=== PATIENT | male | born 1955 | race Caucasian/White ===

== ENCOUNTER 2016-12-26 07:54 | Emergency (ER) | payer OTHER ==
[~2016-12-26] VITALS: Ht 182.9 cm; Wt 94.0 kg
[~2016-12-26 07:54] MED LIST: ASPEC325 PO; LISI-461 PO; SIMV10TA2 PO
[2016-12-26 08:05] VITALS: TEMP 36.8; Ht 182.9 cm; Wt 94.0 kg
[2016-12-26] MEDS ORDERED: ASPI325T39 PO (08:30)
[2016-12-26] MEDS ORDERED: ROPI0.5T15 PO (08:30)
[2016-12-26] MEDS ORDERED: MULT-506 PO (08:30)
[2016-12-26] MEDS ORDERED: LORA-741 PO (08:30)
--- NOTE | 2016-12-26 08:32 | EMERGENCY ROOM VISIT NOTE ---
History Report prepared by Contreras: Salud Montenegro Under the Supervision of: Dr. Douglas Soares M.D. First contact with patient: 08:14 Chief Complaint: NAUSEA Stated Complaint: NOT SLEEPING,CANNOT SIT DOWN,NAUSEA Nursing Triage Summary: pt here with nausea, pt having burning pain all over. pt states this all started after masturbating. pt states feeling jittery, legs cramping. feels anxious. History of Present Illness The patient is a 61 year old male who presents to the Emergency Room with complaints of worsening tingling with onset one week ago. He rates his discomfort as a 10/10. The patient states that he had a stroke 5-6 years ago and that he still has weakness on his right side. He has had restless leg syndrome and neuropathy over the years. Last week, he states he drank too much alcohol and masturbated, and that afterwards, he felt as if an "electrical storm " was going on in his head. Since then, he cannot sit down without having jittery legs. He states that he has been in a "hazy fog." He has a "tinge" throughout his head. The patient started to feel better during the week. However , yesterday, he started to feel as if both legs were had a evqtejek-box-qatwp sensation. One day ago, he became very nauseated. He states that he is very scared. The patient denies fevers, headaches, trauma, taking a blood thinner, chest pain, shortness of breath, thinking of hurting himself. Additionally, the patient has a history of sciatica. Source of History: patient Onset: one week ago Position: other (global ) Symptom Intensity: 10/10 Quality: other (tingling) Timing: worsening Associated Symptoms: + nausea, No SOB, No chest pain, No fevers, No headache Note: He states that he has been in a "hazy fog." He has a "tinge" throughout his head. The patient started to feel better during the week. However, yesterday, he started to feel as if both legs were had a gswlncgg-udg-tuedc sensation. Review of Systems See HPI for pertinent positives & negatives. A total of 10 systems reviewed and were otherwise negative. Past Medical & Surgical Medical Problems: (1) Allergic reaction (2) Hemorrhoids (3) HTN (hypertension) (4) Sciatica Old medical records were reviewed. Nurse's notes were reviewed and I agree with. Family History Cancer Hypertension Social History Smoking Status: Former Smoker Marital Status: Housing Status: lives with family Occupation Status: unemployed Current/Historical Medications Scheduled Aspirin (Aspirin Ec), 325 MG PO DAILY Lisinopril (Zestril), 10 MG PO QAM Multivitamin (Multivitamin), 1 TAB PO DAILY Ropinirole (Requip), 0.5 MG PO HS Scheduled PRN Lorazepam (Ativan), 0.5 MG PO HS PRN for . Lorazepam (Ativan), 1 MG PO Q8 PRN for Anxiety/Agitation Allergies Coded Allergies: No Known Allergies (Verified , 12/26/16) Physical Exam Vital Signs Date Time Temp Pulse Resp B/P Pulse Ox O2 Delivery O2 Flow Rate FiO2 12/26/16 10:20 72 17 114/70 96 Room Air 12/26/16 09:01 68 12/26/16 09:00 65 20 112/70 96 Room Air 12/26/16 08:05 36.8 88 16 137/84 98 Room Air Physical Exam General: Non ill appearing, mildly anxious older male in no acute distress. HEENT: Normal cephalic atraumatic. Pupils are equal round and reactive to light. Extraocular movements are intact. Oropharynx is pink with moist mucous membranes. No swelling of the mouth lips or tongue. Neck: Supple with a midline trachea. No meningeal signs or stiffness, no JVD or bruits. No Stridor. Chest: Clear to auscultation bilaterally. No wheezes or rhonchi. No increased work of breathing. Heart: regular rate and rhythm. Abdomen: Soft nontender, nondistended without rebound guarding or rigidity. Extremities: No cyanosis clubbing or edema. No calf tenderness or assymetry Spine/Back. Non tender to palpation. No CVA tenderness Skin: Good turgor without rashes. Neurologic exam: Cranial nerves two through 12 are intact. Motor and sensation are intact and symmetrical throughout. Normal gait. No tremor. Medical Decision & Procedures ER Provider Diagnostic Interpretation: CT results as stated below per my review and radiologist interpretation: CT OF THE HEAD WITHOUT CONTRAST CLINICAL HISTORY: Diffuse tingling. History of cerebrovascular accident. COMPARISON STUDY: Head CT March 09, 2011 and MRI of the brain March 10, 2011. CT DOSE: 884.08 mGy.cm TECHNIQUE: Helical axial images of the head were obtained without IV contrast. Automated exposure control was utilized for the study. FINDINGS: No acute intracranial hemorrhage, midline shift or mass effect is present. Ventricular system is normal. Basilar cisterns are patent. There are no extra-axial collections. Valadez-white differentiation is maintained. There are no findings to suggest acute dural sinus thrombosis or acute territorial infarct. There is mild mucosal thickening of the ethmoid sinuses. Mastoid air cells are clear. There are no calvarial abnormalities. IMPRESSION: No acute intracranial findings. Electronically signed by: Keegan Car M.D. 12/26/2016 9:01 AM Dictated Date/Time: 12/26/2016 8:57 AM Laboratory Results 12/26/16 08:35 Red Blood Count 4.72, Mean Corpuscular Volume 90.0, Mean Corpuscular Hemoglobin 31.1, Mean Corpuscular Hemoglobin Concent 34.6, Mean Platelet Volume 11.2, Neutrophils (%) (Auto) 72.7, Lymphocytes (%) (Auto) 16.6, Monocytes (%) (Auto) 8.1, Eosinophils (%) (Auto) 2.1, Basophils (%) (Auto) 0.3, Neutrophils # (Auto) 4.52, Lymphocytes # (Auto) 1.03, Monocytes # (Auto) 0.50, Eosinophils # (Auto) 0.13, Basophils # (Auto) 0.02 12/26/16 08:35 Test 12/26/16 08:35 12/26/16 08:45 White Blood Count 6.21 K/uL (4.8-10.8) Red Blood Count 4.72 M/uL (4.7-6.1) Hemoglobin 14.7 g/dL (14.0-18.0) Hematocrit 42.5 % (42-52) Mean Corpuscular Volume 90.0 fL (80-100) Mean Corpuscular Hemoglobin 31.1 pg (25-34) Mean Corpuscular Hemoglobin Concent 34.6 g/dl (32-36) Platelet Count 215 K/uL (130-400) Mean Platelet Volume 11.2 fL (7.4-10.4) Neutrophils (%) (Auto) 72.7 % Lymphocytes (%) (Auto) 16.6 % Monocytes (%) (Auto) 8.1 % Eosinophils (%) (Auto) 2.1 % Basophils (%) (Auto) 0.3 % Neutrophils # (Auto) 4.52 K/uL (1.4-6.5) Lymphocytes # (Auto) 1.03 K/uL (1.2-3.4) Monocytes # (Auto) 0.50 K/uL (0.11-0.59) Eosinophils # (Auto) 0.13 K/uL (0-0.5) Basophils # (Auto) 0.02 K/uL (0-0.2) RDW Standard Deviation 42.9 fL (36.4-46.3) RDW Coefficient of Variation 13.1 % (11.5-14.5) Immature Granulocyte % (Auto) 0.2 % Immature Granulocyte # (Auto) 0.01 K/uL (0.00-0.02) Anion Gap 9.0 mmol/L (3-11) Est Creatinine Clear Calc Drug Dose 77.9 ml/min Estimated GFR () 75.7 Estimated GFR (Non- 65.3 BUN/Creatinine Ratio 11.8 (10-20) Calcium Level 9.0 mg/dl (8.5-10.1) Total Bilirubin 0.4 mg/dl (0.2-1) Direct Bilirubin < 0.1 mg/dl (0-0.2) Aspartate Amino Transf (AST/SGOT) 15 U/L (15-37) Alanine Aminotransferase (ALT/SGPT) 24 U/L (12-78) Alkaline Phosphatase 57 U/L (45-117) Total Protein 6.8 gm/dl (6.4-8.2) Albumin 3.6 gm/dl (3.4-5.0) Lipase 345 U/L (73-393) Bedside Troponin I 0.000 ng/ml (0-0.045) Laboratory studies as stated above per my review. Medications Administered Medications (Trade) Dose Ordered Sig/Khoa Route Start Time Stop Time Status Last Admin Dose Admin Lorazepam (Ativan 1MG Home Pack) 1 homepack UD ONCE PO 12/26/16 09:45 12/26/16 09:46 DC 12/26/16 09:45 1 HOMEPACK ECG Indication: nausea Rate (beats per minute): 68 Rhythm: normal sinus Findings: PVC, no acute ischemic change Comparison ECG Date: March 09, 2011 Change: no significant change ED Course 0817: Past medical records reviewed. The patient was evaluated in room B11, and a complete history and physical examination were performed. 0937: Upon reevaluation, the patient is doing well. I discussed the results and treatment plan with the patient. He verbalized agreement of the treatment plan. The patient was discharged home. 0945: Ativan 1 mg 1 homepack PO Medical Decision Differentials include, but are not limited to; anxiety, neuropathy, central neurologic process, cardiac disease, electrolyte or metabolic abnormality, infection. This patient comes in as described above. He was placed in room B 11. He is here for treatment and evaluation of tingling and restlessness and anxiety. He looks well on exam. He has no significant neurologic deficits. His vital signs are stable. He does suffer from restless leg syndrome at baseline. He has had a CVA in the past. In light of this, I did a CAT scan of his head as well as multiple blood testing and EKG. His EKG does not suggest acute cardiac event nor do his symptoms. His troponin is not elevated. He has no acute electrolyte or metabolic abnormality. Is nothing to suggest infection. CAT scan of his head is unremarkable. I think a lot of his symptoms are anxiety related. It could also be related his neuropathy. I did have him use Ativan 1 mg every 8 hours if needed. I told him this can make him drowsy and do not take before drinking, driving, working and do not use unless needed. He was encouraged to return if: Worsening of symptoms, fever or chills, weakness or weakness, any new problems or concerns. He should follow-up with his regular doctor Tuesday for recheck., Impression Primary Impression: Anxiety Additional Impressions: Tingling in extremities Nausea Scribe Attestation The scribe's documentation has been prepared under my direction and personally reviewed by me in its entirety. I confirm that the note above accurately reflects all work, treatment, procedures, and medical decision making performed by me. Departure Information Dispostion Home / Self-Care Prescriptions Lorazepam (ATIVAN) 1 Mg Tab 1 MG PO Q8 Y for Anxiety/Agitation, #10 TAB Prov: Douglas Soares M.D. 12/26/16 Referrals No Doctor, Assigned (PCP) Forms HOME CARE DOCUMENTATION FORM, IMPORTANT VISIT INFORMATION Patient Instructions My [facility] Additional Instructions Rest. Drink plenty of fluids. May use Ativan 1 mg every 8 hours if needed for anxiety Ativan may make you drowsy and do not take before drinking, driving, working. Return if: Worsening of symptoms, numbness or weakness, fever or chills, chest pain, any new problems or concerns Follow-up with your doctor on Tuesday for recheck. Problem Qualifiers
[2016-12-26 08:50] LABS: BASO % 0.3 %; BASO ABS # 0.02 K/uL (0-0.2); COMPLETE YES; EOS % 2.1 %; HEMATOCRIT 42.5 % (42-52); IG% 0.2 %; LYMPH % 16.6 %; LYMPH ABS # 1.03 K/uL (1.2-3.4); MEAN CORPUSCULAR HEMOGLOBIN 31.1 pg (25-34); MEAN CORPUSCULAR HGB CONC 34.6 g/dl (32-36); MEAN PLATELET VOLUME 11.2 fL (7.4-10.4); MONO % 8.1 %; NEUT % 72.7 %; PLATELET COUNT 215 K/uL (130-400); RED BLOOD COUNT 4.72 M/uL (4.7-6.1); WHITE BLOOD COUNT 6.21 K/uL (4.8-10.8)
--- NOTE | 2016-12-26 09:02 | DIAGNOSTIC IMAGING REPORT ---
CT OF THE HEAD WITHOUT CONTRAST CLINICAL HISTORY: Diffuse tingling. History of cerebrovascular accident. COMPARISON STUDY: Head CT March 09, 2011 and MRI of the brain March 10, 2011. CT DOSE: 884.08 mGy.cm TECHNIQUE: Helical axial images of the head were obtained without IV contrast. Automated exposure control was utilized for the study. FINDINGS: No acute intracranial hemorrhage, midline shift or mass effect is present. Ventricular system is normal. Basilar cisterns are patent. There are no extra-axial collections. Valadez-white differentiation is maintained. There are no findings to suggest acute dural sinus thrombosis or acute territorial infarct. There is mild mucosal thickening of the ethmoid sinuses. Mastoid air cells are clear. There are no calvarial abnormalities. IMPRESSION: No acute intracranial findings. Electronically signed by: Keegan Car M.D. 12/26/2016 9:01 AM Dictated Date/Time: 12/26/2016 8:57 AM
[2016-12-26 09:07] LABS: ALT/SGPT 24 U/L (12-78); BLOOD UREA NITROGEN 14 mg/dl (7-18); BUN/CREATININE RATIO 11.8 (10-20); CARBON DIOXIDE 26 mmol/L (21-32); CHLORIDE 107 mmol/L (98-107); GLUCOSE 139 mg/dl (70-99); POTASSIUM 3.7 mmol/L (3.5-5.1); SODIUM 142 mmol/L (136-145)
[2016-12-26 09:10] LABS: ALKALINE PHOSPHATASE 57 U/L (45-117); AST/SGOT 15 U/L (15-37)
[2016-12-26] MEDS ORDERED: ATV/1 PO (09:41)
[2016-12-26] MEDS ORDERED: ATIVAN 1MG HOMEPACK PO ONE (09:45)
[2016-12-26 10:20] VITALS: BP 114/70; PULSE 72; O2SAT 96
== END 2016-12-26 10:28 | disposition home or self-care (01) ==
LOC: C.EDB 07:55
DX: F41.9 Anxiety disorder, unspecified (principal); R11.0 Nausea; Z86.73 Personal history of transient ischemic attack (TIA), and cerebral infarction without residual deficits; G62.9 Polyneuropathy, unspecified; I10 Essential (primary) hypertension; Z87.891 Personal history of nicotine dependence

== ENCOUNTER 2017-10-22 17:05 | Emergency (ER) | payer OTHER ==
[~2017-10-22] VITALS: Ht 180.3 cm; Wt 91.0 kg
[~2017-10-22 17:05] MED LIST changes: -ASPEC325 PO; +ASPI325T39 PO; +LORA-741 PO; +MULT-506 PO; +ROPI0.5T15 PO; -SIMV10TA2 PO
[2017-10-22 17:07] VITALS: TEMP 36.9; Ht 180.3 cm; Wt 91.0 kg
[2017-10-22] MEDS ORDERED: MoRPHine SULFATE 4 MG/ML 1 ML CARP\\VIAL IV STA (17:20)
[2017-10-22] MEDS ORDERED: ONDANSETRON INJ 2 MG/ML 2 ML VIAL IV STA (17:20)
[2017-10-22] MEDS ORDERED: KETOROLAC TROMETHAMINE 30 MG/ML VIAL IV STA (17:20)
[2017-10-22] MEDS ORDERED: OPTIRAY 320 IV PRN (17:30)
[2017-10-22 17:54] LABS: BASO % 0.3 %; BASO ABS # 0.02 K/uL (0-0.2); EOS % 3.3 %; EOS ABS # 0.23 K/uL (0-0.5); HEMATOCRIT 45.6 % (42-52); HEMOGLOBIN 15.5 g/dL (14.0-18.0); IG# 0.01 K/uL (0.00-0.02); LYMPH % 32.8 %; MEAN CELL VOLUME 89.6 fL (80-100); MEAN CORPUSCULAR HEMOGLOBIN 30.5 pg (25-34); MEAN PLATELET VOLUME 10.9 fL (7.4-10.4); MONO % 7.8 %; MONO ABS # 0.55 K/uL (0.11-0.59); NEUT % 55.7 %; NEUT ABS # 3.91 K/uL (1.4-6.5); PLATELET COUNT 219 K/uL (130-400); RED CELL DISTRIBUTION WIDTH SD 42.7 fL (36.4-46.3); WHITE BLOOD COUNT 7.02 K/uL (4.8-10.8)
[2017-10-22 18:15] LABS: ALBUMIN 3.7 gm/dl (3.4-5.0); ALT/SGPT 30 U/L (12-78); AST/SGOT 15 U/L (15-37); BLOOD UREA NITROGEN 12 mg/dl (7-18); CALCIUM 8.7 mg/dl (8.5-10.1); CARBON DIOXIDE 24 mmol/L (21-32); CREATININE 1.05 mg/dl (0.60-1.40); GLUCOSE 95 mg/dl (70-99); LIPASE 210 U/L (73-393); POTASSIUM 3.6 mmol/L (3.5-5.1); SODIUM 139 mmol/L (136-145)
[2017-10-22 18:20] LABS: ALKALINE PHOSPHATASE 69 U/L (45-117); TOTAL PROTEIN 7.1 gm/dl (6.4-8.2)
--- NOTE | 2017-10-22 18:21 | DIAGNOSTIC IMAGING REPORT ---
SINGLE VIEW CHEST CLINICAL HISTORY: Left upper quadrant abdominal pain. FINDINGS: An AP, portable, upright chest radiograph is compared to study dated 06/08/2012. The examination is degraded by portable technique and patient rotation. The cardiomediastinal silhouette is unremarkable. A calcified granuloma is seen at the right lung base. The lungs and pleural spaces are otherwise clear. No pneumothorax is seen. The bony thorax is grossly intact. IMPRESSION: No active disease in the chest. Electronically signed by: Thomas Jean Baptiste M.D. 10/22/2017 6:19 PM Dictated Date/Time: 10/22/2017 6:19 PM
--- NOTE | 2017-10-22 19:26 | DIAGNOSTIC IMAGING REPORT ---
CT SCAN OF THE ABDOMEN AND PELVIS WITH IV CONTRAST CLINICAL HISTORY: Left upper quadrant abdominal pain. COMPARISON STUDY: Abdominal CT dated 09/11/2012 TECHNIQUE: Following the IV administration of 94 cc of Optiray 320, CT scan of the abdomen and pelvis is performed from the lung bases to the proximal femora. Images are reviewed in the axial, sagittal, and coronal planes. IV contrast was administered without complication. A dose lowering technique was utilized adhering to the principles of ALARA. CT DOSE: 517.96 mGy.cm FINDINGS: Lung bases: The heart is top normal in size and without pericardial effusion. A large calcified granuloma seen at the right lung base. The lung bases are otherwise clear. Liver: The contrast-enhanced liver is normal in size, contour, and attenuation. There is no intrahepatic biliary ductal dilatation. The hepatic veins and portal veins are patent. Gallbladder: Unremarkable. Spleen: Normal in size and attenuation. There are calcified splenic granulomas. Pancreas: There are numerous parenchymal calcifications suggesting chronic pancreatitis. The pancreas is otherwise normal in appearance. No peripancreatic inflammation or fluid is seen. Adrenal glands: Unremarkable. Kidneys: The contrast enhanced kidneys demonstrate mild cortical atrophy and are without hydronephrosis. The kidneys enhance symmetrically. Numerous foci of cortical scarring are present in the left kidney. Abdominal vasculature: The abdominal aorta is normal in course and caliber. Bowel: There is moderate to advanced colonic diverticulosis without CT evidence of acute diverticulitis. Mild colonic fecal retention is observed. No bowel obstruction is seen. The appendix is well-visualized and normal. Peritoneum: There is no intraperitoneal free air or abdominal ascites. Lymphadenopathy: None. Pelvic viscera: The prostate gland is enlarged and heterogeneous, measuring 5.8 cm in transverse diameter. There is median lobe hypertrophied. The bladder is normal as visualized. Skeletal structures: No lytic or blastic lesions are seen. IMPRESSION: 1. There are no acute infectious or inflammatory findings in the abdomen or pelvis. 2. Moderate to advanced colonic diverticulosis without CT evidence of acute diverticulitis. 3. Findings are consistent with chronic pancreatitis. 4. Foci of cortical scarring are present in the upper pole of the left kidney. 5. Additional findings as above. Electronically signed by: Thomas Jean Baptiste M.D. 10/22/2017 7:24 PM Dictated Date/Time: 10/22/2017 7:16 PM
[2017-10-22 20:06] VITALS: BP 140/91; PULSE 64; O2SAT 96
--- NOTE | 2017-10-23 00:17 | EMERGENCY ROOM VISIT NOTE ---
History Report prepared by Contreras: Zachary Sorto Under the Supervision of: Wood SolorzanoO. First contact with patient: 17:11 Chief Complaint: FLANK PAIN Stated Complaint: L FLANK PAIN History of Present Illness The patient is a 62 year old male who presents to the Emergency Room with complaints of intermittent abdominal pain for two weeks. The patient notes the pain has been radiating to his back from his left side. He notes the pain became more frequent two days ago and this morning the pain is now constant. He notes movement worsens the pain. He currently rates his pain a 6/10 in severity. He notes constipation, though states a history of constipation. He has a history of CVA six years ago. Pt denies headache, change in vision, fevers , chest pain, cough, runny nose, shortness of breath, nausea, vomiting, diarrhea , pain with urination, blood in urine, and melena. Source of History: patient Onset: two weeks Position: abdomen (left side) Symptom Intensity: 6/10 Timing: intermittent Modifying Factors (Worsening): movement Associated Symptoms: + urinary symptoms (no pain with urination, no blood in urine), No headache, No cough, No chest pain, No SOB, No nausea, No vomiting , No melena, No diarrhea Note: He denies change in vision and runny nose. Review of Systems See HPI for pertinent positives & negatives. A total of 10 systems reviewed and were otherwise negative. Past Medical & Surgical Medical Problems: (1) Allergic reaction (2) Hemorrhoids (3) HTN (hypertension) (4) Sciatica Family History Cancer Hypertension Social History Smoking Status: Former Smoker Marital Status: Housing Status: lives with family Occupation Status: unemployed Current/Historical Medications Scheduled Aspirin (Aspirin Ec), 325 MG PO DAILY Lisinopril (Zestril), 10 MG PO QAM Ropinirole (Requip), 0.5 MG PO HS Scheduled PRN Lorazepam (Ativan), 0.5 MG PO HS PRN for . Allergies Coded Allergies: No Known Allergies (Verified , 12/26/16) Physical Exam Vital Signs Date Time Temp Pulse Resp B/P (MAP) Pulse Ox O2 Delivery O2 Flow Rate FiO2 10/22/17 20:06 64 18 140/91 96 10/22/17 18:29 66 20 122/92 96 Room Air 10/22/17 17:57 78 20 155/95 99 Room Air 10/22/17 17:07 36.9 95 18 172/114 97 Room Air Physical Exam GENERAL: Sitting up in bed, alert, well appearing, well nourished, no distress, non-toxic. Holding LUQ. EYE EXAM: normal conjunctiva. OROPHARYNX: no exudate, no erythema, lips, buccal mucosa, and tongue normal and mucous membranes are moist NECK: supple, no nuchal rigidity, no adenopathy, non-tender LUNGS: Clear to auscultation. Normal chest wall mechanics HEART: no murmurs, S1 normal and S2 normal ABDOMEN: abdomen soft, minimal tenderness to LUQ, normo-active bowel sounds, no masses, no rebound or guarding. BACK: Back is symmetrical on inspection and there is no deformity, no midline tenderness, no CVA tenderness. SKIN: no rashes and no bruising UPPER EXTREMITIES: upper extremities are grossly normal. LOWER EXTREMITIES: No pitting edema. NEURO EXAM: Normal sensorium, cranial nerves II-XII grossly intact, normal speech, no gross weakness of arms, no gross weakness of legs. Medical Decision & Procedures ER Provider Diagnostic Interpretation: Radiology results as stated below per my review and the radiologist's interpretation: SINGLE VIEW CHEST CLINICAL HISTORY: Left upper quadrant abdominal pain. FINDINGS: An AP, portable, upright chest radiograph is compared to study dated 06/08/2012. The examination is degraded by portable technique and patient rotation. The cardiomediastinal silhouette is unremarkable. A calcified granuloma is seen at the right lung base. The lungs and pleural spaces are otherwise clear. No pneumothorax is seen. The bony thorax is grossly intact. IMPRESSION: No active disease in the chest. Electronically signed by: Thomas Jean Baptiste M.D. 10/22/2017 6:19 PM Dictated Date/Time: 10/22/2017 6:[address] SCAN OF THE ABDOMEN AND PELVIS WITH IV CONTRAST CLINICAL HISTORY: Left upper quadrant abdominal pain. COMPARISON STUDY: Abdominal CT dated 09/11/2012 TECHNIQUE: Following the IV administration of 94 cc of Optiray 320, CT scan of the abdomen and pelvis is performed from the lung bases to the proximal femora. Images are reviewed in the axial, sagittal, and coronal planes. IV contrast was administered without complication. A dose lowering technique was utilized adhering to the principles of ALARA. CT DOSE: 517.96 mGy.cm FINDINGS: Lung bases: The heart is top normal in size and without pericardial effusion. A large calcified granuloma seen at the right lung base. The lung bases are otherwise clear. Liver: The contrast-enhanced liver is normal in size, contour, and attenuation. There is no intrahepatic biliary ductal dilatation. The hepatic veins and portal veins are patent. Gallbladder: Unremarkable. Spleen: Normal in size and attenuation. There are calcified splenic granulomas. Pancreas: There are numerous parenchymal calcifications suggesting chronic pancreatitis. The pancreas is otherwise normal in appearance. No peripancreatic inflammation or fluid is seen. Adrenal glands: Unremarkable. Kidneys: The contrast enhanced kidneys demonstrate mild cortical atrophy and are without hydronephrosis. The kidneys enhance symmetrically. Numerous foci of cortical scarring are present in the left kidney. Abdominal vasculature: The abdominal aorta is normal in course and caliber. Bowel: There is moderate to advanced colonic diverticulosis without CT evidence of acute diverticulitis. Mild colonic fecal retention is observed. No bowel obstruction is seen. The appendix is well-visualized and normal. Peritoneum: There is no intraperitoneal free air or abdominal ascites. Lymphadenopathy: None. Pelvic viscera: The prostate gland is enlarged and heterogeneous, measuring 5.8 cm in transverse diameter. There is median lobe hypertrophied. The bladder is normal as visualized. Skeletal structures: No lytic or blastic lesions are seen. IMPRESSION: 1. There are no acute infectious or inflammatory findings in the abdomen or pelvis. 2. Moderate to advanced colonic diverticulosis without CT evidence of acute diverticulitis. 3. Findings are consistent with chronic pancreatitis. 4. Foci of cortical scarring are present in the upper pole of the left kidney. 5. Additional findings as above. Electronically signed by: Thomas Jean Baptiste M.D. 10/22/2017 7:24 PM Dictated Date/Time: 10/22/2017 7:16 PM Laboratory Results 10/22/17 17:44 Red Blood Count 5.09, Mean Corpuscular Volume 89.6, Mean Corpuscular Hemoglobin 30.5, Mean Corpuscular Hemoglobin Concent 34.0, Mean Platelet Volume 10.9, Neutrophils (%) (Auto) 55.7, Lymphocytes (%) (Auto) 32.8, Monocytes (%) (Auto) 7.8, Eosinophils (%) (Auto) 3.3, Basophils (%) (Auto) 0.3, Neutrophils # (Auto) 3.91, Lymphocytes # (Auto) 2.30, Monocytes # (Auto) 0.55, Eosinophils # (Auto) 0.23, Basophils # (Auto) 0.02 10/22/17 17:44 Test 10/22/17 17:44 White Blood Count 7.02 K/uL (4.8-10.8) Red Blood Count 5.09 M/uL (4.7-6.1) Hemoglobin 15.5 g/dL (14.0-18.0) Hematocrit 45.6 % (42-52) Mean Corpuscular Volume 89.6 fL (80-100) Mean Corpuscular Hemoglobin 30.5 pg (25-34) Mean Corpuscular Hemoglobin Concent 34.0 g/dl (32-36) Platelet Count 219 K/uL (130-400) Mean Platelet Volume 10.9 fL (7.4-10.4) Neutrophils (%) (Auto) 55.7 % Lymphocytes (%) (Auto) 32.8 % Monocytes (%) (Auto) 7.8 % Eosinophils (%) (Auto) 3.3 % Basophils (%) (Auto) 0.3 % Neutrophils # (Auto) 3.91 K/uL (1.4-6.5) Lymphocytes # (Auto) 2.30 K/uL (1.2-3.4) Monocytes # (Auto) 0.55 K/uL (0.11-0.59) Eosinophils # (Auto) 0.23 K/uL (0-0.5) Basophils # (Auto) 0.02 K/uL (0-0.2) RDW Standard Deviation 42.7 fL (36.4-46.3) RDW Coefficient of Variation 13.0 % (11.5-14.5) Immature Granulocyte % (Auto) 0.1 % Immature Granulocyte # (Auto) 0.01 K/uL (0.00-0.02) D-Dimer < 190 ug/L FEU (0-500) Urine Color YELLOW Urine Appearance CLEAR (CLEAR) Urine pH 6.0 (4.5-7.5) Urine Specific [place] 1.009 (1.000-1.030) Urine Protein NEG (NEG) Urine Glucose (UA) NEG (NEG) Urine Ketones NEG (NEG) Urine Occult Blood NEG (NEG) Urine Nitrite NEG (NEG) Urine Bilirubin NEG (NEG) Urine Urobilinogen NEG (NEG) Urine Leukocyte Esterase NEG (NEG) Urine WBC (Auto) 0 /hpf (0-5) Urine RBC (Auto) 0-4 /hpf (0-4) Urine Hyaline Casts (Auto) 0 /lpf (0-5) Urine Epithelial Cells (Auto) 0-5 /lpf (0-5) Urine Bacteria (Auto) NEG (NEG) Anion Gap 7.0 mmol/L (3-11) Est Creatinine Clear Calc Drug Dose 85.2 ml/min Estimated GFR () 88.4 Estimated GFR (Non- 76.2 BUN/Creatinine Ratio 11.5 (10-20) Calcium Level 8.7 mg/dl (8.5-10.1) Total Bilirubin 0.3 mg/dl (0.2-1) Direct Bilirubin < 0.1 mg/dl (0-0.2) Aspartate Amino Transf (AST/SGOT) 15 U/L (15-37) Alanine Aminotransferase (ALT/SGPT) 30 U/L (12-78) Alkaline Phosphatase 69 U/L (45-117) Troponin I < 0.015 ng/ml (0-0.045) Total Protein 7.1 gm/dl (6.4-8.2) Albumin 3.7 gm/dl (3.4-5.0) Lipase 210 U/L (73-393) Laboratory results per my review. Medications Administered Medications (Trade) Dose Ordered Sig/Khoa Route Start Time Stop Time Status Last Admin Dose Admin Morphine Sulfate (MoRPHine SULFATE INJ) 4 mg NOW STAT IV 10/22/17 17:20 10/22/17 17:22 DC 10/22/17 17:53 4 MG Ketorolac Tromethamine (Toradol Inj) 30 mg NOW STAT IV 10/22/17 17:20 10/22/17 17:22 DC 10/22/17 17:53 30 MG Ondansetron HCl (Zofran Inj) 4 mg NOW STAT IV 10/22/17 17:20 10/22/17 17:22 DC 10/22/17 17:52 4 MG ECG Indication: abdominal pain Rate (beats per minute): 80 Rhythm: sinus rhythm Findings: no ectopy, other (Normal axis) Comparison ECG Date: Patient's electrocardiogram interpreted by me ED Course ED COURSE: Vital signs were reviewed and showed hypertensive The patients medical record was reviewed The above diagnostic studies were performed and reviewed. ED treatments and interventions as stated above. 1711: The patient was evaluated in room B10. A complete history and physical examination was performed. 1720: Ordered Toradol 30 mg IV and Morphine Sulfate 4 mg IV 1945: Upon reevaluation, the patient is feeling better. I discussed my findings with the patient and he understands and agrees with the treatment plan. Based on the patients age, coexisting illnesses, exam and lab findings the decision to treat as an outpatient was made. The patient remained stable while under my care. The patient appeared well at the time of discharge. Medical Decision Differential diagnoses includes but is not limited to gastritis, peptic ulcer disease, GERD, gallbladder disease, pancreatitis, small bowel obstruction, acute coronary syndrome, pericarditis, ischemic bowel, irritable bowel disease, irritable bowel syndrome, appendicitis, diverticulitis, malignancy, hernia, urinary tract infection, torsion, perforation, trauma, infectious. Patient is a 62-year-old male who presents to ER for left flank pain. This is been present for the past 2-3 weeks. Over the past 2 days and has been worsening. He does struggle with constipation. On exam he has no chest pain or shortness of breath. Pain is in the left upper quadrant. CT abdomen and pelvis was unremarkable. CBC all BMP, LFTs, bilirubin lipase is unremarkable. Troponin was negative. D-dimer was negative. UA was unremarkable. Chest x- ray was unremarkable. Patient was updated bedside. Patient was given IV Toradol, morphine and fluids. He did feel better. Discussed with Pt concerning signs and symptoms to watch out for. Pt was instructed to follow up with their PCP and discussed with the patient their option to return to the ED at anytime for persistent or worsening symptoms. The appropriate anticipatory guidance and out-patient management, including indications for return to the emergency department, were explained at length to the patient and understood. Medication Reconcilliation Current Medication List: was personally reviewed by me Blood Pressure Screening Patient's blood pressure: Elevated blood pressure Blood pressure disposition: Elevated BP felt to be situational Impression Primary Impression: Periumbilical abdominal pain Scribe Attestation The scribe's documentation has been prepared under my direction and personally reviewed by me in its entirety. I confirm that the note above accurately reflects all work, treatment, procedures, and medical decision making performed by me. Departure Information Dispostion Home / Self-Care Referrals No Doctor, Assigned (PCP) Forms HOME CARE DOCUMENTATION FORM, IMPORTANT VISIT INFORMATION Patient Instructions Abdominal Pain - [facility], My [facility] Additional Instructions Please follow up with your primary care doctor with in the next 24 hours. Any worsening of your symptoms, please return to the ED immediately. This includes any fevers greater than 100.4, worsening pain, chest pain, shortness breath, persistent nausea, vomiting, unable to eat or drink, or any other concerning signs or symptoms from your standpoint. Please take Tylenol or Motrin as needed for pain. He may benefit from some laxatives to help move your bowels as you are having constipation.
== END 2017-10-22 20:08 | disposition home or self-care (01) ==
LOC: C.EDB 17:06
DX: R10.33 Periumbilical pain (principal); K86.9 Disease of pancreas, unspecified; K57.90 Diverticulosis of intestine, part unspecified, without perforation or abscess without bleeding

== ENCOUNTER 2018-01-02 13:26 | Inpatient (IN) | payer OTHER ==
[~2018-01-02] VITALS: Ht 182.9 cm; Wt 90.2 kg
[~2018-01-02 13:26] MED LIST changes: -MULT-506 PO
[2018-01-02] MEDS ORDERED: SODIUM CHLORIDE 0.9% 500ML 500 ML IV STA (13:46)
[2018-01-02] MEDS ORDERED: DILTIAZEM BOLUS / DRIP IV STA (13:46)
[2018-01-02] MEDS ORDERED: DILTIAZEM HCL 5 MG/ML 5 ML VIAL IV STA (13:46)
--- NOTE | 2018-01-02 14:01 | DIAGNOSTIC IMAGING REPORT ---
SINGLE VIEW CHEST CLINICAL HISTORY: Atypical chest pain. FINDINGS: An AP, portable, upright chest radiograph is compared to study dated 10/22/2017. The examination is degraded by portable technique and patient rotation. The cardiomediastinal silhouette is unremarkable. A calcified granuloma is noted at the right lung base. The lungs and pleural spaces are otherwise clear. No pneumothorax is seen. The bony thorax is grossly intact. IMPRESSION: No active disease in the chest. Electronically signed by: Thomas Jean Baptiste M.D. 01/02/2018 2:00 PM Dictated Date/Time: 01/02/2018 1:59 PM
[2018-01-02 14:11] LABS: BASO % 0.3 %; BASO ABS # 0.03 K/uL (0-0.2); EOS % 0.9 %; EOS ABS # 0.11 K/uL (0-0.5); HEMATOCRIT 45.9 % (42-52); HEMOGLOBIN 16.3 g/dL (14.0-18.0); IG# 0.02 K/uL (0.00-0.02); LYMPH % 15.6 %; LYMPH ABS # 1.81 K/uL (1.2-3.4); MEAN CELL VOLUME 89.5 fL (80-100); MEAN CORPUSCULAR HEMOGLOBIN 31.8 pg (25-34); MEAN CORPUSCULAR HGB CONC 35.5 g/dl (32-36); MONO % 9.6 %; MONO ABS # 1.12 K/uL (0.11-0.59); NEUT % 73.4 %; NEUT ABS # 8.54 K/uL (1.4-6.5); PLATELET COUNT 254 K/uL (130-400); RED CELL DISTRIBUTION WIDTH CV 13.3 % (11.5-14.5); RED CELL DISTRIBUTION WIDTH SD 43.6 fL (36.4-46.3); WHITE BLOOD COUNT 11.63 K/uL (4.8-10.8)
[2018-01-02] MEDS: DILTIAZEM HCL INJ 125 MG in DEXTROSE 5% 100ML IV PRN ×2 (14:15→23:10)
[2018-01-02 14:23] LABS: PTT PATIENT 24.2 SECONDS (21.0-31.0)
[2018-01-02 14:29] LABS: CALCIUM 9.1 mg/dl (8.5-10.1); CREATININE 1.09 mg/dl (0.60-1.40); POTASSIUM 3.9 mmol/L (3.5-5.1)
[2018-01-02] MEDS ORDERED: MULTI-VITAMIN INFUSION INJ 10 ML, THIAMINE HCL INJ 100 MG, FoLIC ACID INJ 1 MG in SODIU... IV ONE (14:30)
[2018-01-02] MEDS ORDERED: LISI10TA PO (14:37)
[2018-01-02] MEDS ORDERED: HEPARIN SOD (PORCINE) 1000 UNIT/ML 10 ML VIAL ONE (14:37)
[2018-01-02] MEDS ORDERED: HEPARIN 25000 UNIT/500 ML D5W ONE (14:37)
[2018-01-02] MEDS ORDERED: DILTIAZEM BOLUS / DRIP IV SCH (15:45)
[2018-01-02] MEDS ORDERED: LORAZEPAM 0.5 MG TAB PO PRN (15:45)
[2018-01-02] MEDS ORDERED: ALUMINUM/MAGNESIUM/SIMETH (MAALOX MAX) 30 ML UDC PO PRN (16:00)
[2018-01-02] MEDS ORDERED: POLYETHYLENE (MIRALAX) 17 GM PACK PO PRN (16:00)
[2018-01-02] MEDS ORDERED: MAGNESIUM HYDROXIDE SUSP 30 ML UDC PO PRN (16:00)
[2018-01-02] MEDS ORDERED: ONDANSETRON INJ 2 MG/ML 2 ML VIAL IV PRN (16:00)
[2018-01-02] MEDS ORDERED: ACETAMINOPHEN 325 MG TAB PO PRN (16:00)
--- NOTE | 2018-01-02 16:03 | History and Physical ---
History & Physical Date & Time of Service: Jan 02, 2018 at 15:45 Chief Complaint: Chest Pain Primary Care Physician: No Doctor, Assigned History of Present Illness Source: patient 62 year old gentleman with complaints of palpitations, chest pain, light headedness, some shortness of breath and weakness. Hx of prior CVA 2010. Former smoker. continues to drink regularly (3 to 4 drinks daily), admits to drinking more over the weekend. Three days ago started with the palpitations, feeling week, nausea, chest tightness. symptoms persisted and he presented to the ED for evaluation. No fever or chills. No diarrhea. No ankle swelling. No focal deficits or complaints although notes right side is weaker than the left since his stroke. Found to be in Afib with RVR in ED. Given cardizem bolus and now on cardizem gtt. Heart rate currently in the 110 to 120 range. Still with palpitations. Initial trop normal. CXR with no active disease. Mg and TSH normal. Also given a banana bag and started on a heparin gtt. Hospital medicine was asked to see the patient and he will be placed under the hospitalist service. Past Medical/Surgical History Medical Problems: (1) Anxiety (2) HTN (hypertension) (3) Prior CVA (4) RLS Past surgical history denies any significant surgeries Family History Cancer Hypertension reviewed Social History ETOH abuse - 3 to 4 drinks a day stopped smoking in 2010 Smoking Status: Former Smoker Smokeless Tobacco Use: No Alcohol Use: heavy Drug Use: none Marital Status: Housing status: lives with family Occupational Status: unemployed Immunizations History of Influenza Vaccine: Unknown Influenza Vaccine Date: Jul 09, 2006 History of Tetanus Vaccine?: Unknown History of Pneumococcal: Unknown History of Hepatitis B Vaccine: Unknown Allergies Coded Allergies: No Known Allergies (Verified , 01/02/18) Home Medications Scheduled Aspirin (Aspirin Ec), 162.5 MG PO HS Lisinopril (Prinivil), 10 MG PO QAM Ropinirole (Requip), 0.5 MG PO HS Scheduled PRN Lorazepam (Ativan), 0.5 MG PO HS PRN for . Review of Systems Constitutional: No fever, No chills, No sweats, No weight loss, No weakness, No fatigue, No problem reported Eyes: No worsening of vision, No eye pain, No redness, No discharge, No diplopia, No problem reported ENT: No hearing loss, No unusual epistaxis, No nasal symptoms, No sore throat, No tinnitus, No dental problems, No trouble swallowing, No problem reported Respiratory: No cough, No sputum, No wheezing, No shortness of breath, No dyspnea on exertion, No dyspnea at rest, No hemoptysis, No problem reported Cardiovascular: + chest pain, + palpitations Abdomen: + nausea, No pain, No vomiting, No diarrhea, No constipation, No GI bleeding, No problem reported Musculoskeletal: No joint pain, No muscle pain, No swelling, No calf pain, No problem reported Genitourinary - Male: No hematuria, No dysuria, No urinary frequency, No urinary urgency, No urinary hesitancy, No urinary retention, No urinary incontinence, No penile discharge, No lesions, No impotence, No problem reported Endocrine: No fatigue, No excessive thirst, No excessive urination, No problem reported Hematologic / Lymphatic: No abnormal bleeding/bruising, No clotting problems, No swollen lymph nodes, No night sweats, No problem reported Integumentary: No rash, No itch, No new/changing skin lesions, No color change , No bleeding, No problem reported Allergic / Immunologic: No environmental allergies, No seasonal allergies, No pet sensitivities, No food allergies, No hives, No frequent infections, No poor healing, No prolonged convalescence, No problem reported Physical Exam Vital Signs Date Time Temp Pulse Resp B/P (MAP) Pulse Ox O2 Delivery O2 Flow Rate FiO2 01/02/18 15:24 113 18 113/80 97 Room Air 01/02/18 14:51 111 18 127/84 97 Room Air 01/02/18 14:44 98 Room Air 01/02/18 14:04 95 Room Air 01/02/18 14:01 122/81 01/02/18 13:56 126 14 95 01/02/18 13:55 98 Room Air 01/02/18 13:43 137 01/02/18 13:40 125/87 01/02/18 13:29 36.6 122 20 113/76 96 Room Air General Appearance: WD/WN Head: normocephalic, atraumatic Eyes: normal inspection, sclerae normal ENT: pharynx normal Neck: supple, no JVD Respiratory/Chest: chest non-tender, lungs clear, normal breath sounds Cardiovascular: no edema, no murmur, + irregularly irregular Abdomen/GI: normal bowel sounds, non tender, soft Back: normal inspection, no CVA tenderness Extremities/Musculoskelatal: normal inspection, no calf tenderness, no pedal edema Neurologic/Psych: no motor/sensory deficits, alert, oriented x 3 Skin: normal color Diagnostics Laboratory Results Results Past 24 Hours Test 01/02/18 13:59 01/02/18 14:00 01/02/18 15:36 Range/Units Bedside Troponin I < 0.030 0-0.045 ng/ml White Blood Count 11.63 4.8-10.8 K/uL Red Blood Count 5.13 4.7-6.1 M/uL Hemoglobin 16.3 14.0-18.0 g/dL Hematocrit 45.9 42-52 % Mean Corpuscular Volume 89.5 80-100 fL Mean Corpuscular Hemoglobin 31.8 25-34 pg Mean Corpuscular Hemoglobin Concent 35.5 32-36 g/dl Platelet Count 254 130-400 K/uL Mean Platelet Volume 11.0 7.4-10.4 fL Neutrophils (%) (Auto) 73.4 % Lymphocytes (%) (Auto) 15.6 % Monocytes (%) (Auto) 9.6 % Eosinophils (%) (Auto) 0.9 % Basophils (%) (Auto) 0.3 % Neutrophils # (Auto) 8.54 1.4-6.5 K/uL Lymphocytes # (Auto) 1.81 1.2-3.4 K/uL Monocytes # (Auto) 1.12 0.11-0.59 K/uL Eosinophils # (Auto) 0.11 0-0.5 K/uL Basophils # (Auto) 0.03 0-0.2 K/uL RDW Standard Deviation 43.6 36.4-46.3 fL RDW Coefficient of Variation 13.3 11.5-14.5 % Immature Granulocyte % (Auto) 0.2 % Immature Granulocyte # (Auto) 0.02 0.00-0.02 K/uL Prothrombin Time 10.2 9.0-12.0 SECONDS Prothromb Time International Ratio 1.0 0.9-1.1 Activated Partial Thromboplast Time 24.2 21.0-31.0 SECONDS Partial Thromboplastin Ratio 0.9 Sodium Level 141 136-145 mmol/L Potassium Level 3.9 3.5-5.1 mmol/L Chloride Level 109 98-107 mmol/L Carbon Dioxide Level 23 21-32 mmol/L Anion Gap 9.0 3-11 mmol/L Blood Urea Nitrogen 15 7-18 mg/dl Creatinine 1.09 0.60-1.40 mg/dl Est Creatinine Clear Calc Drug Dose 78.1 ml/min Estimated GFR () 84.5 Estimated GFR (Non- 72.9 BUN/Creatinine Ratio 13.9 10-20 Random Glucose 124 70-99 mg/dl Calcium Level 9.1 8.5-10.1 mg/dl Magnesium Level 2.4 1.8-2.4 mg/dl Thyroid Stimulating Hormone (TSH) 0.604 0.300-4.500 uIu/ml Diagnostic Radiology SINGLE VIEW CHEST CLINICAL HISTORY: Atypical chest pain. FINDINGS: An AP, portable, upright chest radiograph is compared to study dated 10/22/2017. The examination is degraded by portable technique and patient rotation. The cardiomediastinal silhouette is unremarkable. A calcified granuloma is noted at the right lung base. The lungs and pleural spaces are otherwise clear. No pneumothorax is seen. The bony thorax is grossly intact. IMPRESSION: No active disease in the chest. CXR normal EKG a fib with RVR - no acute ST elevations Impression Assessment and Plan 62 year old gentleman with complaints of palpitations, chest pain, light headedness, some shortness of breath and weakness.Found to be in Afib with RVR in ED. Given cardizem bolus and now on cardizem gtt. 1. Paroxysmal Atrial fibrillation with rapid ventricular response. - started on Cardizem gtt and heparin gtt which will continue. - check ECHO and consult cards - will likely need chronic anticoagulation given prior CVA 2. ETOH abuse with high potential for withdrawal - banana bag daily x 3 - PRN lorazepam 3. HTN - continue lisinopril 4. RLS - continue home med 5. full code. 6. DVT proph with Heparin Gtt. 7. ELS 2 midnight. Resuscitation Status full code VTE Prophylaxis Will order VTE Prophylaxis: Yes Social Service Consult None Apply
[2018-01-02] MEDS ORDERED: LORAZEPAM 2 MG/ML 1 ML VIAL IV PRN (16:15)
[2018-01-02 17:30] VITALS: BP 137/102; PULSE 105; TEMP 36.4; O2SAT 98
[2018-01-02] MEDS: HEPARIN 25,000 UNIT/500ML D5W 500 ML IV SCH (17:30)
[2018-01-02 18:53] VITALS: O2SAT 98; Ht 182.9 cm; Wt 90.2 kg
--- NOTE | 2018-01-02 19:20 | EMERGENCY ROOM VISIT NOTE ---
History Report prepared by Contreras: Gavino Wilder Under the Supervision of: Dr. Nelson Kearns M.D. First contact with patient: 13:37 Chief Complaint: CHEST PAIN Stated Complaint: CHEST PAIN History of Present Illness The patient is a 62 year old male who presents to the Emergency Room with complaints of constant heart palpitations beginning two days ago. He woke up with his symptoms two days ago. The patient states that he was drinking a lot of alcohol three days ago. He estimates that he had a little over a half bottle of whiskey. He does not normally drink that much. The patient adds that he felt generalized weakness as well as his chest palpitations upon waking up two days ago. He states that he waited to come to the ED until today "just because I am stupid". The patient also complains of intermittent upper back pain, and mild chest pain. He occasionally feels upper abdominal pain with coughing. He denies any known fevers, or black or bloody stool. The patient has a history of previous stroke (seven years ago). He is on aspirin, but denies any other blood thinning medications. He is former smoker. Source of History: patient Onset: Two days ago Position: chest Quality: other (palpitations) Timing: constant Associated Symptoms: + chest pain (mild), + abdominal pain (upper, occasionally with coughing), + back pain (intermittent upper), + weakness ( generalized), No fevers, No melena, No hematochezia Review of Systems See HPI for pertinent positives & negatives. A total of 10 systems reviewed and were otherwise negative. Past Medical & Surgical Medical Problems: (1) Allergic reaction (2) Heart palpitations (3) Hemorrhoids (4) HTN (hypertension) (5) Sciatica Family History Cancer Hypertension Social History Smoking Status: Current Every Day Smoker Marital Status: Housing Status: lives with family Occupation Status: unemployed Current/Historical Medications Scheduled Aspirin (Aspirin Ec), 162.5 MG PO HS Lisinopril (Prinivil), 10 MG PO QAM Ropinirole (Requip), 0.5 MG PO HS Scheduled PRN Lorazepam (Ativan), 0.5 MG PO HS PRN for . Allergies Coded Allergies: No Known Allergies (Verified , 01/02/18) Physical Exam Vital Signs Date Time Temp Pulse Resp B/P (MAP) Pulse Ox O2 Delivery O2 Flow Rate FiO2 01/02/18 17:30 36.4 105 18 137/102 (114) 98 Room Air 01/02/18 16:47 98 18 118/91 98 Room Air 01/02/18 15:24 113 18 113/80 97 Room Air 01/02/18 14:51 111 18 127/84 97 Room Air 01/02/18 14:44 98 Room Air 01/02/18 14:04 95 Room Air 01/02/18 14:01 122/81 01/02/18 13:56 126 14 95 01/02/18 13:55 98 Room Air 01/02/18 13:43 137 01/02/18 13:40 125/87 01/02/18 13:29 36.6 122 20 113/76 96 Room Air Physical Exam Constitutional: Vital signs reviewed. Eyes: Pupils are equal round reactive to light. Conjunctiva are noninjected. ENT: Pharynx is clear without erythema or exudate. Mucous membranes are dry. Neck supple without meningeal signs. Respiratory: Clear to auscultation bilaterally. Breath sounds are equal bilaterally. Cardiovascular: Tachycardic rate with an irregularly irregular rhythm. Heart rate 170 GI: Soft, nondistended and nontender. Bowel sounds are present. Musculoskeletal: No peripheral edema. No lower extremity tenderness. Integumentary: No cyanosis. Neurological: The patient is awake and alert. No focal deficits. Psychiatric: Normal affect. Medical Decision & Procedures ER Provider Diagnostic Interpretation: Radiology results as stated below per my review and the radiologist's interpretation: SINGLE VIEW CHEST FINDINGS: An AP, portable, upright chest radiograph is compared to study dated 10/22/2017. The examination is degraded by portable technique and patient rotation. The cardiomediastinal silhouette is unremarkable. A calcified granuloma is noted at the right lung base. The lungs and pleural spaces are otherwise clear. No pneumothorax is seen. The bony thorax is grossly intact. IMPRESSION: No active disease in the chest. Electronically signed by: Thomas Jean Baptiste M.D. 01/02/2018 2:00 PM Laboratory Results 01/02/18 14:00 Red Blood Count 5.13, Mean Corpuscular Volume 89.5, Mean Corpuscular Hemoglobin 31.8, Mean Corpuscular Hemoglobin Concent 35.5, Mean Platelet Volume 11.0, Neutrophils (%) (Auto) 73.4, Lymphocytes (%) (Auto) 15.6, Monocytes (%) (Auto) 9.6, Eosinophils (%) (Auto) 0.9, Basophils (%) (Auto) 0.3, Neutrophils # (Auto) 8.54, Lymphocytes # (Auto) 1.81, Monocytes # (Auto) 1.12, Eosinophils # (Auto) 0.11, Basophils # (Auto) 0.03 01/02/18 14:00 Test 01/02/18 13:59 01/02/18 14:00 Bedside Troponin I < 0.030 ng/ml (0-0.045) White Blood Count 11.63 K/uL (4.8-10.8) Red Blood Count 5.13 M/uL (4.7-6.1) Hemoglobin 16.3 g/dL (14.0-18.0) Hematocrit 45.9 % (42-52) Mean Corpuscular Volume 89.5 fL (80-100) Mean Corpuscular Hemoglobin 31.8 pg (25-34) Mean Corpuscular Hemoglobin Concent 35.5 g/dl (32-36) Platelet Count 254 K/uL (130-400) Mean Platelet Volume 11.0 fL (7.4-10.4) Neutrophils (%) (Auto) 73.4 % Lymphocytes (%) (Auto) 15.6 % Monocytes (%) (Auto) 9.6 % Eosinophils (%) (Auto) 0.9 % Basophils (%) (Auto) 0.3 % Neutrophils # (Auto) 8.54 K/uL (1.4-6.5) Lymphocytes # (Auto) 1.81 K/uL (1.2-3.4) Monocytes # (Auto) 1.12 K/uL (0.11-0.59) Eosinophils # (Auto) 0.11 K/uL (0-0.5) Basophils # (Auto) 0.03 K/uL (0-0.2) RDW Standard Deviation 43.6 fL (36.4-46.3) RDW Coefficient of Variation 13.3 % (11.5-14.5) Immature Granulocyte % (Auto) 0.2 % Immature Granulocyte # (Auto) 0.02 K/uL (0.00-0.02) Prothrombin Time 10.2 SECONDS (9.0-12.0) Prothromb Time International Ratio 1.0 (0.9-1.1) Activated Partial Thromboplast Time 24.2 SECONDS (21.0-31.0) Partial Thromboplastin Ratio 0.9 Anion Gap 9.0 mmol/L (3-11) Est Creatinine Clear Calc Drug Dose 78.1 ml/min Estimated GFR () 84.5 Estimated GFR (Non- 72.9 BUN/Creatinine Ratio 13.9 (10-20) Calcium Level 9.1 mg/dl (8.5-10.1) Phosphorus Level 3.1 mg/dl (2.5-4.9) Magnesium Level 2.4 mg/dl (1.8-2.4) Thyroid Stimulating Hormone (TSH) 0.604 uIu/ml (0.300-4.500) Laboratory results as reviewed by me. Medications Administered Medications (Trade) Dose Ordered Sig/Khoa Route Start Time Stop Time Status Last Admin Dose Admin Diltiazem HCl (Cardizem Inj) 10 mg NOW STAT IV 01/02/18 13:46 01/02/18 13:49 DC 01/02/18 14:00 10 MG Sodium Chloride 500 ml @ 999 mls/hr Q31M STAT IV 01/02/18 13:46 01/02/18 14:16 DC 01/02/18 14:02 999 MLS/HR Diltiazem HCl 125 mg/Dextrose 125 ml @ 0 mls/hr Q0M PRN IV 01/02/18 14:00 02/01/18 13:59 01/02/18 14:15 10 MLS/HR Multivitamins 10 ml/Thiamine HCl 100 mg/Folic Acid 1 mg/Sodium Chloride 1,011.2 ml @ 500 mls/ hr Q2H2M ONCE IV 01/02/18 14:30 01/02/18 16:31 DC 01/02/18 15:46 500 MLS/HR Heparin Sodium/ Dextrose (Heparin 25,000 Unit/500ml D5W) 25,000 unit STK-MED ONCE .ROUTE 01/02/18 14:37 01/02/18 14:38 DC 01/02/18 14:43 25,000 UNIT Heparin Sodium (Porcine) (Heparin Iv Bolus) 10,000 unit STK-MED ONCE .ROUTE 01/02/18 14:37 01/02/18 14:38 DC 01/02/18 14:42 5,000 UNIT ECG Per My Interpretation Indication: palpitations Rate (beats per minute): 132 Rhythm: atrial fibrillation (with RVR) Findings: other (QRS of 76 ms. [place] is 47. ) ED Course 1338: The patient was evaluated in room A10. A complete history and physical exam was performed. 1346: Ordered Sodium Chloride 500 ml @ 999 mls/hr IV, Cardizem Inj 10 mg IV, Cardizem Bolus/Drip IV. 1416: I reassessed the patient. His heart rate is in the 90's. He feels better. He notes that he typically drinks 3-4 drinks of whiskey a day. 1430: Ordered Multivitamins 10 mL/Thiamine HCl 100 mg/Folic Acid 1 mg/Sodium Chloride 1011.2 ml @ 500 mls/hr IV. 1440: Upon reevaluation, the patient appeared to have improvement of his symptoms. I discussed tonight's findings with him. He verbalized agreement of the treatment plan. The patient will be evaluated for further management. Medical Decision This is a 62-year-old male who presents with weakness and palpitations after drinking alcohol. Differential diagnosis includes holiday heart, atrial fibrillation with RVR, dehydration, AKA, electrolyte abnormality. I did perform a limited focused review of portions of the patient's old chart on the electronic medical record. The patient has had no recent pertinent visits to this hospital. I did evaluate the patient as noted above. IV access was established. The patient was placed on a continuous mill controller. I did order and personally review the patient's 12-lead EKG and chest x-ray as described above. The patient has atrial fibrillation with RVR. I did treat him with Cardizem IV. He was also started on a Cardizem drip. His heart rate went down to the 90s. I did discuss risks and benefits of heparinization with him. He did agree to anticoagulation with heparin. I did start him on a heparin drip. He is also given a 5000 unit bolus. The patient was also given a bolus of normal saline IV as well as a banana bag IV. I did order and review the patient's blood work as noted in the electronic medical record. I did discuss the test results with the patient. On reassessment he is feeling much better. I did recommend hospitalization for further evaluation. I did discuss the case with the hospitalist and case finishing machine adjuster. Medication Reconcilliation Current Medication List: was personally reviewed by me Blood Pressure Screening Patient's blood pressure: Normal blood pressure Blood pressure disposition: Did not require urgent referral Consults Time Called: 1435 Consulting Physician: Messi GATICA Hospitalist Returned Call: [phone] I spoke with Messi MARTINEZ. We discussed the patient and his results. The patient will be further evaluated by EN. Impression Primary Impression: Atrial fibrillation with RVR Additional Impressions: Thoracic back pain Dehydration Critical Care I have personally spent 35 minutes of critical care time in the direct management of this patient. This includes bedside care, interpretation of diagnostic studies, and testing, discussion with consultants, patient, and family members, and other required patient management activities. This 35 minutes is in excess of all separately billable procedures. Scribe Attestation The scribe's documentation has been prepared under my direct and personally reviewed by me in its entirety. I confirm that the note above accurately reflects all work, treatment, procedures, and medical decision making performed by me. Departure Information Dispostion Being Evaluated By Hospitalist Referrals No Doctor, Assigned (PCP) Patient Instructions My [facility] Problem Qualifiers Additional Impressions: Thoracic back pain Chronicity: unspecified Back pain laterality: midline Qualified Codes: M54.6 - Pain in thoracic spine
[2018-01-02 19:28] VITALS: BP 133/77; PULSE 97; TEMP 36.5; O2SAT 96
[2018-01-02] MEDS: ROPINIROLE HCL 1 MG TAB PO SCH (20:20)
[2018-01-02] MEDS ORDERED: ASPIRIN 325 MG ECTAB PO SCH (21:00)
[2018-01-02 22:29] LABS: PTT PATIENT 46.2 SECONDS (21.0-31.0)
[2018-01-02] MEDS ORDERED: HEPARIN IV BOLUS 3,000 UNIT in SYRINGE 0 ML IV ONE (22:45)
[2018-01-03] VITALS (11 sets, daily range): BP systolic 98–130; BP diastolic 67–82; PULSE 72–81; TEMP 36.4–36.8; O2SAT 96–98
[2018-01-03 04:52] LABS: BASO % 0.2 %; BASO ABS # 0.02 K/uL (0-0.2); EOS % 1.8 %; EOS ABS # 0.17 K/uL (0-0.5); HEMATOCRIT 41.2 % (42-52); HEMOGLOBIN 14.5 g/dL (14.0-18.0); IG# 0.02 K/uL (0.00-0.02); LYMPH % 27.5 %; LYMPH ABS # 2.62 K/uL (1.2-3.4); MEAN CELL VOLUME 89.4 fL (80-100); MEAN CORPUSCULAR HEMOGLOBIN 31.5 pg (25-34); MEAN CORPUSCULAR HGB CONC 35.2 g/dl (32-36); MEAN PLATELET VOLUME 10.4 fL (7.4-10.4); MONO % 9.1 %; MONO ABS # 0.87 K/uL (0.11-0.59); NEUT % 61.2 %; NEUT ABS # 5.81 K/uL (1.4-6.5); PLATELET COUNT 213 K/uL (130-400); RED CELL DISTRIBUTION WIDTH CV 13.3 % (11.5-14.5); RED CELL DISTRIBUTION WIDTH SD 43.8 fL (36.4-46.3); WHITE BLOOD COUNT 9.51 K/uL (4.8-10.8)
[2018-01-03 05:15] LABS: PTT PATIENT 77.7 SECONDS (21.0-31.0)
[2018-01-03 05:25] LABS: CALCIUM 8.3 mg/dl (8.5-10.1); CREATININE 0.95 mg/dl (0.60-1.40); POTASSIUM 3.6 mmol/L (3.5-5.1)
[2018-01-03] MEDS: PANTOprazole SOD 40 MG TAB PO SCH (07:44)
[2018-01-03] MEDS: MULTI-VITAMIN INFUSION INJ 10 ML, THIAMINE HCL INJ 100 MG, FoLIC ACID INJ 1 MG in SODIU... IV SCH (07:46)
[2018-01-03] MEDS: HEPARIN 25,000 UNIT/500ML D5W 500 ML IV SCH (08:55)
[2018-01-03] MEDS ORDERED: LISINOPRIL 10 MG TAB PO SCH (09:00)
--- NOTE | 2018-01-03 10:00 | Cardiology Consultation ---
Cardiology Consultation Date of Consultation: Jan 03, 2018. Requesting Physician: Dr. 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 He has been monitoring his heart rate and blood pressure and notes that for the most part it is normal, however after having a watery green party 3 days prior to admission he noticed the next morning that his heart was beating rapidly and irregularly. When it did not resolve he presented on January 02, 2018 in atrial fibrillation with a rapid ventricular response. He did not have lightheadedness or dizziness or chest discomfort. He had no strokelike symptoms (he does have residual right-sided weakness from his prior stroke but is very ambulatory). He was admitted to the hospital, started on intravenous diltiazem and intravenous heparin. His heart rate is reasonably well controlled on his current dose and his blood pressure is borderline. He remains on his lisinopril (which was his outpatient medication for blood pressure control). He feels well and does not have any lightheadedness, dizziness but he does have a sensation of the irregular heart rate. Past Medical/Surgical History (1) HTN (hypertension) (2) Sciatica Left hemispheric CVA Family History Cancer Hypertension Social History Smoking Status: Current Every Day Smoker History of Alcohol Use: Yes (4 whiskey /daily) Review of Systems Constitutional: No fever, No weight loss, No weakness Respiratory: No cough, No wheezing, No shortness of breath, No dyspnea on exertion Cardiac: + see HPI, + palpitations, No chest pain, No orthopnea, No PND, No edema Abdomen: No pain, No nausea, No vomiting, No diarrhea, No GI bleeding Male : No urinary frequency, No nocturia more than once/night, No slowing stream, No sexual dysfunction Neurologic: + see HPI, + weakness (Right sided), No paralysis, No numbness/ tingling, No balance problems Heme: No abnormal bleeding/bruising, No clotting problems Endo: No fatigue Skin: No problem reported All Other Systems: Reviewed and Negative Allergies Coded Allergies: No Known Allergies (Verified , 01/02/18) Medications Current Inpatient Medications Medications (Trade) Dose Ordered Sig/Khoa Route Start Time Stop Time Status Last Admin Dose Admin Diltiazem HCl 125 mg/Dextrose 125 ml @ 0 mls/hr Q0M PRN IV 01/02/18 14:00 02/01/18 13:59 01/02/18 23:10 15 MLS/HR Aspirin (Ecotrin Tab) 162.5 mg HS PO 01/02/18 21:00 02/01/18 20:59 01/02/18 20:20 162.5 MG Lisinopril (Zestril Tab) 10 mg QAM PO 01/03/18 09:00 02/02/18 08:59 Lorazepam (Ativan Tab) 0.5 mg HS PRN PO 01/02/18 15:45 02/01/18 15:44 Ropinirole HCl (Requip Tab) 0.5 mg HS PO 01/02/18 21:00 02/01/18 20:59 01/02/18 20:20 0.5 MG Multivitamins 10 ml/Thiamine HCl 100 mg/Folic Acid 1 mg/Sodium Chloride 1,011.2 ml @ 100 mls/ hr DAILY IV 01/03/18 09:00 02/02/18 08:59 01/03/18 07:46 100 MLS/HR Acetaminophen (Tylenol Tab) 650 mg Q4H PRN PO 01/02/18 16:00 02/01/18 15:59 01/03/18 07:43 650 MG Al Hydrox/Mg Hydrox/Simethicone (Maalox Max Susp) 15 ml Q4H PRN PO 01/02/18 16:00 02/01/18 15:59 Magnesium Hydroxide (Milk Of Magnesia Susp) 30 ml Q12H PRN PO 01/02/18 16:00 02/01/18 15:59 Ondansetron HCl (Zofran Inj) 4 mg Q6H PRN IV 01/02/18 16:00 02/01/18 15:59 Polyethylene (Miralax Powder Packet) 17 gm DAILY PRN PO 01/02/18 16:00 02/01/18 15:59 Lorazepam (Ativan Inj) 1 mg Q2H PRN IV 01/02/18 16:15 02/01/18 16:14 01/02/18 22:42 1 MG Pantoprazole Sodium (Protonix Tab) 40 mg QAM PO 01/03/18 09:00 01/07/18 08:59 01/03/18 07:44 40 MG Heparin Sodium/ Dextrose 500 ml @ 28 mls/hr [id number] IV 01/02/18 17:30 02/01/18 17:29 01/03/18 08:55 28 MLS/HR Physical Exam Vital Signs Past 12 Hours Date Time Temp Pulse Resp B/P (MAP) Pulse Ox O2 Delivery O2 Flow Rate FiO2 01/03/18 08:00 97 Room Air 01/03/18 07:15 36.5 80 18 98/67 (77) 97 Room Air 01/03/18 04:00 97 Room Air 01/03/18 03:51 36.6 78 17 106/71 (83) 97 Room Air 01/03/18 01:20 80 102/68 (79) 01/03/18 00:01 36.5 79 18 107/68 (81) 97 Room Air 01/03/18 00:01 97 Room Air Constitutional: General Apperance: heathly-appearing Level of Distress: NAD Psychiatric: Mental Status: active & alert Head: normocephalic Eyes: EOM: EOMI ENMT: normal ENT inspection, hearing grossly normal Neck: supple, no masses Lungs: Respiratory effort: no dyspnea, good air movement Auscultation: breath sounds normal, no wheezing Cardiovascular: Heart Auscultation: no murmurs, no rubs, no gallops, irregular rate rhythm Peripheral Pulses: Bruits: none appreciated Abdomen: Bowel Sounds: normal Inspection & Palpation: soft, no tenderness, guarding & rebound, no masses Musculoskeletal: abnormal strength (Right arm and right leg, normal on the left ) Extremities: no edema Neurologic: Cranial Nerves: grossly intact Sensation: grossly intact Data Laboratory Results: Last 24 Hours Test 01/02/18 13:59 01/02/18 14:00 01/02/18 21:37 01/03/18 04:44 Bedside Troponin I < 0.030 ng/ml White Blood Count 11.63 K/uL 9.51 K/uL Red Blood Count 5.13 M/uL 4.61 M/uL Hemoglobin 16.3 g/dL 14.5 g/dL Hematocrit 45.9 % 41.2 % Mean Corpuscular Volume 89.5 fL 89.4 fL Mean Corpuscular Hemoglobin 31.8 pg 31.5 pg Mean Corpuscular Hemoglobin Concent 35.5 g/dl 35.2 g/dl Platelet Count 254 K/uL 213 K/uL Mean Platelet Volume 11.0 fL 10.4 fL Neutrophils (%) (Auto) 73.4 % 61.2 % Lymphocytes (%) (Auto) 15.6 % 27.5 % Monocytes (%) (Auto) 9.6 % 9.1 % Eosinophils (%) (Auto) 0.9 % 1.8 % Basophils (%) (Auto) 0.3 % 0.2 % Neutrophils # (Auto) 8.54 K/uL 5.81 K/uL Lymphocytes # (Auto) 1.81 K/uL 2.62 K/uL Monocytes # (Auto) 1.12 K/uL 0.87 K/uL Eosinophils # (Auto) 0.11 K/uL 0.17 K/uL Basophils # (Auto) 0.03 K/uL 0.02 K/uL RDW Standard Deviation 43.6 fL 43.8 fL RDW Coefficient of Variation 13.3 % 13.3 % Immature Granulocyte % (Auto) 0.2 % 0.2 % Immature Granulocyte # (Auto) 0.02 K/uL 0.02 K/uL Prothrombin Time 10.2 SECONDS Prothromb Time International Ratio 1.0 Activated Partial Thromboplast Time 24.2 SECONDS 46.2 SECONDS 77.7 SECONDS Partial Thromboplastin Ratio 0.9 1.8 3.0 Sodium Level 141 mmol/L 140 mmol/L Potassium Level 3.9 mmol/L 3.6 mmol/L Chloride Level 109 mmol/L 109 mmol/L Carbon Dioxide Level 23 mmol/L 23 mmol/L Anion Gap 9.0 mmol/L 8.0 mmol/L Blood Urea Nitrogen 15 mg/dl 11 mg/dl Creatinine 1.09 mg/dl 0.95 mg/dl Est Creatinine Clear Calc Drug Dose 78.1 ml/min 97.7 ml/min Estimated GFR () 84.5 99.7 Estimated GFR (Non- 72.9 86.1 BUN/Creatinine Ratio 13.9 11.5 Random Glucose 124 mg/dl 109 mg/dl Calcium Level 9.1 mg/dl 8.3 mg/dl Phosphorus Level 3.1 mg/dl Magnesium Level 2.4 mg/dl Thyroid Stimulating Hormone (TSH) 0.604 uIu/ml Troponin I < 0.015 ng/ml Hepatitis C Antibody Screen NEG Imaging: Chest x-ray on admission with no acute disease EKG: On admission atrial fibrillation with a heart rate of 132 bpm, no acute changes Telemetry reviewed: Atrial fibrillation since admission, initially with a rapid heart rate and now at rest a well-controlled heart rate Assessment & Plan 1. Atrial fibrillation: Although this is the first episode of documented atrial fibrillation it is likely that this was a cause of his stroke 7 years ago. He may have it in the interim, although he is unaware of it and he does follow his heart rate and blood pressure with some frequency and he is also aware of the sensation and does not recall having it in the past. He could have brief episodes or perhaps he only has rare episodes. In any case with his history and his presentation now I would maintain anticoagulation over the long run and treat him with rate control. I would not consider cardioversion currently (either with antiarrhythmics or electrically) as he would be at high risk of stroke since he was in this for several days prior to presentation and this may well have been the cause of his prior stroke. If he converts on his own there is little we can do about that but I would not encourage the conversion. I would anticoagulate him for about a month and then plan cardioversion unless he converts on his own, which is likely. Agree with an echocardiogram which is pending. I am going to start him on oral diltiazem now and discontinue his lisinopril, we may be able to handle his arrhythmia and his hypertension with one medication. 2. Prior stroke: His prior stroke was cryptogenic, and I think it is likely it was due to atrial fibrillation although we cannot prove that. That makes it more compelling to continue chronic anticoagulation over the long run. 3. Hypertension: He has a history of hypertension which is managed on lisinopril alone. That will not afford any rate control, therefore I am going to discontinue it and we may be able to maintain blood pressure control just with diltiazem. His pressures a little bit low currently so that is likely. We can always restart it if his blood pressure comes up on the diltiazem but he will need some degree of rate control. Thank you for allowing me to participate in his care.
--- NOTE | 2018-01-03 10:07 | Hospitalist Progress Note ---
Hospitalist Progress Note Date of Service Jan 03, 2018. (Yanira Mayorga PA-C) Subjective Pt evaluation today including: conversation w/ patient, physical exam, chart review, lab review, review of studies, conversation w/ network systems consultant (Dr. Hernandez) , review of inpatient medication list Patient seen and evaluated. No acute events overnight. Remains in A Fib largely with rate control but intermittent elevated HRs in the 140s Patient states he feels better compared to when he presented but has a headache and some mild dizziness mostly with ambulating Patient appears calm and mentating appropriately. No tremors noted. Intermittent nausea but currently no complaints of this. No diarrhea Constitutional: + weakness (generalized), + problem reported (headache), No fever, No chills Eyes: No worsening of vision ENT: No nasal symptoms Respiratory: No cough, No shortness of breath Cardiovascular: + palpitations (intermittent - mostly with ambulating), No chest pain Abdomen: + nausea (intermittent ), No pain, No vomiting, No diarrhea Musculoskeletal: No swelling, No calf pain Male : No dysuria Psychiatric: No anxiety Heme: No abnormal bleeding/bruising (Yanira Mayorga, MICHAELC) Medications Current Inpatient Medications Medications (Trade) Dose Ordered Sig/Khoa Route Start Time Stop Time Status Last Admin Dose Admin Diltiazem HCl 125 mg/Dextrose 125 ml @ 0 mls/hr Q0M PRN IV 01/02/18 14:00 02/01/18 13:59 01/02/18 23:10 15 MLS/HR Aspirin (Ecotrin Tab) 162.5 mg HS PO 01/02/18 21:00 02/01/18 20:59 01/02/18 20:20 162.5 MG Lisinopril (Zestril Tab) 10 mg QAM PO 01/03/18 09:00 02/02/18 08:59 Lorazepam (Ativan Tab) 0.5 mg HS PRN PO 01/02/18 15:45 02/01/18 15:44 Ropinirole HCl (Requip Tab) 0.5 mg HS PO 01/02/18 21:00 02/01/18 20:59 01/02/18 20:20 0.5 MG Multivitamins 10 ml/Thiamine HCl 100 mg/Folic Acid 1 mg/Sodium Chloride 1,011.2 ml @ 100 mls/ hr DAILY IV 4/3/18 09:00 02/02/18 08:59 01/03/18 07:46 100 MLS/HR Acetaminophen (Tylenol Tab) 650 mg Q4H PRN PO 01/02/18 16:00 02/01/18 15:59 01/03/18 07:43 650 MG Al Hydrox/Mg Hydrox/Simethicone (Maalox Max Susp) 15 ml Q4H PRN PO 01/02/18 16:00 02/01/18 15:59 Magnesium Hydroxide (Milk Of Magnesia Susp) 30 ml Q12H PRN PO 01/02/18 16:00 02/01/18 15:59 Ondansetron HCl (Zofran Inj) 4 mg Q6H PRN IV 01/02/18 16:00 02/01/18 15:59 Polyethylene (Miralax Powder Packet) 17 gm DAILY PRN PO 01/02/18 16:00 02/01/18 15:59 Lorazepam (Ativan Inj) 1 mg Q2H PRN IV 01/02/18 16:15 02/01/18 16:14 01/02/18 22:42 1 MG Pantoprazole Sodium (Protonix Tab) 40 mg QAM PO 01/03/18 09:00 01/07/18 08:59 01/03/18 07:44 40 MG Heparin Sodium/ Dextrose 500 ml @ 28 mls/hr [id number] IV 01/02/18 17:30 02/01/18 17:29 01/03/18 08:55 28 MLS/HR (Yanira Mayorga, PA-C) Objective Vital Signs Date Time Temp Pulse Resp B/P (MAP) Pulse Ox O2 Delivery O2 Flow Rate FiO2 01/03/18 08:00 97 Room Air 01/03/18 07:15 36.5 80 18 98/67 (77) 97 Room Air 01/03/18 04:00 97 Room Air 01/03/18 03:51 36.6 78 17 106/71 (83) 97 Room Air 01/03/18 01:20 80 102/68 (79) 01/03/18 00:01 36.5 79 18 107/68 (81) 97 Room Air 01/03/18 00:01 97 Room Air 01/02/18 20:00 Room Air 01/02/18 19:28 36.5 97 18 133/77 (95) 96 Room Air 01/02/18 18:53 98 Room Air 01/02/18 17:30 36.4 105 18 137/102 (114) 98 Room Air 01/02/18 16:47 98 18 118/91 98 Room Air 01/02/18 15:24 113 18 113/80 97 Room Air 01/02/18 14:51 111 18 127/84 97 Room Air 01/02/18 14:44 98 Room Air 01/02/18 14:04 95 Room Air 01/02/18 14:01 122/81 01/02/18 13:56 126 14 95 01/02/18 13:55 98 Room Air 01/02/18 13:43 137 01/02/18 13:40 125/87 01/02/18 13:29 36.6 122 20 113/76 96 Room Air (Yanira Mayorga PA-C) Physical Exam General Appearance: WD/WN, no apparent distress Eyes: sclerae normal ENT: hearing grossly normal Neck: supple, no JVD, trachea midline Respiratory/Chest: lungs clear, normal breath sounds, no respiratory distress, no accessory muscle use Cardiovascular: no gallop, no murmur, + irregularly irregular Abdomen: normal bowel sounds, non tender, soft Extremities: no pedal edema, no calf tenderness Neurologic/Psychiatric: alert, normal mood/affect, + pertinent finding (no tremor noted) Skin: normal color, warm/dry (Yanira Mayorga, PATRIA-C) Laboratory Results Last 24 Hours Test 01/02/18 13:59 01/02/18 14:00 01/02/18 21:37 01/03/18 04:44 Bedside Troponin I < 0.030 ng/ml White Blood Count 11.63 K/uL 9.51 K/uL Red Blood Count 5.13 M/uL 4.61 M/uL Hemoglobin 16.3 g/dL 14.5 g/dL Hematocrit 45.9 % 41.2 % Mean Corpuscular Volume 89.5 fL 89.4 fL Mean Corpuscular Hemoglobin 31.8 pg 31.5 pg Mean Corpuscular Hemoglobin Concent 35.5 g/dl 35.2 g/dl Platelet Count 254 K/uL 213 K/uL Mean Platelet Volume 11.0 fL 10.4 fL Neutrophils (%) (Auto) 73.4 % 61.2 % Lymphocytes (%) (Auto) 15.6 % 27.5 % Monocytes (%) (Auto) 9.6 % 9.1 % Eosinophils (%) (Auto) 0.9 % 1.8 % Basophils (%) (Auto) 0.3 % 0.2 % Neutrophils # (Auto) 8.54 K/uL 5.81 K/uL Lymphocytes # (Auto) 1.81 K/uL 2.62 K/uL Monocytes # (Auto) 1.12 K/uL 0.87 K/uL Eosinophils # (Auto) 0.11 K/uL 0.17 K/uL Basophils # (Auto) 0.03 K/uL 0.02 K/uL RDW Standard Deviation 43.6 fL 43.8 fL RDW Coefficient of Variation 13.3 % 13.3 % Immature Granulocyte % (Auto) 0.2 % 0.2 % Immature Granulocyte # (Auto) 0.02 K/uL 0.02 K/uL Prothrombin Time 10.2 SECONDS Prothromb Time International Ratio 1.0 Activated Partial Thromboplast Time 24.2 SECONDS 46.2 SECONDS 77.7 SECONDS Partial Thromboplastin Ratio 0.9 1.8 3.0 Sodium Level 141 mmol/L 140 mmol/L Potassium Level 3.9 mmol/L 3.6 mmol/L Chloride Level 109 mmol/L 109 mmol/L Carbon Dioxide Level 23 mmol/L 23 mmol/L Anion Gap 9.0 mmol/L 8.0 mmol/L Blood Urea Nitrogen 15 mg/dl 11 mg/dl Creatinine 1.09 mg/dl 0.95 mg/dl Est Creatinine Clear Calc Drug Dose 78.1 ml/min 97.7 ml/min Estimated GFR () 84.5 99.7 Estimated GFR (Non- 72.9 86.1 BUN/Creatinine Ratio 13.9 11.5 Random Glucose 124 mg/dl 109 mg/dl Calcium Level 9.1 mg/dl 8.3 mg/dl Phosphorus Level 3.1 mg/dl Magnesium Level 2.4 mg/dl Thyroid Stimulating Hormone (TSH) 0.604 uIu/ml Troponin I < 0.015 ng/ml Hepatitis C Antibody Screen NEG (Yanira Mayorga, MICHAELC) Assessment and Plan 62 year old gentleman with complaints of palpitations, chest pain, light headedness, some shortness of breath and weakness.Found to be in Afib with RVR in ED. Given cardizem bolus and now on cardizem gtt. New Onset Atrial Fibrillation with RVR: Mostly Rate Controlled - Patient reports chronic history of feelings of palpitations but has never been officially Dx with A Fib; States he used to smoke and that is when he had more palpitations but quit after his CVA approx. 7 years ago - Stop Diltiazem gtt and implement Diltiazem 240 mg daily; Hold Lisinopril given low normal BPs and likely will be D/Cd altogether - Continue heparin gtt and will assess cost of NOAC (as long as no valvular issues on echo) given avoidance of Coumadin due to daily ETOH consumption - Echo - pending - Cardiology following - discussed with Dr. Hernandez and plan is as above ETOH Abuse: Possible Mild Withdrawal Symptoms - Reporting drinking 3-4 drinks daily with intermittent binges; patient appears calm and appropriate mentation, some intermittent nausea, some dizziness (but may be A Fib), no tremors noted - Continue daily banana bag; AWSS protocol with PRN Ativan HTN: - Hold Lisinopril and start Diltiazem H/O CVA with R Residual: - Patient mostly resolved but some residual on R side compared to L - ASA 162.5 mg daily RLS: STABLE - Requip 0.5 mg HS DVT Prophylaxis: Heparin gtt Disposition: - Will assess [facility] - Will keep hospitalized given low BPs and assess tolerance of Diltiazem and given still symptomatic - Possible D/C tomorrow Continued [facility] stay due to: multiple IV medications needed Discharge planning: home (Yanira Mayorga, PA-C) PA Physician Supervision Note: I interviewed and examined the patient. Discussed with Yanira Mayorga PAC and agree with findings and plan as documented in the note. Any exceptions or clarifications are listed here: None This pt did convert to NSR, we did have a lively conversation on how his drinking maybe impacting his afib and the need for some anticoagulation for a period of time while an outpt monitor confirms or refutes if this is a one time thing or PAF 36.5 80 18 98/67 Car is regular without murmur lungs are clear Afib maybe related to alcohol excess. continue anticoagulation and rate control strongly consider home monitoring and cardiology follow up Documented By: Nelson Jerez (Nelson Jerez M.D.)
[2018-01-03] MEDS ORDERED: DILTIAZEM HCL 240 MG CAPCR PO ONE (10:15)
[2018-01-03 11:59] LABS: PTT PATIENT 57.6 SECONDS (21.0-31.0)
[2018-01-03] MEDS ORDERED: PERFLUTREN LIPID MICROSPHERE (DEFINITY) IV ONE (13:48)
--- NOTE | 2018-01-03 15:27 | ECHOCARDIOGRAM REPORT ---
*NOTICE TO RECEIVING [employer] This information is strictly Confidential and protected under [place] law. [place] law prohibits you from making any further disclosure of this information unless further disclosure is expressly permitted by the written consent of the person to whom it pertains or is authorized by law. A general authorization for the release of medical or other information is not sufficient for this purpose. Hospital accepts no responsibility if the information is made available to any other person, INCLUDING THE PATIENT. Interpretation Summary * Name: JUSTINA MYERS Study Date: 01/03/2018 01:03 PM BP: 103/71 mmHg * Patient Location: C.2T\S\S229\S\2 HR: 78 * : 1955 (M/d/yyyy) Gender: Male Height: 72 in * Age: 62 yrs Ethnicity: [place] Weight: 201 lb * Ordering Physician: Messi Peterson * Referring Physician: Self, Referred * Performed By: Shaneka Wilkes RDCS * * Reason For Study: A-fib * BSA: 2.1 m2 * -- Conclusions -- * Left ventricular systolic function is normal. * No regional wall motion abnormalities noted. * Ejection Fraction = 60-65%. * There is borderline concentric left ventricular hypertrophy. * There is mild mitral regurgitation. Procedure Details * A complete two-dimensional transthoracic echocardiogram was performed (2D, M-mode, Doppler and color flow Doppler). * A contrast injection of Definity was performed to improve assessment of LV function. * Contrast was injected into an intravenous site in the right arm. * One vial of Definity ultrasound contrast was diluted in normal saline to a total volume of 10 ml. A total of '2' ml of solution was administered during imaging. * Lot # [id number] of Definity utilized for procedure. * Expiration date JAN 19. * The attending nurse who injected the contrast agent was Valarie Saez RN. Left Ventricle * The left ventricle is normal in size. * There is borderline concentric left ventricular hypertrophy. * Ejection Fraction = 60-65%. * Left ventricular systolic function is normal. * No regional wall motion abnormalities noted. Right Ventricle * The right ventricle is grossly normal size. * The right ventricular systolic function is normal as assessed by tricuspid annular plane systolic excursion (TAPSE) (normal >1.5 cm). Atria * The left atrium is mildly dilated. * Right atrium not well visualized. * There is no evidence of atrial septal defect, but resolution does not allow assessment for a patent foramen ovale. Mitral Valve * The mitral valve anatomy is normal. * Mitral stenosis is absent. * There is mild mitral regurgitation. Tricuspid Valve * The tricuspid valve anatomy is normal. * Significant tricuspid regurgitation is absent. Aortic Valve * The aortic valve is normal in structure and function. * No hemodynamically significant valvular aortic stenosis. * No aortic regurgitation is present. Pulmonic Valve * The pulmonary valve is not well seen, but the Doppler examination is normal without significant regurgitation or stenosis. Great Vessels * Mild aortic root dilatation. * The pulmonary artery is not well visualized, but is probably normal size. Pericardium/Pleural * There is no pericardial effusion. Great Vessels * Normal inferior vena cava size and collapsability with sniff indicates a normal right atrial pressure of 3 mmHg MMode 2D Measurements and Calculations IVSd 0.96 cm LVIDd 4.7 cm LVIDs 3.3 cm LVPWd 1.1 cm IVS/LVPW 0.91 FS 29.8 % EDV(Teich) 103.6 ml ESV(Teich) 44.6 ml EF(Teich) 57.0 % EDV(cubed) 105.4 ml ESV(cubed) 36.4 ml EF(cubed) 65.5 % LV mass(C)d 166.6 grams LV mass(C)dI 78.0 grams/m\S\2 SV(Teich) 59.0 ml SI(Teich) 27.6 ml/m\S\2 SV(cubed) 69.0 ml SI(cubed) 32.3 ml/m\S\2 Ao root diam 3.3 cm Ao root area 8.4 cm\S\2 ACS 2.0 cm LA dimension 3.6 cm asc Aorta Diam 3.0 cm LA/Ao 1.1 LVOT diam 2.0 cm LVOT area 3.3 cm\S\2 LVAd ap4 28.7 cm\S\2 LVLd ap4 7.3 cm EDV(MOD-sp4) 89.9 ml EDV(sp4-el) 96.3 ml LVAs ap4 14.4 cm\S\2 LVLs ap4 5.8 cm ESV(MOD-sp4) 30.2 ml ESV(sp4-el) 30.4 ml EF(MOD-sp4) 66.4 % EF(sp4-el) 68.4 % LVAd ap2 34.4 cm\S\2 LVLd ap2 7.7 cm EDV(MOD-sp2) 126.9 ml EDV(sp2-el) 130.4 ml LVAs ap2 17.9 cm\S\2 LVLs ap2 6.1 cm ESV(MOD-sp2) 44.8 ml ESV(sp2-el) 44.5 ml EF(MOD-sp2) 64.7 % EF(sp2-el) 65.9 % LVLd %diff 5.5 % EDV(MOD-bp) 108.1 ml LVLs %diff 5.8 % ESV(MOD-bp) 37.8 ml EF(MOD-bp) 65.0 % SV(MOD-sp4) 59.7 ml SI(MOD-sp4) 28.0 ml/m\S\2 SV(MOD-sp2) 82.1 ml SI(MOD-sp2) 38.5 ml/m\S\2 SV(MOD-bp) 70.3 ml SI(MOD-bp) 32.9 ml/m\S\2 SV(sp4-el) 65.9 ml SI(sp4-el) 30.8 ml/m\S\2 SV(sp2-el) 85.9 ml SI(sp2-el) 40.3 ml/m\S\2 Doppler Measurements and Calculations MV E max kate 92.2 cm/sec MV dec time 0.21 sec Ao V2 max 150.9 cm/sec Ao max PG 9.1 mmHg Ao max PG (full) 6.0 mmHg PREM(V,A) 1.9 cm\S\2 PREM(V,D) 1.9 cm\S\2 LV V1 max PG 3.1 mmHg LV V1 max 87.8 cm/sec PA V2 max 114.0 cm/sec PA max PG 5.2 mmHg PA acc slope 1065.8 cm/sec\S\2 PA acc time 0.07 sec TR max kate 217.2 cm/sec PA pr(Accel) 48.9 mmHg
[2018-01-03] MEDS ORDERED: RIVAROXABAN 20 MG TAB PO ONE (15:30)
[2018-01-03] MEDS: ROPINIROLE HCL 1 MG TAB PO SCH (20:32)
[2018-01-03] MEDS ORDERED: ASPIRIN 81 MG ECTAB PO SCH (21:00)
[2018-01-04] MEDS ORDERED: FERROUS SULFATE 325 MG TAB PO PRN
[2018-01-04 00:01] VITALS: BP 108/71; PULSE 77; TEMP 36.3; O2SAT 97
[2018-01-04 03:16] VITALS: BP 114/74; PULSE 69; TEMP 36.6; O2SAT 96
[2018-01-04 04:00] VITALS: O2SAT 96
[2018-01-04 05:03] LABS: BASO % 0.5 %; BASO ABS # 0.03 K/uL (0-0.2); EOS % 2.5 %; EOS ABS # 0.15 K/uL (0-0.5); HEMATOCRIT 38.4 % (42-52); HEMOGLOBIN 13.4 g/dL (14.0-18.0); IG# 0.01 K/uL (0.00-0.02); LYMPH % 29.8 %; LYMPH ABS # 1.81 K/uL (1.2-3.4); MEAN CELL VOLUME 89.5 fL (80-100); MEAN CORPUSCULAR HEMOGLOBIN 31.2 pg (25-34); MEAN CORPUSCULAR HGB CONC 34.9 g/dl (32-36); MEAN PLATELET VOLUME 10.6 fL (7.4-10.4); MONO % 10.2 %; MONO ABS # 0.62 K/uL (0.11-0.59); NEUT % 56.8 %; NEUT ABS # 3.46 K/uL (1.4-6.5); PLATELET COUNT 207 K/uL (130-400); RED CELL DISTRIBUTION WIDTH CV 13.3 % (11.5-14.5); RED CELL DISTRIBUTION WIDTH SD 43.7 fL (36.4-46.3); WHITE BLOOD COUNT 6.08 K/uL (4.8-10.8)
[2018-01-04 05:33] LABS: CALCIUM 8.4 mg/dl (8.5-10.1); CREATININE 1.05 mg/dl (0.60-1.40); POTASSIUM 3.6 mmol/L (3.5-5.1)
[2018-01-04 07:24] VITALS: BP 119/77; PULSE 75; TEMP 36.3; O2SAT 98
[2018-01-04] MEDS: PANTOprazole SOD 40 MG TAB PO SCH (07:51)
[2018-01-04] MEDS: MULTI-VITAMIN INFUSION INJ 10 ML, THIAMINE HCL INJ 100 MG, FoLIC ACID INJ 1 MG in SODIU... IV SCH (07:53)
[2018-01-04] MEDS ORDERED: DILTIAZEM HCL 240 MG CAPCR PO SCH (09:00)
[2018-01-04] MEDS ORDERED: THM100 PO (11:10)
[2018-01-04] MEDS ORDERED: PRT40 PO (11:10)
[2018-01-04] MEDS ORDERED: FOLI1TAB8 PO (11:10)
[2018-01-04] MEDS ORDERED: DLTCD/240 PO (11:10)
[2018-01-04] MEDS ORDERED: XRL20 PO (11:10)
--- NOTE | 2018-01-04 11:18 | Discharge Instructions ---
Discharge Instructions Date of Service Jan 04, 2018. Admission Reason for Admission: Heart Palpitations Discharge Discharge Diagnosis / Problem: Atrial Fibrillation with Rapid Ventricular Response Discharge Goals Goal(s): Decrease discomfort, Improve function, Increase independence Activity Recommendations Activity Limitations: resume your previous activity . Instructions / Follow-Up Instructions / Follow-Up Atrial Fibrillation: - This is an irregular heart rhythm that causes the top of your heart to quiver or shake, however the bottom of your heart still pumps normally. - With atrial fibrillation blood can pool at the top of your heart because it is quivering and can produce blood clots that can increase your risk of stroke - You converted out of this rhythm on 01/03 and will need to monitor to see if you stay out of it. You may intermittently bounce back into it at times - You were started on medications to help control this rhythm and some changes were made to your previous medications ---- STOP LISINOPRIL FOR YOUR BLOOD PRESSURE ---- START DILTIAZEM 240 MG DAILY THIS WILL BE YOUR BLOOD PRESSURE MEDICATION AND YOUR ATRIAL FIBRILLATION/HEART RATE MEDICATION ---- START XARELTO 20 MG DAILY - THIS IS YOUR BLOOD THINNER - You have been started on a blood thinner during this admission. - While on a blood thinners you may bruise easily. If you have bleeding, apply firm pressure to the site for at least 5 minutes. If bleeding does not stop please seek help. - Will also set up to have a heart monitor sent to you to monitor for any rhythm changes. Will also set up for you to see a lasting room machine operator [facility] - Will also assist with a follow-up appointment with your [place] doctor. - Will start you on an acid reducing medication since you will be on aspirin and a blood thinner - a prescription was given but you can buy this over the counter as well. - Will also start a folic acid and thiamine supplementation. Current Hospital Diet Patient's current hospital diet: AHA Diet (Heart Healthy) Discharge Diet Recommended Diet: AHA Diet (Heart Healthy) Pending Studies Studies pending at discharge: no Medical Emergencies . Who to Call and When: Medical Emergencies: If at any time you feel your situation is an emergency, please call 911 immediately. . Non-Emergent Contact Non-Emergency issues call your: Primary Care Provider Call Non-Emergent contact if: you have a fever, your pain is concerning you, you have any medication questions . . "Provider Documentation" section prepared by Yanira Mayorga. .
--- NOTE | 2018-01-04 11:33 | Cardiology Follow-Up ---
Subjective Date of Service: Jan 04, 2018. Pt evaluation today including: conversation w/ patient, physical exam, lab review, review of studies, review of inpatient medication list History of Present Illness This is a very pleasant 62-year-old gentleman who has a history of hypertension and prior left hemispheric stroke on March 09, 2011, I believe his prior stroke was cryptogenic in that he did not have significant cerebrovascular disease (he did have carotid plaquing however) and he did not have identification of atrial fibrillation at the time. He has been monitoring his heart rate and blood pressure and notes that for the most part it is normal, however after having a watery alliance party 3 days prior to admission he noticed the next morning that his heart was beating rapidly and irregularly. When it did not resolve he presented on January 02, 2018 in atrial fibrillation with a rapid ventricular response. He did not have lightheadedness or dizziness or chest discomfort. He had no strokelike symptoms (he does have residual right-sided weakness from his prior stroke but is very ambulatory). He was admitted to the hospital, started on intravenous diltiazem and intravenous heparin. His heart rate was reasonably well-controlled on intravenous diltiazem therefore I switch that to oral and discontinue the lisinopril hoping to control his heart rate and blood pressure with 1 medication. He converted to sinus rhythm on the afternoon of January 03, 2018. He was immediately aware of the conversion. Today he feels well, he feels normal and has no complaints and no side effects on the medications. Social History Smoking Status: Current Every Day Smoker History of Alcohol Use: Yes (4 whiskey /daily) Review of Systems Respiratory: No cough, No shortness of breath Cardiac: + palpitations (intermittent - mostly with ambulating), No chest pain Objective Vital Signs Past 12 Hours Date Time Temp Pulse Resp B/P (MAP) Pulse Ox O2 Delivery O2 Flow Rate FiO2 01/04/18 08:00 Room Air 01/04/18 07:24 36.3 75 20 119/77 (91) 98 Room Air 01/04/18 04:00 96 Room Air 01/04/18 03:16 36.6 69 18 114/74 (87) 96 Room Air 01/04/18 00:01 36.3 77 18 108/71 (83) 97 Room Air 01/04/18 00:01 97 Room Air Last Recorded Weight-Kilograms: 90.200 Physical Exam Constitutional: General Apperance: heathly-appearing Level of Distress: NAD Lungs: Respiratory effort: no dyspnea, good air movement Auscultation: breath sounds normal, no wheezing Cardiovascular: Heart Auscultation: no murmurs, no rubs, no gallops, irregular rate rhythm Peripheral Pulses: Bruits: none appreciated Extremities: no edema Data Laboratory Results: Last 24 Hours Test 01/04/18 04:32 White Blood Count 6.08 K/uL Red Blood Count 4.29 M/uL Hemoglobin 13.4 g/dL Hematocrit 38.4 % Mean Corpuscular Volume 89.5 fL Mean Corpuscular Hemoglobin 31.2 pg Mean Corpuscular Hemoglobin Concent 34.9 g/dl Platelet Count 207 K/uL Mean Platelet Volume 10.6 fL Neutrophils (%) (Auto) 56.8 % Lymphocytes (%) (Auto) 29.8 % Monocytes (%) (Auto) 10.2 % Eosinophils (%) (Auto) 2.5 % Basophils (%) (Auto) 0.5 % Neutrophils # (Auto) 3.46 K/uL Lymphocytes # (Auto) 1.81 K/uL Monocytes # (Auto) 0.62 K/uL Eosinophils # (Auto) 0.15 K/uL Basophils # (Auto) 0.03 K/uL RDW Standard Deviation 43.7 fL RDW Coefficient of Variation 13.3 % Immature Granulocyte % (Auto) 0.2 % Immature Granulocyte # (Auto) 0.01 K/uL Activated Partial Thromboplast Time 28.0 SECONDS Partial Thromboplastin Ratio 1.1 Sodium Level 140 mmol/L Potassium Level 3.6 mmol/L Chloride Level 110 mmol/L Carbon Dioxide Level 25 mmol/L Anion Gap 5.0 mmol/L Blood Urea Nitrogen 15 mg/dl Creatinine 1.05 mg/dl Est Creatinine Clear Calc Drug Dose 81.1 ml/min Estimated GFR () 88.4 Estimated GFR (Non- 76.2 BUN/Creatinine Ratio 14.6 Random Glucose 106 mg/dl Calcium Level 8.4 mg/dl Imaging: Normal left ventricular size and function Telemetry reviewed: Atrial fibrillation tell conversion at around 3 PM on January 03, 2018, sinus rhythm since Assessment and Plan 1. Atrial fibrillation: Although this is the first episode of documented atrial fibrillation it is likely that this was a cause of his stroke 7 years ago. He may have it in the interim, although he is unaware of it and he does follow his heart rate and blood pressure with some frequency and he is also aware of the sensation and does not recall having it in the past. He could have brief episodes or perhaps he only has rare episodes. In any case with his history and his presentation now I would maintain anticoagulation over the long run and treat him with rate control. 2. Prior stroke: His prior stroke was cryptogenic, and I think it is likely it was due to atrial fibrillation although we cannot prove that. That makes it more compelling to continue chronic anticoagulation over the long run. 3. Hypertension: He has a history of hypertension which was managed on lisinopril alone. Hopefully his current dose of diltiazem will control his blood pressure although will we need to see that in follow-up.1 Thank you for allowing me to participate in his care.
[2018-01-04 12:31] VITALS: BP 119/84; PULSE 90; TEMP 36.5; O2SAT 96
[2018-01-04 13:13] VITALS: BP 119/84; PULSE 90; TEMP 36.5; O2SAT 96
--- NOTE | 2018-01-04 19:43 | Discharge Summary ---
Discharge Summary Date of Service Jan 04, 2018. Discharge Summary Admission Date: Jan 02, 2018 at 16:00 Discharge Date: Jan 04, 2018 Discharge Disposition: Home Principal Diagnosis: New Onset Atrial Fibrillation Problems/Secondary Diagnoses: 1. H/O CVA 2010 2. HTN 3. RLS 4. Anxiety 5. Daily ETOH Consumption Immunizations: Have You Had Influenza Vaccine: Unknown Influenza Vaccine Date: Jul 09, 2006 History of Tetanus Vaccine?: Unknown History of Pneumococcal: Unknown History of Hepatitis B Vaccine: Unknown Procedures: ECHOCARDIOGRAM * Left ventricular systolic function is normal. * No regional wall motion abnormalities noted. * Ejection Fraction = 60-65%. * There is borderline concentric left ventricular hypertrophy. * There is mild mitral regurgitation. Consultations: 1. Cardiology Medication Reconciliation New Medications: Folic Acid (Folvite) 1 Mg Tab 1 TAB PO DAILY for 30 Days, #30 TAB Thiamine HCl (Vitamin B-1) 100 Mg Tab 100 MG PO DAILY for 30 Days, #30 TABS Diltiazem Hcl (Diltiazem Cd) 240 Mg Capcr 240 MG PO QAM for 30 Days, #30 TABS Pantoprazole (Pantoprazole Sodium) 40 Mg Tab 40 MG PO QAM for 30 Days, #30 TAB Rivaroxaban (Xarelto) 20 Mg Tab 20 MG PO HS for 30 Days, #30 TAB Continued Medications: Aspirin (Aspirin Ec) 325 Mg Tab 162.5 MG PO HS TAKES 1/2 OF A 325MG TABLET FOR DOSE Lorazepam (Ativan) 0.5 Mg Tab 0.5 MG PO HS PRN for ., TAB Ropinirole (Requip) 0.5 Mg Tab 0.5 MG PO HS, TAB Discontinued Medications: Lisinopril (Prinivil) 10 Mg Tab 10 MG PO QAM Discharge Exam Review of Systems: Constitutional: No fever, No chills Respiratory: No cough, No shortness of breath Cardiovascular: No chest pain, No palpitations Abdomen: No pain, No nausea, No vomiting, No diarrhea, No constipation Musculoskeletal: No swelling, No calf pain Genitourinary - Male: No dysuria Hematologic / Lymphatic: No abnormal bleeding/bruising Physical Exam: General Appearance: WD/WN, no apparent distress Eyes: sclerae normal ENT: hearing grossly normal Neck: supple, no JVD, trachea midline Respiratory/Chest: lungs clear, normal breath sounds, no respiratory distress, no accessory muscle use Cardiovascular: regular rate, rhythm, no gallop, no murmur Abdomen / GI: normal bowel sounds, non tender, soft Extremities: no pedal edema Neurologic/Psychiatric: alert, oriented x 3 Skin: normal color, warm/dry Hospital Course ADMISSION: 62 year old gentleman with complaints of palpitations, chest pain, light headedness, some shortness of breath and weakness. Hx of prior CVA 2010. Former smoker. continues to drink regularly (3 to 4 drinks daily), admits to drinking more over the weekend. Three days ago started with the palpitations, feeling week, nausea, chest tightness. symptoms persisted and he presented to the ED for evaluation. No fever or chills. No diarrhea. No ankle swelling. No focal deficits or complaints although notes right side is weaker than the left since his stroke. Found to be in Afib with RVR in ED. Given cardizem bolus and now on cardizem gtt. Heart rate currently in the 110 to 120 range. Still with palpitations. Initial trop normal. CXR with no active disease. Mg and TSH normal. Also given a banana bag and started on a heparin gtt. Hospital medicine was asked to see the patient and he will be placed under the hospitalist service. HOSPITAL COURSE: New Onset Atrial Fibrillation with RVR: Converted to NSR - Patient reports chronic history of feelings of palpitations but has never been officially Dx with A Fib; States he used to smoke and that is when he had more palpitations but quit after his CVA approx. 7 years ago - Stop Lisinopril and continue Diltiazem 240 mg daily for rate control and HTN control - Started Xarelto 20 mg daily -- Given his daily ETOH consumption it was decided to not utilize Coumadin due to increased risk of bleeding and would recommend continuation of NOAC - Given patient only has [facility] coverage he was given a discount card for Diltiazem ($20/month) and a free month of Xarelto but if this would not be covered then ultimately he will need Coumadin - Would recommend event monitor to further assess if this is a more consistent rhythm vs related to binge drinking this weekend/Holiday Heart? 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 Discussed with Yanira Mayorga PAC and agree with findings and plan as documented in the note. Any exceptions or clarifications are listed here: None This pt did convert to NSR, I reinforced how his drinking maybe impacting his afib and the need for some anticoagulation for a period of time while an outpt monitor confirms or refutes if this is a one time thing or PAF, he agrees to follow up with cardiology vitals are stable Car remains regular without murmur lungs are clear Afib converted to NSR, maybe related to alcohol excess. continue anticoagulation and out/ home monitoring and cardiology follow up Documented By: Nelson Jerez (Nelson Jerez M.D.) Total Time Spent: Greater than 30 minutes This includes examination of the patient, discharge planning, medication reconciliation, and communication with other providers. Discharge Instructions Please refer to the electronic Patient Visit Report (Discharge Instructions) for additional information. Additional Copies To [facility]; [facility]
[2018-01-04] MEDS ORDERED: RIVAROXABAN 20 MG TAB PO SCH (21:00)
--- NOTE | 2018-01-05 14:14 | EDITING REQUIRED CODING QUERY ---
CODING QUERY To promote full compliance with coding requirements relating to patient care, provider participation is requested in all cases of double spindle shaper operator uncertainty. Please assist us with the question(s) below: Coding Question(s): Please clarify for proper coding if patient has: Alcohol Abuse ( ) Alcohol Dependence ( x ) Other ( ) Unspecified ( ) Physician's Response(s): Thank you Alexandria Franco Principal Diagnosis: "_that condition established after study, to be chiefly responsible for occasioning the admission of the patient to the hospital for care." Co-Existing Principal Diagnosis: "_when two or more diagnoses equally meet the criteria for principal diagnosis as determined by the circumstances of admission, diagnostic work up, and/or therapy provided, and the Alphabetic Index, Tabular List, or another coding guideline does not provide sequencing direction, any one of the diagnoses may be sequenced first." "When the physician has documented what appears to be a current diagnosis in the body of the record, but has not included the diagnosis in the final diagnostic statement, the physician should be asked whether the diagnosis should be added." (Source Coding Clinic 2 QTR90. p3-4)
== END 2018-01-04 13:44 | disposition home or self-care (01) | DRG 310 ==
LOC: C.EDB 13:28 → C.2T 16:00 → ENRESERV 16:24 → C.2T 17:31 → UNDOADMIN 17:31
PROVIDERS: ADMIT Hospitalist; ATTEND Internal Medicine
DX: I48.91 Unspecified atrial fibrillation (principal); I10 Essential (primary) hypertension; F41.9 Anxiety disorder, unspecified; M54.6 Pain in thoracic spine; F10.20 Alcohol dependence, uncomplicated; E86.0 Dehydration; G25.81 Restless legs syndrome; Z79.82 Long term (current) use of aspirin; Z86.73 Personal history of transient ischemic attack (TIA), and cerebral infarction without residual deficits; Z87.891 Personal history of nicotine dependence; Z80.9 Family history of malignant neoplasm, unspecified; Z82.49 Family history of ischemic heart disease and other diseases of the circulatory system

== ENCOUNTER 2020-05-01 03:44 | Inpatient (IN) ==
--- NOTE | 2020-05-01 03:59 | Emergency Department Note ---
Impression & Plan Atrial fibrillation with rapid ventricular response, Chest pressure ED Provider Note NAME: JUSTINA MYERS AGE: 65 SEX: M ARRIVES VIA: Walk-In INFORMANT: Patient ED PROVIDER(S): Saida Valdovinos DO CHIEF COMPLAINT: Palpitations and chest pressure PLAN: [facility] MEDICAL DECISION MAKING: This is a 65-year-old male patient who presents to the emergency department this morning complaining of palpitations and chest pressure. The patient has remote history of A. fib approximately 5 years ago for which he was hospitalized. He has been taking Eliquis. The patient mid to drinking a moderate amount of alcohol throughout the day yesterday and awaking from sleep tonight with nausea, chest pressure and palpitations. Patient was noted to be in atrial fibrillation with a rapid ventricular response. He was given 20 mg of IV Cardizem. This only slightly lower the heart rate. He was then given IV Lopressor. The patient is chest pressure resolved. [facility] for further management. Because of the patient's alcohol abuse, he was started on a banana bag. His current alcohol level is less than 3. He is hemodynamically stable. Triage Nursing notes reviewed and agree them. Additional history obtained from Prior medical records reviewed Vital Signs: reviewed and remarkable for no significant abnormalities Differential diagnosis: Cardiac dysrhythmia, STEMI, NSTEMI, alcohol overdose, holiday heart, electrolyte abnormality ER treatment provided: IV Cardizem, IV Lopressor, IV normal saline, IV banana bag Diagnostics interpreted by me: ECG: Atrial fibrillation with rapid ventricular response at a rate of 156. There is some mild ST segment depression laterally and inferiorly. There is no ST segment elevation or ectopy. Cardiac Monitoring: A. fib with RVR at a rate of 152 Laboratory studies: See below Imaging studies: As per my interpretation HPI: 65/M arrives for evaluation of chest pressure and palpitation. Patient presents to the emergency department after waking at 2:30 AM with chest pressure, nausea and palpitations. The patient admits to being an alcoholic and drinking heavily throughout the day today. He has 1 previous episode of atrial fibrillation 5 years ago for which he was hospitalized. The patient does take Eliquis. Patient denies any shortness of breath. He does describe 1 episode of vomiting. ROS: See above HPI for pertinent positives & negatives. A total of 10 systems reviewed and were otherwise negative. PAST MEDICAL HISTORY:CVA, A. fib, alcoholism PAST SURGICAL HISTORY:Hemorrhoidectomy, removal of a lipoma FAMILY HISTORY:See Below SOCIAL HISTORY:Patient is retired from [employer]; he admits to significant alcohol use and marijuana use. HOME MEDICATIONS:See list ALLERGIES:None VITALS:See Below PHYSICAL EXAMINATION: HEENT: Head - normocephalic and atraumatic Pupils are equal, round, and reactive to light. Extraocular eye muscles are intact, and sclera are anicteric. Nose - moist nasal mucosa without discharge. Mouth - moist buccal mucosa. Oropharynx is nonerythematous and there is no tonsillar exudate or edema noted. Neck: Supple; no JVD, nuchal rigidity, cervical lymphadenopathy, or auscultated bruits. Heart: Irregularly irregular rhythm with a tachycardic rate there is a normal S1 and S2 with no murmurs, clicks, or gallops appreciated. Lungs: Clear to auscultation bilaterally with no wheezes, rales, or rhonchi. Abdomen: Soft, completely nontender, nondistended, with good bowel sounds. There are no palpable pulsatile masses or hepatosplenomegaly. There is no guarding, rigidity, or rebound noted. Extremities: No evidence of cyanosis, clubbing, or edema. There are easily palpable peripheral pulses. Skin: warm and dry with good turgor and no rashes. ED COURSE: Times/Reassessments: 0400: The patient was evaluated in room C7. A complete history and physical was performed. An order was placed for continuous cardiac monitoring. The patient was in atrial fibrillation with a rapid ventricular response at a rate of 152. Previous electronic medical records were reviewed. A twelve-lead EKG was obtained as described above. The patient was given 20 mg of IV Cardizem Patient's heart rate came down slightly but he remains in atrial fibrillation. Additional laboratory studies were drawn and the patient was given 5 mg of IV Lopressor 0505: On reevaluation of the patient, the patient's heart rate has decreased even more but he remains in A. fib. He denies any more chest pressure or nausea at this time. He is able to drink clear liquids. I have personally spent greater than 60 minutes of critical care time in the direct management of this patient. This includes bedside care, interpretation of diagnostic studies, and testing, discussion with consultants, patient, and family members, and other required patient management activities. This 60 minutes is in excess of all separately billable procedures. Saida Valdovinos DO Past Med/Surg History Social History Smoking Status: Never smoker Second Hand Exposure: No; Hx Alcohol Use: Yes Alcohol type: beer, wine and hard liquor Hx Substance Use: Yes Last Used Substance Other:: 1 week ago Preferred Language: Malaysian Communication Ability: Effective Supervisor Sign Shop Required: No Beliefs That Will Affect Care: None Current Living Situation: Other Feels Safe at Home: Yes Allergies Allergies Allergy/AdvReac Type Severity Reaction Status Date / Time No Known Allergies Allergy Verified 05/01/20 04:31 Home Meds Home Medications Medication Instructions Recorded Confirmed Eliquis 2.5 mg PO BID 11/01/19 05/01/20 lisinopril 10 mg PO QAM 11/01/19 05/01/20 ropinirole 0.5 mg PO HS 11/01/19 05/01/20 multivitamin 1 tab PO QAM 12/19/19 05/01/20 Results & Data (ED) Vital Signs Vital Signs - 24 hr 05/01/20 03:45 05/01/20 03:54 05/01/20 04:09 Temperature 36.5 C Temperature Source Oral Pulse Rate 152 H Pulse Rate [Apical] Pulse Rhythm [Apical] Respiratory Rate 20 Respiratory Effort / Characteristics Non-Labored Spontaneous Non-Labored Spontaneous Respiratory Depth Normal Normal Blood Pressure 128/102 H Blood Pressure [Right Arm] Blood Pressure Mean 110 Blood Pressure Mean [Right Arm] Blood Pressure Position [Right Arm] Pulse Oximetry 94 Oxygen Delivery Method Room Air Room Air Room Air Sepsis Recent Fever Within 48 Hours No Sepsis New/Unexplained Change in Mental Status No Sepsis Action Taken by Nursing No Action Required 05/01/20 04:27 05/01/20 05:17 Temperature Temperature Source Pulse Rate 123 H Pulse Rate [Apical] 115 H Pulse Rhythm [Apical] Irregular Respiratory Rate Respiratory Effort / Characteristics Respiratory Depth Blood Pressure 112/81 Blood Pressure [Right Arm] 141/99 H Blood Pressure Mean Blood Pressure Mean [Right Arm] 113 Blood Pressure Position [Right Arm] Lying Pulse Oximetry Oxygen Delivery Method Sepsis Recent Fever Within 48 Hours Sepsis New/Unexplained Change in Mental Status Sepsis Action Taken by Nursing Laboratory Data Result diagrams: 05/01/20 04:00 05/01/20 04:00 Lab Results 05/01/20 05/01/20 05/01/20 Range/Units 04:00 04:00 05:21 WBC 8.30 (4.8-10.8) K/uL RBC 5.23 (4.7-6.1) M/uL Hgb 16.5 (14.0-18.0) g/dL Hct 47.1 (42-52) % MCV 90.1 (80-100) fL MCH 31.5 (25-34) pg MCHC 35.0 (32-36) g/dL RDW Std Deviation 44.9 (36.4-46.3) fL RDW Coeff of Alejandro 13.6 (11.5-14.5) % Plt Count 267 (130-400) K/uL MPV 11.3 H (7.4-10.4) fL Immature Gran % (Auto) 0.0 % Neut % (Auto) 61.1 % Lymph % (Auto) 27.1 % [place] % (Auto) 8.2 % Eos % (Auto) 3.4 % Baso % (Auto) 0.2 % Neut # (Auto) 5.07 (1.4-6.5) K/uL Lymph # (Auto) 2.25 (1.2-3.4) K/uL [place] # (Auto) 0.68 H (0.11-0.59) K/uL Eos # (Auto) 0.28 (0-0.5) K/uL Baso # (Auto) 0.02 (0-0.2) K/uL Immature Gran # (Auto) 0.00 (0.00-0.02) K/uL Sodium 138 (136-145) mmol/L Potassium 3.6 (3.5-5.1) mmol/L Chloride 106 (98-107) mmol/L Carbon Dioxide 24 (21-32) mmol/L Anion Gap 8.0 (3-11) BUN 13 (7-18) mg/dl Creatinine 0.98 (0.6-1.4) mg/dl Est Cr Clr Drug Dosing 83.6 ml/min Est GFR ( Amer) 94.1 Est GFR (Non-Af Amer) 81.2 BUN/Creatinine Ratio 13.1 (10-20) Glucose 108 H (70-99) mg/dl Calcium 9.1 (8.5-10.1) mg/dl Magnesium 2.1 (1.8-2.4) mg/dl Total Bilirubin 0.3 (0.2-1) mg/dl AST 23 (15-37) U/L ALT 34 (12-78) U/L Alkaline Phosphatase 78 (45-117) U/L Troponin I < 0.015 (0-0.045) ng/ml Total Protein 7.8 (6.4-8.2) gm/dl Albumin 3.9 (3.4-5.0) gm/dl Globulin 3.9 (2.5-4.0) gm/dl Albumin/Globulin Ratio 1.0 (0.9-2) TSH 0.874 (0.300-4.500) uIu/ml Ethyl Alcohol mg/dL (0-3) mg/dl 05/01/20 Range/Units 05:21 WBC (4.8-10.8) K/uL RBC (4.7-6.1) M/uL Hgb (14.0-18.0) g/dL Hct (42-52) % MCV (80-100) fL MCH (25-34) pg MCHC (32-36) g/dL RDW Std Deviation (36.4-46.3) fL RDW Coeff of Alejandro (11.5-14.5) % Plt Count (130-400) K/uL MPV (7.4-10.4) fL Immature Gran % (Auto) % Neut % (Auto) % Lymph % (Auto) % [place] % (Auto) % Eos % (Auto) % Baso % (Auto) % Neut # (Auto) (1.4-6.5) K/uL Lymph # (Auto) (1.2-3.4) K/uL [place] # (Auto) (0.11-0.59) K/uL Eos # (Auto) (0-0.5) K/uL Baso # (Auto) (0-0.2) K/uL Immature Gran # (Auto) (0.00-0.02) K/uL Sodium (136-145) mmol/L Potassium (3.5-5.1) mmol/L Chloride (98-107) mmol/L Carbon Dioxide (21-32) mmol/L Anion Gap (3-11) BUN (7-18) mg/dl Creatinine (0.6-1.4) mg/dl Est Cr Clr Drug Dosing ml/min Est GFR ( Amer) Est GFR (Non-Af Amer) BUN/Creatinine Ratio (10-20) Glucose (70-99) mg/dl Calcium (8.5-10.1) mg/dl Magnesium (1.8-2.4) mg/dl Total Bilirubin (0.2-1) mg/dl AST (15-37) U/L ALT (12-78) U/L Alkaline Phosphatase (45-117) U/L Troponin I (0-0.045) ng/ml Total Protein (6.4-8.2) gm/dl Albumin (3.4-5.0) gm/dl Globulin (2.5-4.0) gm/dl Albumin/Globulin Ratio (0.9-2) TSH (0.300-4.500) uIu/ml Ethyl Alcohol mg/dL < 3.0 (0-3) mg/dl Administered Medications Multivitamins 10 ml/ Thiamine HCl 100 mg/ Folic Acid 1 mg/Sodium Chloride 1,011.2 mls @ 1,011.2 mls/hr IV .Q1H ONE Stop: 05/01/20 06:45 Last Admin: 05/01/20 06:16 Dose: 1,011.2 mls/hr Documented by: [id number] Discontinued Medications Diltiazem HCl (Cardizem) Confirm Administered Dose 25 mg IV .STK-MED ONE Stop: 05/01/20 04:08 Last Increment: 05/01/20 04:10 Dose: 20 mg Documented by: [id number] Cosigned by: [id number] Sodium Chloride (Nss) 500 mls @ 999 mls/hr IV .Q31M ONE Stop: 05/01/20 05:39 Last Infusion: 05/01/20 06:16 Dose: 0 mls/hr Documented by: [id number] Admin: 05/01/20 05:18 Dose: 999 mls/hr Documented by: [id number] Metoprolol Tartrate (Lopressor) 5 mg IV NOW STA Stop: 05/01/20 05:10 Last Admin: 05/01/20 05:17 Dose: 5 mg Documented by: [id number] Discharge Plan Visit Data Chief Complaint: Arrhythmia/Palpitations Stated Complaint: AFIB ED Provider: Saida Valdovinos Discharge Problem: Atrial fibrillation with rapid ventricular response, Chest pressure Forms Stand Alone Forms: [facility] Prescriptions Prescriptions: No Action multivitamin Tablet 1 tab PO QAM RF: 0 ropinirole 0.5 mg Tablet 0.5 mg PO HS RF: 0 lisinopril 10 mg Tablet 10 mg PO QAM RF: 0 Eliquis 2.5 mg Tablet 2.5 mg PO BID RF: 0
[2020-05-01] MEDS ORDERED: dilTIAZem HCl 5 MG/ML 5 ML VIAL IV ONE (04:07)
[2020-05-01 04:20] LABS: Basophils # (auto) 0.02 K/uL (0-0.2); Basophils % (auto) 0.2 %; Eosinophils # (auto) 0.28 K/uL (0-0.5); Eosinophils % (auto) 3.4 %; Hematocrit (blood only) 47.1 % (42-52); Hemoglobin 16.5 g/dL (14.0-18.0); Lymphocytes # (auto) 2.25 K/uL (1.2-3.4); Lymphocytes % (auto) 27.1 %; Mean Corpuscular Hemoglobin 31.5 pg (25-34); Mean Corpuscular Volume 90.1 fL (80-100); Mean Platelet Volume 11.3 fL (7.4-10.4); Monocytes # (auto) 0.68 K/uL (0.11-0.59); Monocytes % (auto) 8.2 %; Neutrophils # (auto) 5.07 K/uL (1.4-6.5); Neutrophils % (auto) 61.1 %; Platelet Count 267 K/uL (130-400); RDW Coefficient of Variation 13.6 % (11.5-14.5); RDW Standard Deviation 44.9 fL (36.4-46.3); Red Blood Count 5.23 M/uL (4.7-6.1)
[2020-05-01 04:38] LABS: Albumin Level 3.9 gm/dl (3.4-5.0); BUN Creatinine Ratio 13.1 (10-20); Calcium 9.1 mg/dl (8.5-10.1); Creatinine Clr Calc Pharmacy 83.6 ml/min; Est GFR (African American) 94.1; Est GFR (Non-African American) 81.2; Magnesium 2.1 mg/dl (1.8-2.4); Potassium 3.6 mmol/L (3.5-5.1)
[2020-05-01 04:49] LABS: Bilirubin,Total 0.3 mg/dl (0.2-1); Globulin 3.9 gm/dl (2.5-4.0); Thyroid Stimulating Hormone 0.874 uIu/ml (0.300-4.500); Total Protein 7.8 gm/dl (6.4-8.2)
[2020-05-01] MEDS ORDERED: SODIUM CHLORIDE 0.9% 500 ML IV ONE (05:09)
[2020-05-01] MEDS ORDERED: METOPROLOL TARTRATE 1 MG/ML VIAL IV STA (05:09)
[2020-05-01] MEDS ORDERED: MULTI-VITAMIN INFUSION 10 ML, THIAMINE HCL 100 MG, FOLIC ACID 1 MG in SODIUM CHLORIDE 0... IV ONE (05:46)
--- NOTE | 2020-05-01 06:49 | History & Physical Report ---
Date of Service May 01, 2020 Assessment & Plan (1) Atrial fibrillation: 65yo C male presents in AF with RVR in setting of heavy EtOH consumption. Patient has history of the same in January 2018 - he was treated with IV diltiazem and heparin and ultimately converted to NSR. Patient was discharged home on PO Diltiazem and started on Xarelto for anticoagulation. He states he took the Diltiazem for a few days but he did not feel well on it therefore he stopped taking it. Echocardiogram 01/03/18 with normal LV function, EF of 60-65%, borderline concentric LVH, mild MR, no regional WMA Denies CP/SOB/dizziness. -Admit to medical floor with telemetry -Continue Eliquis - will increase to 5mg po BID, normal renal function, 65yo -Metoprolol 50mg po daily -Metoprolol 5mg IV q 4 hours as needed for HR >120. (2) HTN (hypertension): Blood pressure 112/81. -Continue Lisinopril -Metoprolol succinate 50mg po qAM to start today Present on Admission?: Yes (3) Restless leg syndrome: Chronic -Continue Ropinirole 0.5mg po qHS Present on Admission?: Yes (4) History of stroke: Most likely secondary to underlying AF. Patient has very mild residual right sided weakness -Continue Eliquis F/E/N - banana bag administered, electrolytes within normal limits, Heart Healthy diet as tolerated Ppx - Eliquis for AF Code - Full per discussion with patient Dispo - Admit to Med/Tele Present on Admission?: Yes Admission and Anticipated Discharge Date Admission Date: 05/01/20 Anticipated date of discharge: 05/02/20 History of Present Illness Chief Complaint: atrial fibrillation Primary Care Provider: Gely Bond PA-C Stephen Conley is a 65yo male presenting in atrial fibrillation with RVR. Patient reports drinking a heavy amount of alcohol throughout the day and evening yesterday. At 0230 he woke up with palpitations, chest pressure and nausea and was overall feeling "lousy". Patient had a similar event in 2018 when he went into AF secondary to heavy EtOH consumption On arrival he was found to be in AF with RVR at 152 bpm. He was administered Diltiazem x 25mg and Metoprolol tartrate x 5mg with improvement in HR to 120. Patient still does not feel well. He denies fever/chills/CP/SOB/cough/abdominal pain/nausea/vomiting/diarrhea. No additional complaints at this time. ER Course: Diltiazem 25mg, Metoprolol 5mg, Banana bag Allergies Allergy/AdvReac Type Severity Reaction Status Date / Time No Known Allergies Allergy Verified 05/01/20 04:31 Home Medications Home Medications Medication Instructions Recorded Confirmed Type Eliquis 2.5 mg PO BID 11/01/19 05/01/20 History lisinopril 10 mg PO QAM 11/01/19 05/01/20 History ropinirole 0.5 mg PO HS 11/01/19 05/01/20 History multivitamin 1 tab PO QAM 12/19/19 05/01/20 History Past Med/Surg History Social History Smoking Status: Never smoker Second Hand Exposure: No; Hx Alcohol Use: Yes Alcohol type: beer, wine and hard liquor Hx Substance Use: Yes Last Used Substance Other:: 1 week ago Preferred Language: Cuban Communication Ability: Effective Microsoft Access Developer Required: No Beliefs That Will Affect Care: None Current Living Situation: Other Feels Safe at Home: Yes Review of Systems Review of Systems: All systems reviewed & are unremarkable except as noted in HPI & below Physical Exam Physical Exam: General: patient resting comfortably, NAD, non-toxic in appearance, AA&O x 4 Skin: warm, dry, intact, no rashes or lesions HEENT: NC/AT, PERRL, EOMI, anicteric sclera, conjunctiva without injection, external ear normal to inspection and nontender, nares patent, moist mucus membranes, dentition intact, no oropharyngeal lesions, neck supple, trachea midline, no LAD, no thyromegaly, no JVD Heart: +S1/S2, irregularly irregular, tachycardic, no m/r/g Lungs: equal air entry bilaterally, no rales/rhonchi/wheezes Abd: +BS, soft, NT/ND, no masses/organomegaly/ascites Ext: warm, 2+ pulses in UE/LE bilaterally, no clubbing/cyanosis or edema Neuro: mild right sided weakness 4+/5 residual from prior stroke, patient AA&O x 4, speech intact, no facial droop, moving all extremities on command Results & Data Results & Data ([facility]) Vital Signs (Past 12 Hours) Vital Signs Temp Pulse Pulse Resp BP BP Pulse Ox 05/01/20 05:17 123 H 112/81 05/01/20 04:27 115 H 141/99 H 05/01/20 03:54 36.5 C 152 H 20 128/102 H 94 Laboratory Results Lab Results 05/01/20 05/01/20 05/01/20 Range/Units 04:00 04:00 05:21 WBC 8.30 (4.8-10.8) K/uL RBC 5.23 (4.7-6.1) M/uL Hgb 16.5 (14.0-18.0) g/dL Hct 47.1 (42-52) % MCV 90.1 (80-100) fL MCH 31.5 (25-34) pg MCHC 35.0 (32-36) g/dL RDW Std Deviation 44.9 (36.4-46.3) fL RDW Coeff of Alejandro 13.6 (11.5-14.5) % Plt Count 267 (130-400) K/uL MPV 11.3 H (7.4-10.4) fL Immature Gran % (Auto) 0.0 % Neut % (Auto) 61.1 % Lymph % (Auto) 27.1 % [place] % (Auto) 8.2 % Eos % (Auto) 3.4 % Baso % (Auto) 0.2 % Neut # (Auto) 5.07 (1.4-6.5) K/uL Lymph # (Auto) 2.25 (1.2-3.4) K/uL [place] # (Auto) 0.68 H (0.11-0.59) K/uL Eos # (Auto) 0.28 (0-0.5) K/uL Baso # (Auto) 0.02 (0-0.2) K/uL Immature Gran # (Auto) 0.00 (0.00-0.02) K/uL Sodium 138 (136-145) mmol/L Potassium 3.6 (3.5-5.1) mmol/L Chloride 106 (98-107) mmol/L Carbon Dioxide 24 (21-32) mmol/L Anion Gap 8.0 (3-11) BUN 13 (7-18) mg/dl Creatinine 0.98 (0.6-1.4) mg/dl Est Cr Clr Drug Dosing 83.6 ml/min Est GFR ( Amer) 94.1 Est GFR (Non-Af Amer) 81.2 BUN/Creatinine Ratio 13.1 (10-20) Glucose 108 H (70-99) mg/dl Calcium 9.1 (8.5-10.1) mg/dl Magnesium 2.1 (1.8-2.4) mg/dl Total Bilirubin 0.3 (0.2-1) mg/dl AST 23 (15-37) U/L ALT 34 (12-78) U/L Alkaline Phosphatase 78 (45-117) U/L Troponin I < 0.015 (0-0.045) ng/ml Total Protein 7.8 (6.4-8.2) gm/dl Albumin 3.9 (3.4-5.0) gm/dl Globulin 3.9 (2.5-4.0) gm/dl Albumin/Globulin Ratio 1.0 (0.9-2) TSH 0.874 (0.300-4.500) uIu/ml Ethyl Alcohol mg/dL (0-3) mg/dl 05/01/20 Range/Units 05:21 WBC (4.8-10.8) K/uL RBC (4.7-6.1) M/uL Hgb (14.0-18.0) g/dL Hct (42-52) % MCV (80-100) fL MCH (25-34) pg MCHC (32-36) g/dL RDW Std Deviation (36.4-46.3) fL RDW Coeff of Alejandro (11.5-14.5) % Plt Count (130-400) K/uL MPV (7.4-10.4) fL Immature Gran % (Auto) % Neut % (Auto) % Lymph % (Auto) % [place] % (Auto) % Eos % (Auto) % Baso % (Auto) % Neut # (Auto) (1.4-6.5) K/uL Lymph # (Auto) (1.2-3.4) K/uL [place] # (Auto) (0.11-0.59) K/uL Eos # (Auto) (0-0.5) K/uL Baso # (Auto) (0-0.2) K/uL Immature Gran # (Auto) (0.00-0.02) K/uL Sodium (136-145) mmol/L Potassium (3.5-5.1) mmol/L Chloride (98-107) mmol/L Carbon Dioxide (21-32) mmol/L Anion Gap (3-11) BUN (7-18) mg/dl Creatinine (0.6-1.4) mg/dl Est Cr Clr Drug Dosing ml/min Est GFR ( Amer) Est GFR (Non-Af Amer) BUN/Creatinine Ratio (10-20) Glucose (70-99) mg/dl Calcium (8.5-10.1) mg/dl Magnesium (1.8-2.4) mg/dl Total Bilirubin (0.2-1) mg/dl AST (15-37) U/L ALT (12-78) U/L Alkaline Phosphatase (45-117) U/L Troponin I (0-0.045) ng/ml Total Protein (6.4-8.2) gm/dl Albumin (3.4-5.0) gm/dl Globulin (2.5-4.0) gm/dl Albumin/Globulin Ratio (0.9-2) TSH (0.300-4.500) uIu/ml Ethyl Alcohol mg/dL < 3.0 (0-3) mg/dl Diagnostic Findings CXR - NAD ECG Additional Comments: EKG with AF with RVR, no acute ischemic changes Code Status & VTE Plan Code Status FULL PG Care Time/CCT Total # of Minutes Spent Total Time Spent with Patient: Total time spent is greater than 50% in coordination of care (as documented) at patient's floor/unit and/or counseling patient: Coding Level of Care Code 10792 Initial Inpt Care Lvl 3 Diagnoses Atrial fibrillation I48.0 Atrial fibrillation type: paroxysmal HTN (hypertension) I10 Hypertension type: essential hypertension Restless leg syndrome G25.81 History of stroke Z86.73 (1) Atrial fibrillation Atrial fibrillation type: paroxysmal Qualified Code(s): I48.0 - Paroxysmal atrial fibrillation (2) HTN (hypertension) Hypertension type: essential hypertension Qualified Code(s): I10 - Essential (primary) hypertension
--- NOTE | 2020-05-01 07:38 | XRay Report ---
XR chest 1V portable HISTORY: 65 years-old Male afib with rvr acute atrial fibrillation COMPARISON: Chest radiograph 04/06/2018 TECHNIQUE: Portable AP view of the chest FINDINGS: Calcified granuloma of the lateral right lung base. The cardiomediastinal and hilar silhouettes are w ithin normal limits. No pneumothorax, pleural effusion, airspace consolidation or overt pulmonary klaudia ma. Healed remote left mid clavicular fracture. Degenerative changes of the shoulders and spine. IMPRESSION: No acute process. ACT 112: Negative or not required by law. The above report was generated using voice recognition software. It may contain grammatical, syntax o r spelling errors. Electronically signed by: Paul oRberts M.D. 05/01/2020 7:37 AM
--- NOTE | 2020-05-01 08:58 | Electrocardiogram Report ---
Test Reason : Blood Pressure : / mmHG Vent. Rate : 156 BPM Atrial Rate : 187 BPM P-R Int : 000 ms QRS Dur : 082 ms QT Int : 286 ms P-R-T Axes : 000 066 -10 degrees QTc Int : 460 ms Atrial fibrillation with rapid ventricular response Abnormal ECG When compared with ECG of 07-APR-2018 06:35, Sinus rhythm no longer present HR has increased by 100 bpm Confirmed by Sachin Manzano ([id number]) on 05/01/2020 8:58:18 AM Referred By: REFERRED SELF Confirmed By:Sachin Manzano
[2020-05-01] MEDS ORDERED: ONDANSETRON INJ 2 MG/ML 2 ML VIAL IV PRN (09:29)
[2020-05-01] MEDS ORDERED: METOPROLOL TARTRATE 1 MG/ML VIAL IV PRN (09:29)
[2020-05-01] MEDS ORDERED: ACETAMINOPHEN 325 MG TAB PO PRN (09:29)
[2020-05-01] MEDS ORDERED: LORazepam 1 MG/2 ML VIAL IV PRN (09:29)
--- NOTE | 2020-05-01 09:30 | Hospitalist Progress Note ---
Date of Service May 01, 2020 Assessment & Plan (1) Atrial fibrillation: 65yo C male presents in AF with RVR in setting of heavy EtOH consumption. Patient has history of the same in January 2018 - he was treated with IV diltiazem and heparin and ultimately converted to NSR. Patient was discharged home on PO Diltiazem and started on Xarelto for anticoagulation. He states he took the Diltiazem for a few days but he did not feel well on it therefore he stopped taking it. Echocardiogram 01/03/18 with normal LV function, EF of 60-65%, borderline concentric LVH, mild MR, no regional WMA Denies CP/SOB/dizziness. -Continue Eliquis - will increase to 5mg po BID, normal renal function, 65yo -Metoprolol 50mg po daily -Metoprolol 5mg IV q 4 hours as needed for HR >120. (2) HTN (hypertension): Blood pressure 112/81. -Continue Lisinopril -Metoprolol succinate 50mg po qAM to start today (3) Restless leg syndrome: Chronic -Continue Ropinirole 0.5mg po qHS (4) History of stroke: Most likely secondary to underlying AF. Patient has very mild residual right sided weakness -Continue Eliquis F/E/N - banana bag administered, electrolytes within normal limits, Heart Healthy diet as tolerated Ppx - Eliquis for AF Code - Full per discussion with patient Dispo - Admit to Med/Tele Admission and Anticipated Discharge Date Admission Date: May 01, 2020 Subjective Patient doing well heart rate coming down no complaints or problems Review of Systems Review of Systems: Mild distress and fatigue no headache, blurry or double vision no speech or swallowing issues no chest pain, pressure does have sensation of palpitations no shortness of breath, cough or wheezes no abdominal pain, nausea or vomiting, diarrhea or constipation no dysuria, hematuria or frequency no focal joint pain or swelling no back pain, CVA tenderness or radicular pain no bruising, bleeding or rashes no focal signs of weakness or numbness or altered sensation no complaints or anxiety or depression Physical Exam Physical Exam: The patient appeared well nourished and normally developed. Vital signs as documented. Head exam is normocephalic atraumatic no scleral icterus Neck is without JVD, thyromegaly, or carotid bruits. Lungs are clear to auscultation, no focal loss of breath sounds Cardiac exam, irregularly irregular.. No murmurs, rubs or gallops. Abdominal exam reveals normal bowel sounds, soft non tender, no masses Extremities are nonedematous and both pedal pulses are normal. Neurologic exam is alert and oriented, no focal loss of strength or sensation Skin is without bruises or rashes Psychologically is without concerns for anxiety or depression Results & Data Results & Data ([facility]) Vital Signs (Past 12 Hours) Vital Signs Temp Pulse Pulse Resp BP BP Pulse Ox 05/01/20 08:00 115 H 23 94 05/01/20 07:30 123 H 15 97 05/01/20 07:00 141 H 17 94 05/01/20 06:30 100 H 17 95 05/01/20 06:07 122 H 25 H 125/95 95 05/01/20 06:00 133 H 124 H 16 125/95 95 05/01/20 05:45 107 H 18 125/86 93 05/01/20 05:30 98 H 13 94 05/01/20 05:17 148 H 18 112/81 94 05/01/20 05:00 150 H 27 H 93 05/01/20 04:30 130 H 12 95 05/01/20 04:27 125 H 115 H 141/99 H 141/99 H 95 05/01/20 04:06 160 H 132/101 H 97 05/01/20 04:00 149 H 15 95 05/01/20 03:58 153 H 15 96 05/01/20 03:57 162 H 17 128/102 H 96 05/01/20 03:54 97.7 F 152 H 20 128/102 H 94 PG Care Time/CCT Total # of Minutes Spent Total Time Spent with Patient: Total time spent is greater than 50% in coordination of care (as documented) at patient's floor/unit and/or counseling patient: Coding Level of Care Code None Diagnoses Atrial fibrillation I48.0 Atrial fibrillation type: paroxysmal HTN (hypertension) I10 Hypertension type: essential hypertension Restless leg syndrome G25.81 History of stroke Z86.73 (1) Atrial fibrillation Atrial fibrillation type: paroxysmal Qualified Code(s): I48.0 - Paroxysmal atrial fibrillation (2) HTN (hypertension) Hypertension type: essential hypertension Qualified Code(s): I10 - Essential (primary) hypertension
[2020-05-01] MEDS: METOPROLOL SUCC 50MG EXT REL TAB PO SCH (10:16)
[2020-05-01] MEDS: THIAMINE HCL 100 MG TAB PO SCH (10:16)
[2020-05-01] MEDS: FOLIC ACID 1 MG TAB PO SCH (10:16)
[2020-05-01] MEDS: APIXABAN 5 MG TABLET PO SCH ×2 (10:16→20:51)
[2020-05-01] MEDS: lisinopriL 10 MG TAB PO SCH (10:17)
[2020-05-01] MEDS: MULTIVITAMIN TAB PO SCH (10:17)
[2020-05-01] MEDS ORDERED: ROPINIROLE HCL 1 MG TABLET PO SCH (21:00)
[2020-05-01] MEDS ORDERED: ROPINIROLE HCL 0.25 MG TABLET PO SCH (21:00)
--- NOTE | 2020-05-02 08:17 | Hospitalist Progress Note ---
Date of Service May 02, 2020 Assessment & Plan (1) Atrial fibrillation: 65yo C male presents in AF with RVR in setting of heavy EtOH consumption. Patient has history of the same in January 2018 - he was treated with IV diltiazem and heparin and ultimately converted to NSR. Patient was discharged home on PO Diltiazem and started on Xarelto for anticoagulation. He states he took the Diltiazem for a few days but he did not feel well on it therefore he stopped taking it. Echocardiogram 01/03/18 with normal LV function, EF of 60-65%, borderline concentric LVH, mild MR, no regional WMA Denies CP/SOB/dizziness. -Continue Eliquis - will increase to 5mg po BID, normal renal function, 65yo -Metoprolol 50mg po daily -Metoprolol 5mg IV q 4 hours as needed for HR >120. (2) HTN (hypertension): Blood pressure 112/81. -Continue Lisinopril -Metoprolol succinate 50mg po qAM to start today (3) Restless leg syndrome: Chronic -Continue Ropinirole 0.5mg po qHS (4) History of stroke: Most likely secondary to underlying AF. Patient has very mild residual right sided weakness -Continue Eliquis F/E/N - banana bag administered, electrolytes within normal limits, Heart Healthy diet as tolerated Ppx - Eliquis for AF Code - Full per discussion with patient Dispo - Admit to Med/Tele Admission and Anticipated Discharge Date Admission Date: May 01, 2020 Subjective Patient doing well heart rate coming down no complaints or problems Review of Systems Review of Systems: Mild distress and fatigue no headache, blurry or double vision no speech or swallowing issues no chest pain, pressure does have sensation of palpitations no shortness of breath, cough or wheezes no abdominal pain, nausea or vomiting, diarrhea or constipation no dysuria, hematuria or frequency no focal joint pain or swelling no back pain, CVA tenderness or radicular pain no bruising, bleeding or rashes no focal signs of weakness or numbness or altered sensation no complaints or anxiety or depression Physical Exam Physical Exam: The patient appeared well nourished and normally developed. Vital signs as documented. Head exam is normocephalic atraumatic no scleral icterus Neck is without JVD, thyromegaly, or carotid bruits. Lungs are clear to auscultation, no focal loss of breath sounds Cardiac exam, irregularly irregular.. No murmurs, rubs or gallops. Abdominal exam reveals normal bowel sounds, soft non tender, no masses Extremities are nonedematous and both pedal pulses are normal. Neurologic exam is alert and oriented, no focal loss of strength or sensation Skin is without bruises or rashes Psychologically is without concerns for anxiety or depression Results & Data Results & Data ([facility]) Vital Signs (Past 12 Hours) Vital Signs Temp Pulse Pulse Resp BP Pulse Ox 05/02/20 07:41 91 H 05/02/20 07:36 97.5 F L 87 16 108/70 95 05/02/20 03:56 98.1 F 78 16 99/67 L 94 05/01/20 23:00 98.1 F 98 H 18 102/74 96 PG Care Time/CCT Total # of Minutes Spent Total Time Spent with Patient: Total time spent is greater than 50% in coordination of care (as documented) at patient's floor/unit and/or counseling patient: Coding Diagnoses Atrial fibrillation I48.0 Atrial fibrillation type: paroxysmal HTN (hypertension) I10 Hypertension type: essential hypertension Restless leg syndrome G25.81 History of stroke Z86.73 (1) Atrial fibrillation Atrial fibrillation type: paroxysmal Qualified Code(s): I48.0 - Paroxysmal atrial fibrillation (2) HTN (hypertension) Hypertension type: essential hypertension Qualified Code(s): I10 - Essential (primary) hypertension
[2020-05-02 08:34] LABS: Hematocrit (blood only) 44.8 % (42-52); Hemoglobin 15.7 g/dL (14.0-18.0); Mean Corpuscular Hemoglobin 31.5 pg (25-34); Mean Platelet Volume 10.7 fL (7.4-10.4); Platelet Count 232 K/uL (130-400); RDW Coefficient of Variation 13.7 % (11.5-14.5); RDW Standard Deviation 44.6 fL (36.4-46.3); Red Blood Count 4.98 M/uL (4.7-6.1); White Blood Count 8.85 K/uL (4.8-10.8)
[2020-05-02 08:59] LABS: Calcium 8.9 mg/dl (8.5-10.1); Creatinine Clr Calc Pharmacy 87.1 ml/min; Est GFR (African American) 98.9; Est GFR (Non-African American) 85.3
[2020-05-02] MEDS: METOPROLOL SUCC 50MG EXT REL TAB PO SCH (09:06)
[2020-05-02] MEDS: FOLIC ACID 1 MG TAB PO SCH (09:06)
[2020-05-02] MEDS: THIAMINE HCL 100 MG TAB PO SCH (09:06)
[2020-05-02] MEDS: lisinopriL 10 MG TAB PO SCH (09:06)
[2020-05-02] MEDS: MULTIVITAMIN TAB PO SCH (09:58)
[2020-05-02] MEDS: APIXABAN 5 MG TABLET PO SCH (09:58)
--- NOTE | 2020-05-02 18:18 | Discharge Summary ---
Date of Service May 02, 2020 Admission HPI Per Admitting Provider Stephen Conley is a 65yo male presenting in atrial fibrillation with RVR. Patient reports drinking a heavy amount of alcohol throughout the day and evening yesterday. At 0230 he woke up with palpitations, chest pressure and nausea and was overall feeling "lousy". Patient had a similar event in 2017 when he went into AF secondary to heavy EtOH consumption On arrival he was found to be in AF with RVR at 152 bpm. He was administered Diltiazem x 25mg and Metoprolol tartrate x 5mg with improvement in HR to 120. Patient still does not feel well. He denies fever/chills/CP/SOB/cough/abdominal pain/nausea/vomiting/diarrhea. No additional complaints at this time. ER Course: Diltiazem 25mg, Metoprolol 5mg, Banana bag Principal Diagnosis afib rvr alcohol abuse Discharge Exam The patient appeared well Vital signs as documented. Lungs are clear to auscultation and appear unlabored Cardiac exam, irregularly irregular rate control .. No murmurs, rubs or gallops. Abdominal exam reveals normal bowel sounds, soft non tender, no masses Extremities are nonedematous and both pedal pulses are normal. Neurologic exam is alert and oriented, no focal loss of strength or sensation Skin is without bruises or rashes Psychologically is without concerns for anxiety or depression Discharge Data Allergies Allergy/AdvReac Type Severity Reaction Status Date / Time No Known Allergies Allergy Verified 05/01/20 04:31 Consultations 05/01/20 05:45 ED Decision to Admit Stat Hospital Course (1) Atrial fibrillation: 65yo C male presents in AF with RVR in setting of heavy EtOH consumption. Patient has history of the same in January 2018 - he was treated with IV diltiazem and heparin and ultimately converted to NSR. Patient was discharged home on PO Diltiazem and started on Xarelto for anticoagulation. He states he took the Diltiazem for a few days but he did not feel well on it therefore he stopped taking it. Echocardiogram 01/03/18 with normal LV function, EF of 60-65%, borderline concentric LVH, mild MR, no regional WMA Denies CP/SOB/dizziness. -Continue Eliquis - will increase to 5mg po BID, normal renal function, 65yo -Metoprolol 50mg po daily [facility] (2) HTN (hypertension): Blood pressure 112/81. -Continue Lisinopril -Metoprolol succinate 50mg po qAM (3) Restless leg syndrome: Chronic -Continue Ropinirole 0.5mg po qHS (4) History of stroke: Most likely secondary to underlying AF. Patient has very mild residual right sided weakness -Continue Eliquis We did discuss his alcohol use, he states that he typically drinks in moderation but will likely avoid drinking excessively Total Time Total Time Spent Total Time Spent (In Minutes): It required greater than 30 minutes to prepare this patient for discharge Discharge Plan Discharge Items Patient Disposition: Home - Self-Care Reason For Visit: AF Discharge Diagnosis: atrial fibrillation with rapid ventricular response Activity: Resume your previous activity Non-emergency contact: Primary Care Provider Call non-emergency contact if: you have any medication questions and your symptoms worsen Follow-up/Referrals: Gely Bond PA-C [Primary Care Provider] - Diet: Regular Addtl Attending Provider Instructions: please reduce or eliminate alcohol please take you medicaions and [facility], consider a repeat ECG at the [facility] to determine if you have returned to normal sinus rhythm you may benefit from being on the 5 mg dose of Eliquis two times a day, you may use what you have at home at two 2.5 mg pills twice a day and once out use your 5 mg tablets twice a day Pending Studies at Discharge: No Stand-Alone Forms: My [employer], Smoking Cessation Medications and DC Order Prescriptions: New metoprolol succinate 50 mg Tablet Extended Release 24 Hr 50 mg PO QAM Qty: 30 RF: 3 Eliquis 5 mg Tablet 5 mg PO BID Qty: 60 RF: 3 Continued multivitamin Tablet 1 tab PO QAM RF: 0 lisinopril 10 mg Tablet 10 mg PO QAM RF: 0 Changed ropinirole 0.5 mg Tablet 2 mg PO HS Qty: 0 RF: 0 Discontinued Eliquis 2.5 mg Tablet 2.5 mg PO BID RF: 0 Discharge Orders: Discharge Order (Routine); Ordered 05/02/20 Ordered By: Nelson Jerez Admission Data Admit Date/Time: 05/01/20 06:30 Attending Provider: Nelson Jerez Admit Provider: Luzma Hines Primary Care Provider: Gely Bond Other Providers: Luzma Hines Other Interventions: Discharge Summary Assessment (RN) Last Done: 05/02/20 12:44 DC Date/Time DO NOT enter until pt leaves facility: 05/02/20 14:47 Coding Level of Care Code D/C Day Management >30 mins Diagnoses Atrial fibrillation I48.0 Atrial fibrillation type: paroxysmal HTN (hypertension) I10 Hypertension type: essential hypertension Restless leg syndrome G25.81 History of stroke Z86.73
== END 2020-05-02 14:47 | disposition home or self-care (01) | DRG 310 ==
LOC: ED 03:44 → 2S 06:30 → SUATTDRO 06:30 → 2S 08:39 → 2N 22:53

== ENCOUNTER 2023-01-17 12:41 | Inpatient (IN) ==
[2023-01-17] MEDS ORDERED: SODIUM CHLORIDE 0.9% 1000ML 1,000 ML IV ONE (13:05)
[2023-01-17] MEDS ORDERED: METOPROLOL TARTRATE 1 MG/ML VIAL IV STA (13:05)
[2023-01-17] MEDS ORDERED: THIAMINE HCL 200 MG in SODIUM CHLORIDE 0.9% 50 ML IV STA (13:05)
[2023-01-17] MEDS ORDERED: MAGNESIUM SULFATE / D5W 1 GM/100 ML BAG IV STA (13:06)
--- NOTE | 2023-01-17 13:11 | Emergency Department Note ---
Impression & Plan Atrial fibrillation with rapid ventricular response, Heart palpitations, Generalized muscle weakness ED Provider Note NAME: JUSTINA MYERS AGE: 67 SEX: M : 1955 ARRIVES VIA: Walk-In INFORMANT: Patient, ED PROVIDER(S): Praveen Horton DO CHIEF COMPLAINT: Palpitations HPI: The patient is a 67-year-old male who presented to the emergency department for an evaluation of palpitations. The patient has a history of paroxysmal atrial fibrillation. He states over the course of the last few weeks he has noticed some episodes of atrial fibrillation. The previous episodes resolved spontaneously. The patient presented to the emergency department today because he has had 2 to 3 days of symptoms that have not resolved. Has not been seen by his senior applications architect for the symptoms today. He denies having any nausea or vomiting. He has had some alcohol use recently. He states he has had no fevers. He denies having any difficulty breathing or leg swelling. He states he has been compliant with his outpatient medications which include Eliquis and a beta-damian. ROS: See above HPI for pertinent positives & negatives. A total of 10 systems reviewed and were otherwise negative. PAST MEDICAL HISTORY: See Below PAST SURGICAL HISTORY: See Below FAMILY HISTORY: See Below SOCIAL HISTORY: See Below HOME MEDICATIONS: See Below ALLERGIES: See Below VITALS: See Below PHYSICAL EXAMINATION: GENERAL: Patient is awake alert in no acute distress patient is resting comfortably and showing no signs of anxiety EYES: The conjunctivae are clear. The pupils are round and reactive. EARS, NOSE, MOUTH AND THROAT: The nose is without any evidence of any deformity. NECK: The neck is nontender and supple. RESPIRATORY: Normal respiratory effort is noted there is no evidence of wheezing rhonchi or rales CARDIOVASCULAR: Irregular heart sounds were noted to auscultation. There is no definite murmur. GASTROINTESTINAL: The abdomen is soft. Abdomen is nontender. PELVIS: The Pelvis is stable. No tenderness to palpation is noted. BACK: No midline tenderness or or step-off noted range of motion in flexion extension as well as rotation no signs of muscle spasm noted MUSCULOSKELETAL/EXTREMITIES: There is no evidence of gross deformity full range of motion is noted in the hips and shoulders. SKIN: There is no obvious evidence of any rash. There are no petechiae, pallor or cyanosis noted. NEUROLOGIC: Patient is awake alert and oriented x3 MEDICAL DECISION MAKING: The patient is a 67-year-old male who presented to the emergency department for an evaluation of palpitations. He was found to be in atrial fibrillation with RVR. The patient was not hypoxic. He was treated with IV fluids IV magnesium and IV beta-blockers. On reevaluation he was significantly improved. I discussed the patient's condition with the on-call [facility] senior applications architect. Ultimately the patient was felt to be a better candidate for inpatient management as well as possible cardioversion after 24 hours. He does take blood thinners. The patient has a history of alcohol use in the past though he was also treated with thiamine. I discussed his condition with the on-call [facility] hospitalist. They have agreed to evaluate the patient in the emergency department for further management and disposition. Triage Nursing notes reviewed. Prior medical records reviewed Vital Signs: reviewed and remarkable for tachycardia.. Differential diagnosis: Premature contractions, electrolyte abnormality, cardiac dysrhythmia, thyroid dysfunction, pulmonary embolism, infection, gastrointestinal, as well as other pathologies. ER treatment provided: See below Diagnostics interpreted by me: ECG: EKG was obtained in the emergency department. My interpretation is atrial fibrillation at [address] and T wave abnormalities were noted. There were no PVCs. This was compared to a tracing from May 26, 2022. Normal sinus rhythm has been replaced with atrial fibrillation. Cardiac Monitoring: An order was placed for continuous cardiac monitoring. The monitor shows a rate of 95 bpm with atrial fibrillation Laboratory studies: As stated above and show below. Imaging studies: See below. Radiographic imaging was reviewed by myself Consultation(s): I discussed this case with Dr. Pope who is on-call for [facility] cardiology Past Med/Surg History Medical History (Updated 01/17/23 @ 18:12 by Praveen Horton DO) Anxiety Atrial fibrillation dx 2-3 years - on eliquis - [facility] Change in bowel movement HTN (hypertension) Neuropathy Osteoarthritis Palpitations Restless leg syndrome Stroke 8 years ago - right sided weakness - 2/2 htn, smoking - on eliquis Surgical History H/O hemorrhoidectomy History of colonoscopy with polypectomy History of surgery lipoma removal History of tooth extraction Family History Other No family history of adverse response to anesthesia Social History Smoking Status: Never smoker Cigarettes Per Day: 15; Second Hand Exposure: No; Hx Alcohol Use: Yes Alcohol type: other Hx Substance Use: No Preferred Language: Czech Communication Ability: Effective [employer] Architect Required: No Beliefs That Will Affect Care: None Current Living Situation: Family, Homeless and Other Current Living Situation Comment: pt currently homeless but is living with his brother and his son's Feels Safe at Home: Yes Safety Concerns: Feels Safe At This Time Assistive Devices: Glasses Allergies Allergies Allergy/AdvReac Type Severity Reaction Status Date / Time shellfish derived Allergy Anaphylaxis Verified 01/17/23 17:04 Home Meds Home Medications Medication Instructions Recorded Confirmed lisinopril 10 mg tablet 10 mg PO QAM 11/01/19 01/17/23 multivitamin 1 tab PO QAM 12/19/19 01/17/23 naproxen sodium 220 mg tablet 440 mg PO BID PRN Pain 02/20/21 01/17/23 metoprolol succinate 25 mg 12.5 mg PO QAM 01/17/23 01/17/23 tablet,extended release 24 hr Previous Rx's Medication Instructions Recorded apixaban 5 mg tablet (Eliquis) 5 mg PO BID #60 tabs 05/02/20 ropinirole 0.5 mg tablet 2 mg PO HS #0 tabs 05/02/20 Results & Data (ED) Vital Signs Vital Signs - 24 hr 01/17/23 12:41 01/17/23 13:00 01/17/23 13:12 Temperature 36.8 C Temperature Source Temporal Artery Scan Pulse Rate 119 H 121 H Pulse Rate [Apical] 103 H Respiratory Rate 20 98 H Respiratory Effort / Characteristics Non-Labored Spontaneous Non-Labored Spontaneous Respiratory Depth Normal Normal Blood Pressure 116/81 Blood Pressure [Right Arm] 115/77 Blood Pressure Mean 92 Blood Pressure Mean [Right Arm] 89 Blood Pressure Position Right Lateral Pulse Oximetry 98 97 Oxygen Delivery Method Room Air Room Air Sepsis Recent Fever Within 48 Hours No Sepsis New/Unexplained Change in Mental Status No Sepsis Action Taken by Nursing No Action Required 01/17/23 13:19 01/17/23 14:00 01/17/23 14:30 Temperature Temperature Source Pulse Rate 90 113 H Pulse Rate [Apical] 98 H Respiratory Rate 24 21 19 Respiratory Effort / Characteristics Non-Labored Spontaneous Respiratory Depth Normal Blood Pressure Blood Pressure [Right Arm] 111/67 Blood Pressure Mean Blood Pressure Mean [Right Arm] 81 Blood Pressure Position Pulse Oximetry Oxygen Delivery Method Sepsis Recent Fever Within 48 Hours Sepsis New/Unexplained Change in Mental Status Sepsis Action Taken by Nursing 01/17/23 15:28 Temperature Temperature Source Pulse Rate 104 H Pulse Rate [Apical] Respiratory Rate 19 Respiratory Effort / Characteristics Respiratory Depth Blood Pressure 112/79 Blood Pressure [Right Arm] Blood Pressure Mean 90 Blood Pressure Mean [Right Arm] Blood Pressure Position Pulse Oximetry 96 Oxygen Delivery Method Room Air Sepsis Recent Fever Within 48 Hours Sepsis New/Unexplained Change in Mental Status Sepsis Action Taken by Prison Medications Current Medication List: was personally reviewed by me Laboratory Data Attestation: I reviewed the patient's lab results. 01/17/23 12:52 01/17/23 12:52 Lab Results 01/17/23 01/17/23 01/17/23 Range/Units 12:52 12:52 12:52 WBC 7.52 (4.8-10.8) K/ul RBC 5.15 (4.70-6.10) M/uL Hgb 15.6 (14.0-18.0) g/dl Hct 46.3 (42.0-52.0) % MCV 89.9 (80.0-100.0) fL MCH 30.3 (25.0-34.0) pg MCHC 33.7 (32.0-36.0) g/dL RDW Std Deviation 43.5 (36.4-46.3) fL RDW Coeff of Alejandro 13.1 (11.5-14.5) % Plt Count 241 (130-400) K/uL MPV 11.7 (9.4-12.4) fL Immature Gran % (Auto) 1.5 % Neut % (Auto) 62.2 % Lymph % (Auto) 26.2 % Stephenson % (Auto) 7.2 % Eos % (Auto) 2.5 % Baso % (Auto) 0.4 % Neut # (Auto) 4.68 (1.40-6.50) K/uL Lymph # (Auto) 1.97 (1.2-3.4) K/uL Stephenson # (Auto) 0.54 (0.11-0.59) K/uL Eos # (Auto) 0.19 (0-0.50) K/uL Baso # (Auto) 0.03 (0-0.2) K/uL Immature Gran # (Auto) 0.11 (0.01-0.20) K/uL PT 10.9 (9.0-12.0) Seconds INR 1.0 (0.9-1.1) APTT 26.2 (21.0-31.0) Seconds PTT Ratio 1.0 Sodium 137 (136-145) mmol/L Potassium 4.1 (3.5-5.1) mmol/L Chloride 103 (98-107) mmol/L Carbon Dioxide 30 (21-32) mmol/L Anion Gap 4 (3-11) BUN 18 (6-23) mg/dl Creatinine 1.15 (0.6-1.4) mg/dl Est Cr Clr Drug Dosing 64.1 ml/min Est GFR ( Amer) 76.4 ml/min Est GFR (Non-Af Amer) 65.9 ml/min BUN/Creatinine Ratio 15.7 (10-20) Glucose 127 H (70-99(Fasting)) mg/dl Calcium 9.5 (8.6-10.3) mg/dl Magnesium (1.7-2.4) mg/dl Total Bilirubin 0.4 (0.2-1.0) mg/dl AST 11 L (13-39) U/L ALT 20 (7-52) U/L Alkaline Phosphatase 47 (34-104) U/L Troponin I High Sens 3.9 (0-20) pg/ml Total Protein 6.6 (6.0-8.3) gm/dl Albumin 4.1 (3.4-5.0) gm/dl Globulin 2.5 (2.5-4.0) gm/dl Albumin/Globulin Ratio 1.6 (0.9-2) SARS-CoV-2, RNA, NAAT (NEGATIVE) 01/17/23 01/17/23 Range/Units 12:52 15:16 WBC (4.8-10.8) K/ul RBC (4.70-6.10) M/uL Hgb (14.0-18.0) g/dl Hct (42.0-52.0) % MCV (80.0-100.0) fL MCH (25.0-34.0) pg MCHC (32.0-36.0) g/dL RDW Std Deviation (36.4-46.3) fL RDW Coeff of Alejandro (11.5-14.5) % Plt Count (130-400) K/uL MPV (9.4-12.4) fL Immature Gran % (Auto) % Neut % (Auto) % Lymph % (Auto) % Stephenson % (Auto) % Eos % (Auto) % Baso % (Auto) % Neut # (Auto) (1.40-6.50) K/uL Lymph # (Auto) (1.2-3.4) K/uL Stephenson # (Auto) (0.11-0.59) K/uL Eos # (Auto) (0-0.50) K/uL Baso # (Auto) (0-0.2) K/uL Immature Gran # (Auto) (0.01-0.20) K/uL PT (9.0-12.0) Seconds INR (0.9-1.1) APTT (21.0-31.0) Seconds PTT Ratio Sodium (136-145) mmol/L Potassium (3.5-5.1) mmol/L Chloride (98-107) mmol/L Carbon Dioxide (21-32) mmol/L Anion Gap (3-11) BUN (6-23) mg/dl Creatinine (0.6-1.4) mg/dl Est Cr Clr Drug Dosing ml/min Est GFR ( Amer) ml/min Est GFR (Non-Af Amer) ml/min BUN/Creatinine Ratio (10-20) Glucose (70-99(Fasting)) mg/dl Calcium (8.6-10.3) mg/dl Magnesium 2.0 (1.7-2.4) mg/dl Total Bilirubin (0.2-1.0) mg/dl AST (13-39) U/L ALT (7-52) U/L Alkaline Phosphatase (34-104) U/L Troponin I High Sens (0-20) pg/ml Total Protein (6.0-8.3) gm/dl Albumin (3.4-5.0) gm/dl Globulin (2.5-4.0) gm/dl Albumin/Globulin Ratio (0.9-2) SARS-CoV-2, RNA, NAAT NEGATIVE (NEGATIVE) Administered Medications Discontinued Medications Sodium Chloride (Nss 1000ml) 1,000 mls @ 999 mls/hr IV .[id number] ONE Stop: 01/17/23 14:05 Last Infusion: 01/17/23 14:41 Dose: 0 mls/hr Documented By: Admin: 01/17/23 13:18 Dose: 999 mls/hr Documented By: VICTORIA Thiamine HCl 200 mg/ Sodium (Chloride) 52 mls @ 210 mls/hr IV NOW STA Stop: 01/17/23 13:19 Last Infusion: 01/17/23 14:41 Dose: 0 mls/hr Documented By: Admin: 01/17/23 14:10 Dose: 210 mls/hr Documented By: LOW Magnesium Sulfate/Dextrose (Magnesium Sulfate / D5w) 1 gm in 100 mls @ 100 mls/hr IV NOW STA Stop: 01/17/23 14:05 Last Infusion: 01/17/23 14:16 Dose: 0 mls/hr Documented By: Admin: 01/17/23 13:15 Dose: 100 mls/hr Documented By: VICTORIA Metoprolol Succinate (Metoprolol Succ 25mg Ext Rel Tab) 25 mg PO NOW STA Stop: 01/17/23 15:41 Last Admin: 01/17/23 16:23 Dose: 25 mg Documented By: JOSE Metoprolol Tartrate (Metoprolol Tartrate 1 Mg/Ml Vial) 5 mg IV NOW STA Stop: 01/17/23 13:06 Last Admin: 01/17/23 13:14 Dose: 5 mg Documented By: VICTORIA Imaging Data Attestation: I personally reviewed and interpreted this imaging study as follows: My Impression: 1 view chest x-ray was obtained in the emergency department. My interpretation is no definite infiltrate, final report below. Radiologist's Impression: Chest X-Ray 01/17/23 12:47 XR chest 1V portable HISTORY: 67 years-old Male Chest pain, nonspecific acute chest pain COMPARISON: 12/30/2021 TECHNIQUE: AP view of the chest FINDINGS: Calcified granuloma the lateral right lung base. Cardiac mediastinal and hilar silhouettes are within normal limits. No pneumothorax, pleural effusion, airspace consolidation or pulmonary edema. Bones of the chest appear grossly intact. Healed chronic mid left clavicular fracture deformity. IMPRESSION: No acute process. ACT 112: Negative or not required by law. The above report was generated using voice recognition software. It may contain grammatical, syntax or spelling errors. Electronically signed by: Anderson Roberts M.D. 01/17/2023 1:21 PM Discharge Plan Visit Data Chief Complaint: Cardiac Assessment Stated Complaint: A FIB ED Provider: Praveen Horton Discharge Problem: Atrial fibrillation with rapid ventricular response, Heart palpitations, Generalized muscle weakness Patient Disposition: Admitted As Inpatient Discharge Instructions Interventions: ED Discharge Assessment Last Done: 01/17/23 16:55
[2023-01-17 13:22] LABS: Basophils # (auto) 0.03 K/uL (0-0.2); Basophils % (auto) 0.4 %; Eosinophils # (auto) 0.19 K/uL (0-0.50); Eosinophils % (auto) 2.5 %; Hematocrit (blood only) 46.3 % (42.0-52.0); Hemoglobin 15.6 g/dl (14.0-18.0); Immature Granulocytes # (auto) 0.11 K/uL (0.01-0.20); Immature Granulocytes % (auto) 1.5 %; Lymphocytes # (auto) 1.97 K/uL (1.2-3.4); Lymphocytes % (auto) 26.2 %; Mean Corpuscular Hemoglobin 30.3 pg (25.0-34.0); Mean Corpuscular Hgb Conc 33.7 g/dL (32.0-36.0); Mean Corpuscular Volume 89.9 fL (80.0-100.0); Mean Platelet Volume 11.7 fL (9.4-12.4); Monocytes # (auto) 0.54 K/uL (0.11-0.59); Monocytes % (auto) 7.2 %; Neutrophils # (auto) 4.68 K/uL (1.40-6.50); Neutrophils % (auto) 62.2 %; Platelet Count 241 K/uL (130-400); RDW Coefficient of Variation 13.1 % (11.5-14.5); RDW Standard Deviation 43.5 fL (36.4-46.3); Red Blood Count 5.15 M/uL (4.70-6.10); White Blood Count 7.52 K/ul (4.8-10.8)
--- NOTE | 2023-01-17 13:23 | XRay Report ---
XR chest 1V portable HISTORY: 67 years-old Male Chest pain, nonspecific acute chest pain COMPARISON: 12/30/2021 TECHNIQUE: AP view of the chest FINDINGS: Calcified granuloma the lateral right lung base. Cardiac mediastinal and hilar silhouettes are within normal limits. No pneumothorax, pleural effusion, airspace consolidation or pulmonary edema. Bones o f the chest appear grossly intact. Healed chronic mid left clavicular fracture deformity. IMPRESSION: No acute process. ACT 112: Negative or not required by law. The above report was generated using voice recognition software. It may contain grammatical, syntax o r spelling errors. Electronically signed by: Anderson Roberts M.D. 01/17/2023 1:21 PM
[2023-01-17 13:36] LABS: Albumin Globulin Ratio 1.6 (0.9-2); Albumin Level 4.1 gm/dl (3.4-5.0); BUN Creatinine Ratio 15.7 (10-20); Bilirubin,Total 0.4 mg/dl (0.2-1.0); Calcium 9.5 mg/dl (8.6-10.3); Creatinine Clr Calc Pharmacy 64.1 ml/min; Est GFR (African American) 76.4 ml/min; Est GFR (Non-African American) 65.9 ml/min; Globulin 2.5 gm/dl (2.5-4.0); Potassium 4.1 mmol/L (3.5-5.1); Total Protein 6.6 gm/dl (6.0-8.3)
[2023-01-17 13:41] LABS: Troponin I High Sensitivity 3.9 pg/ml (0-20)
[2023-01-17 13:49] LABS: Partial Thromboplastin Time 26.2 Seconds (21.0-31.0); Prothrombin Time 10.9 Seconds (9.0-12.0)
--- NOTE | 2023-01-17 15:37 | History & Physical Report ---
Date of Service January 17, 2023 Assessment & Plan (1) Atrial fibrillation with RVR: Plan: -Admit to the PCU on tele -The patient is currently afebrile, hemodynamically stable, and stable on RA -Patient typically has paroxysmal afib which resolves spontaneously, has had 2-3 days on ongoing heart palpitations, found to be in afib RVR today with HR in the 100-120's -S/P 1L NSS, 1gm IV mag, and 5 mg IV lopressor in the ED, HR still in the low 100's -Patient is currently on 12.5 mg PO Metoprolol Succinate daily since his symptoms started on 01/14, unsure of why he is on such a small dose, he does mention he has a previous history of slower HR when he was a heavy drinker -Will given another dose of 25 mg PO metoprolol succinate on admission, then continue with 25 mg PO qam for now, continue to monitor on tele -Cardiology consult placed as the ED spoke with Dr. Pope who recommended admission for possible cardioversion after 24 hours of monitoring -Continue Eliquis BID, will make NPO except meds at midnight -Will add prn IV lopressor for sustained HR > 120 with communication to contact chyron operator provider if multiple doses are required -Will obtain TTE for further evaluation -BL SCD's and home Eliquis for DVT PPX -AM CBC, BMP, Mag, PT/IRN (2) Atrial fibrillation: Plan: -See afib rvr (3) HTN (hypertension): Plan: -Stable -Hold lisinopril for now to avoid hypotension with increased metoprolol dosing (4) History of stroke: Plan: -Thought to be due to previously undiagnosed afib -Continue eliquis (5) Alcohol abuse: Plan: -Previously drank a fifth-handle q2-3 days prior to his stroke -Currently drinks approximately 2 beers daily -Last drink was on 01/14, currently denies any withdrawal symptoms -Will start AWSS protocol to monitor and treat for withdrawal -Patient is S/P 200 mg IV thiamine in the ED -Continue home multivitamin Plan The patient was discussed with Dr. Guzman at the time of the admission History of Present Illness Chief Complaint: Heart palpitations Primary Care Provider: [facility] Aristides is a 67 year old male with a PMH significant for paroxysmal afib on eliquis, previous CVA with residual right-sided weakness, restless leg syndrome, HTN who presented to the [facility] ED on 01/17/23 with a chief complaint of 2-3 days of heart palpitations. In the ED the patient was found to being in afib RVR with HR in the low 100's-120's, otherwise stable vitals. Labs including CBC, CMP, and high sen trop were WNL. Chest xray was read as "No acute process.". Prior to admission the patient was given 1gm IV mag, 5 mg IV lopressor, 1L NSS, and 200 mg IV thiamine. At the time of the exam the patient was sitting in bed in no acute distress. He states that he can typically feel when he goes into afib as he will experience heart palpitations. He states that this occurred more frequently when he was a heavy drinker in the past, he currently drinks 2 beers daily. On 01/14 he noticed that he was back in afib with increased HR. He experienced some heart palpitations with a slight amount of central chest tightness but was otherwise asymptomatic. He states that he has a prescription for 12.5 mg PO Metoprolol Succinate to be used prn for persistent aifb written by his [facility]. Since 01/14 he has been taking the 12.5 mg PO daily without relief. His last drink was on 01/14 as he thought the alcohol may be contributing, he denies a history of serious alcohol withdrawal or history of withdrawal seizures. He currently denies any withdrawal symptoms. He has been taking his Eliquis BID without any recently missed doses. He is a full code and would want his Son, Prince, to make medical decisions for him if he could not make them himself. Please refer to Dr. Guzman's attestation for any changes to the treatment plan Allergies Allergy/AdvReac Type Severity Reaction Status Date / Time shellfish derived Allergy Anaphylaxis Verified 01/17/23 17:04 Home Medications Medication Instructions Recorded Confirmed Type lisinopril 10 mg tablet 10 mg PO QAM 11/01/19 01/17/23 History multivitamin 1 tab PO QAM 12/19/19 01/17/23 History apixaban 5 mg tablet (Eliquis) 5 mg PO BID #60 tabs 05/02/20 01/17/23 Rx ropinirole 0.5 mg tablet 2 mg PO HS #0 tabs 05/02/20 01/17/23 Rx naproxen sodium 220 mg tablet 440 mg PO BID PRN Pain 02/20/21 01/17/23 History metoprolol succinate 25 mg 12.5 mg PO QAM 01/17/23 01/17/23 History tablet,extended release 24 hr Past Med/Surg History Medical History (Updated 01/17/23 @ 18:12 by Praveen Horton DO) Anxiety Atrial fibrillation dx 2-3 years - on eliquis - [facility] Change in bowel movement HTN (hypertension) Neuropathy Osteoarthritis Palpitations Restless leg syndrome Stroke 8 years ago - right sided weakness - 2/2 htn, smoking - on eliquis Surgical History H/O hemorrhoidectomy History of colonoscopy with polypectomy History of surgery lipoma removal History of tooth extraction Family History Other No family history of adverse response to anesthesia Social History Smoking Status: Never smoker Cigarettes Per Day: 15; Second Hand Exposure: No; Hx Alcohol Use: Yes Alcohol type: other Hx Substance Use: No Preferred Language: Brazilian Communication Ability: Effective Pegger Required: No Beliefs That Will Affect Care: None Current Living Situation: Family, Homeless and Other Current Living Situation Comment: pt currently homeless but is living with his brother and his son's Feels Safe at Home: Yes Safety Concerns: Feels Safe At This Time Assistive Devices: Glasses Physical Exam Physical Exam: Physical Exam: General: In no acute distress, stated age, well-nourished, good hygiene HEENT: Normocephalic, atraumatic, no scleral icterus, pupils around round, symmetrical, and reactive to light, moist mucus membranes, trachea midline, no thyromegaly Chest/Pulm: No respiratory distress, symmetrical chest expansion, clear breath sounds throughout Cardiac: irregular rate and rhythm, systolic murmur noted Abdomen: Negative for ascites and bruising, normoactive bowel sounds, soft, non-tender to palpation throughout Musculoskeletal: Symmetrical and without signs of acute trauma, upper and lower extremities with full ROM, no atrophy, spasticity, or flaccidity Extremities: Radial, dorsalis pedis, and posterior tibial pulses are intact and symmetrical, no edema noted in the BL LE's Skin: Warm, dry, no rashes , lesions, or scars noted Neuro: Alert and oriented to person, place, month, year, and president, no focal defects, CN II-XII tested and intact, finger to nose test negative, no tremors noted Psych: No acute distress, calm and cooperative during the exam Results & Data Results & Data Vital Signs (Past 12 Hours) Vital Signs Temp Pulse Pulse Resp BP BP Pulse Ox 01/17/23 14:30 113 H 19 01/17/23 14:00 90 21 01/17/23 13:19 98 H 24 111/67 01/17/23 13:12 121 H 01/17/23 13:00 103 H 98 H 115/77 97 01/17/23 12:41 36.8 C 119 H 20 116/81 98 O2 Del Method 01/17/23 14:30 01/17/23 14:00 01/17/23 13:19 01/17/23 13:12 01/17/23 13:00 Room Air 01/17/23 12:41 Room Air Laboratory Results Abnormal lab results 01/17/23 Range/Units 12:52 Glucose 127 H (70-99(Fasting)) mg/dl AST 11 L (13-39) U/L Diagnostic Findings Chest X-Ray 01/17/23 12:47 XR chest 1V portable HISTORY: 67 years-old Male Chest pain, nonspecific acute chest pain COMPARISON: 12/30/2021 TECHNIQUE: AP view of the chest FINDINGS: Calcified granuloma the lateral right lung base. Cardiac mediastinal and hilar silhouettes are within normal limits. No pneumothorax, pleural effusion, airspace consolidation or pulmonary edema. Bones of the chest appear grossly intact. Healed chronic mid left clavicular fracture deformity. IMPRESSION: No acute process. ACT 112: Negative or not required by law. The above report was generated using voice recognition software. It may contain grammatical, syntax or spelling errors. Electronically signed by: Anderson Roberts M.D. 01/17/2023 1:21 PM ECG Additional Comments: Poor data quality, interpretation may be adversely affected Atrial fibrillation with rapid ventricular response Abnormal ECG When compared with ECG of 26-MAY-2022 17:14, Atrial fibrillation has replaced Sinus rhythm Vent. rate has increased BY 38 BPM Code Status & VTE Plan Code Status Full code VTE Prophylaxis Plan VTE Prophylaxis will be ordered: Yes Supervising Physician Co-Signing Physician Notes Patient seen and examined, chart reviewed, case discussed with Fili Mao PA-C and I agree with the assessment and plan as above except as otherwise noted Labs and images reviewed Stephen is a 67-year-old male with history of A-fib, alcohol use, prior CVA with right-sided weakness, restless leg syndrome who presents with 2 to 3 days of fatigue and pain in the backs of his arms. He reports this fatigue and pain is how his A-fib presents, he generally does not feel fluttering in his chest. He does not have any chest pain or chest pressure at time of assessment. Does still feel like he is having arm and leg cramps. Lungs are clear, heart rate is mildly tachycardic and irregular, radial and PT pulses are intact with brisk cap refill in hands and feet. Agree with assessment and plan above, pending cardiology visit in the morning. He is anticoagulated on Eliquis, and is reasonable to pursue cardioversion as he is very symptomatic. Defer flecainide for rhythm maintenance to cardiology follow-up. Patient is doing well with metoprolol for rate control, IV metoprolol on-call for RVR greater than 120. TTE pending. Agree with assessment and plan above PG Care Time/CCT Total # of Minutes Spent Total Time Spent with Patient: Total time spent is greater than 50% in coordination of care (as documented) at patient's floor/unit and/or counseling patient: Coding [place] [address] INT INP/OBS CARE 3/75MIN Patient Type Established Medical Decision Making High Complexity Diagnoses Atrial fibrillation with RVR I48.91 Atrial fibrillation I48.91 HTN (hypertension) I10 Hypertension type: essential hypertension History of stroke Z86.73 Alcohol abuse F10.10 (3) HTN (hypertension) Hypertension type: essential hypertension Qualified Code(s): I10 - Essential (primary) hypertension
[2023-01-17] MEDS ORDERED: METOPROLOL SUCC 25MG EXT REL TAB PO STA (15:40)
[2023-01-17] MEDS ORDERED: LORazepam 2 MG/1 ML VIAL IV PRN (15:58)
[2023-01-17] MEDS ORDERED: METOPROLOL TARTRATE 1 MG/ML VIAL IV PRN (16:46)
--- NOTE | 2023-01-17 17:51 | Electrocardiogram Report ---
Test Reason : Blood Pressure : / mmHG Vent. Rate : 106 BPM Atrial Rate : 394 BPM P-R Int : 000 ms QRS Dur : 080 ms QT Int : 322 ms P-R-T Axes : 000 055 020 degrees QTc Int : 427 ms Poor data quality, interpretation may be adversely affected Atrial fibrillation with rapid ventricular response Abnormal ECG When compared with ECG of 26-MAY-2022 17:14, Atrial fibrillation has replaced Sinus rhythm Vent. rate has increased BY 38 BPM Confirmed by Jus Pope ([id number]) on 01/17/2023 5:51:36 PM Referred By: REFERRED SELF Confirmed By:Puma Pope
[2023-01-17] MEDS ORDERED: Nursing to Pharmacy Communication SCH (18:30)
[2023-01-17] MEDS: APIXABAN 5 MG TABLET PO SCH (19:57)
[2023-01-17] MEDS: rOPINIRole HCL 2 MG TABLET PO SCH (19:57)
[2023-01-17] MEDS ORDERED: rOPINIRole HCL 2 MG TABLET PO SCH (21:00)
[2023-01-17] MEDS ORDERED: LORazepam 0.5 MG TAB PO ONE (21:00)
[2023-01-18 07:22] LABS: Hematocrit (blood only) 43.7 % (42.0-52.0); Hemoglobin 15.1 g/dl (14.0-18.0); Mean Corpuscular Hemoglobin 30.8 pg (25.0-34.0); Mean Corpuscular Hgb Conc 34.6 g/dL (32.0-36.0); Mean Platelet Volume 11.3 fL (9.4-12.4); Platelet Count 213 K/uL (130-400); RDW Coefficient of Variation 13.2 % (11.5-14.5); Red Blood Count 4.91 M/uL (4.70-6.10); White Blood Count 5.69 K/ul (4.8-10.8)
[2023-01-18 07:32] LABS: BUN Creatinine Ratio 22.4 (10-20); Calcium 8.8 mg/dl (8.6-10.3); Est GFR (African American) 92.7 ml/min; Potassium 4.2 mmol/L (3.5-5.1)
[2023-01-18 07:48] LABS: Prothrombin Time 10.9 Seconds (9.0-12.0)
--- NOTE | 2023-01-18 08:54 | XCELERA ---
[id number]
[2023-01-18] MEDS: METOPROLOL SUCC 25MG EXT REL TAB PO SCH (09:25)
[2023-01-18] MEDS: APIXABAN 5 MG TABLET PO SCH ×2 (09:25→20:36)
[2023-01-18] MEDS: MULTIVITAMIN TAB PO SCH (09:26)
--- NOTE | 2023-01-18 10:12 | Cardiology Consultation ---
Date of Consultation January 18, 2023 Assessment & Plan (1) Atrial fibrillation with rapid ventricular response: (2) Mitral regurgitation: Plan 1. Atrial fibrillation: He is well known diagnosis of paroxysmal atrial fibrillation. This episode is more prolonged than normal. This may represent the normal progression of disease to more frequent and longer episodes. However, overall frequency is still quite low. Given his persistent symptoms we will plan a cardioversion. For recurrent prolonged episodes we could consider a pill in the pocket approach with flecainide. For more frequent episodes daily antiarrhythmic therapy or catheter based therapy can be entertained. No obvious precipitant for his atrial fibrillation in this case. Not drinking heavily. History of sleep apnea which appears to have resolved. Treated for high blood pressure. Based on his history he will continue systemic anticoagulation indefinitely. 2. Mitral regurgitation: Mild. This can be followed over time. History of Present Illness Reason for Consultation: Atrial fibrillation Requesting Physician: Daylin Attending Physician: Shakir Muller MD History of Present Illness The patient is a 67-year-old gentleman with a history of paroxysmal atrial fibrillation and prior TIA presented to the [facility] with persistent symptoms of palpitation. Patient's history dates back many years when he presented with a TIA. He was subsequently diagnosed with atrial fibrillation. He states that over the years he has had some episodes described as atrial fibrillation which generally last 12 hours or less. These tend to happen infrequently. He states that they curiously occurred more frequently around December her January but generally speaking once or twice annually. He is aware of palpitations and has some element of reduced exercise tolerance. However, no severe symptoms. Perhaps some mild dyspnea with activity. No associated chest pain. Three days ago he began to notice his typical palpitation. The symptoms however did not resolve within the typical 12 hour time frame. Patient felt that if he exercise perhaps this would terminate the episode any actually went to the gym and did cardiovascular exercise. This was more difficult than usual but did not terminate his symptoms. He then she presented to the emergency room for evaluation. In general he is an active individual who exercises regularly. As noted he did not report exertional symptoms of dyspnea or chest pain. No dizziness or lightheadedness. No history of syncope. Allergies Allergy/AdvReac Type Severity Reaction Status Date / Time shellfish derived Allergy Anaphylaxis Verified 01/17/23 17:04 Home Medications Medication Instructions Recorded Confirmed Type lisinopril 10 mg tablet 10 mg PO QAM 11/01/19 01/17/23 History multivitamin 1 tab PO QAM 12/19/19 01/17/23 History apixaban 5 mg tablet (Eliquis) 5 mg PO BID #60 tabs 05/02/20 01/17/23 Rx ropinirole 0.5 mg tablet 2 mg PO HS #0 tabs 05/02/20 01/17/23 Rx naproxen sodium 220 mg tablet 440 mg PO BID PRN Pain 02/20/21 01/17/23 History metoprolol succinate 25 mg 12.5 mg PO QAM 01/17/23 01/17/23 History tablet,extended release 24 hr Patient History Medical History (Updated 01/18/23 @ 10:10 by Jus Pope MD) Anxiety Atrial fibrillation dx 2-3 years - on eliquis [facility] Change in bowel movement HTN (hypertension) Neuropathy Osteoarthritis Palpitations Restless leg syndrome Stroke 8 years ago - right sided weakness - 2/2 htn, smoking - on eliquis Surgical History H/O hemorrhoidectomy History of colonoscopy with polypectomy History of surgery lipoma removal History of tooth extraction Family History Other No family history of adverse response to anesthesia Social History Smoking Status: Never smoker Cigarettes Per Day: 15; Second Hand Exposure: No; Hx Alcohol Use: Yes Alcohol type: other Hx Substance Use: No Preferred Language: Bulgarian Communication Ability: Effective Art Class Model Required: No Beliefs That Will Affect Care: None Current Living Situation: Family, Homeless and Other Current Living Situation Comment: pt currently homeless but is living with his brother and his son's Feels Safe at Home: Yes Safety Concerns: Feels Safe At This Time Assistive Devices: Glasses Review of Systems Review of Systems: Per HPI. Patient under more stress recently as he appears to be changing residence as. Physical Exam Physical Exam: The patient is alert and oriented. Mood and affect appeared normal. He answered all questions appropriately. HEENT: Pupils are equal and reactive to light and accommodation. Extraocular movements are intact. The sclerae are anicteric. Neuro: Cranial nerves intact Neck: Patient's neck is supple. He has palpable carotid pulses bilaterally without bruits on auscultation. There is no evidence of jugular venous distention. The thyroid is not enlarged. Lungs: Clear to auscultation bilaterally. He has good air movement without use of accessory muscles. No rales wheezes or rhonchi. Cardiac: Heart demonstrates an irregular rate and rhythm. Normal S1 and S2. No murmurs on examination. Pulses: The patient has palpable radial pulses bilaterally that are equal in intensity Extremities: There was no evidence of hypoperfusion. There is no cyanosis or clubbing. There is no edema. Skin: I did not appreciate any rashes on examination today. Results & Data Vital Signs (Past 12 Hours) Vital Signs Temp Pulse Pulse Resp BP Pulse Ox O2 Del Method 01/18/23 09:22 99 H 117/79 01/18/23 07:35 36.3 C L 76 16 109/80 94 Room Air 01/18/23 02:56 36.3 C L 59 L 16 112/78 94 Room Air 01/17/23 22:33 36.9 C 71 19 90/61 L 95 Room Air Laboratory Results Abnormal Lab Results 01/17/23 01/17/23 01/17/23 12:52 12:52 12:52 WBC 7.52 RBC 5.15 Hgb 15.6 Hct 46.3 MCV 89.9 MCH 30.3 MCHC 33.7 RDW Std Deviation 43.5 RDW Coeff of Alejandro 13.1 Plt Count 241 MPV 11.7 Immature Gran % (Auto) 1.5 Neut % (Auto) 62.2 Lymph % (Auto) 26.2 [place] % (Auto) 7.2 Eos % (Auto) 2.5 Baso % (Auto) 0.4 Neut # (Auto) 4.68 Lymph # (Auto) 1.97 [place] # (Auto) 0.54 Eos # (Auto) 0.19 Baso # (Auto) 0.03 Immature Gran # (Auto) 0.11 PT 10.9 INR 1.0 APTT 26.2 PTT Ratio 1.0 Sodium 137 Potassium 4.1 Chloride 103 Carbon Dioxide 30 Anion Gap 4 BUN 18 Creatinine 1.15 Est Cr Clr Drug Dosing 64.1 Est GFR ( Amer) 76.4 Est GFR (Non-Af Amer) 65.9 BUN/Creatinine Ratio 15.7 Glucose 127 H Calcium 9.5 Magnesium Total Bilirubin 0.4 AST 11 L ALT 20 Alkaline Phosphatase 47 Troponin I High Sens 3.9 Total Protein 6.6 Albumin 4.1 Globulin 2.5 Albumin/Globulin Ratio 1.6 SARS-CoV-2, RNA, NAAT 01/17/23 01/17/23 01/18/23 12:52 15:16 07:00 WBC 5.69 RBC 4.91 Hgb 15.1 Hct 43.7 MCV 89.0 MCH 30.8 MCHC 34.6 RDW Std Deviation 43.0 RDW Coeff of Alejandro 13.2 Plt Count 213 MPV 11.3 Immature Gran % (Auto) Neut % (Auto) Lymph % (Auto) [place] % (Auto) Eos % (Auto) Baso % (Auto) Neut # (Auto) Lymph # (Auto) [place] # (Auto) Eos # (Auto) Baso # (Auto) Immature Gran # (Auto) PT INR APTT PTT Ratio Sodium Potassium Chloride Carbon Dioxide Anion Gap BUN Creatinine Est Cr Clr Drug Dosing Est GFR ( Amer) Est GFR (Non-Af Amer) BUN/Creatinine Ratio Glucose Calcium Magnesium 2.0 Total Bilirubin AST ALT Alkaline Phosphatase Troponin I High Sens Total Protein Albumin Globulin Albumin/Globulin Ratio SARS-CoV-2, RNA, NAAT NEGATIVE 01/18/23 01/18/23 07:00 07:00 WBC RBC Hgb Hct MCV MCH MCHC RDW Std Deviation RDW Coeff of Alejandro Plt Count MPV Immature Gran % (Auto) Neut % (Auto) Lymph % (Auto) [place] % (Auto) Eos % (Auto) Baso % (Auto) Neut # (Auto) Lymph # (Auto) [place] # (Auto) Eos # (Auto) Baso # (Auto) Immature Gran # (Auto) PT 10.9 INR 1.0 APTT PTT Ratio Sodium 140 Potassium 4.2 Chloride 108 H Carbon Dioxide 27 Anion Gap 5 BUN 22 Creatinine 0.98 Est Cr Clr Drug Dosing 79.0 Est GFR ( Amer) 92.7 Est GFR (Non-Af Amer) 80.0 BUN/Creatinine Ratio 22.4 H Glucose 96 Calcium 8.8 Magnesium 2.0 Total Bilirubin AST ALT Alkaline Phosphatase Troponin I High Sens Total Protein Albumin Globulin Albumin/Globulin Ratio SARS-CoV-2, RNA, NAAT Diagnostic Findings Chest x-ray obtained the time of admission did not reveal any acute cardi opulmonary process. Echocardiogram performed today revealed preserved LV systolic function with mild mitral regurgitation. Mild right ventricular dilation ECG Additional Comments: EKG obtained the time admission revealed atrial fibrillation. Nonspecific ST and T-wave changes. PG Care Time/CCT Total # of Minutes Spent Total Time Spent with Patient: Total time spent is greater than 50% in coordination of care (as documented) at patient's floor/unit and/or counseling patient: Coding Level of Care Code 79845 INT INP/OBS CARE 3/75MIN Diagnoses Atrial fibrillation with rapid ventricular response I48.91 Mitral regurgitation I34.0
[2023-01-18] MEDS ORDERED: LIDOCAINE 2% MPF LOCAL 5 ML VIAL ONE (13:13)
[2023-01-18] MEDS ORDERED: PROPOFOL IV EMULSION 10 MG/ML 20 ML VIAL IV ONE ×2 (13:13→13:14)
--- NOTE | 2023-01-18 13:23 | Hospitalist Progress Note ---
Date of Service January 18, 2023 Assessment & Plan (1) Atrial fibrillation with RVR: Plan: Patient remains in A-fib although rate is better controlled. Cardiology plans on cardioversion today Maintain n.p.o. until procedure His symptoms seem to be persistent this time For recurrent prolonged episodes, pill in the pocket approach with flecainide may be considered Will wait for further cardiology recommendations post cardioversion Potassium and magnesium within normal limits TTE findings reviewed. Unremarkable. Continue Eliquis On p.o. metoprolol succinate 25 mg every morning (2) Atrial fibrillation: Plan: -See afib rvr (3) HTN (hypertension): Plan: -Stable -Hold lisinopril for now to avoid hypotension with increased metoprolol dosing (4) History of stroke: Plan: -Thought to be due to previously undiagnosed afib -Continue eliquis (5) Alcohol abuse: Plan: -Previously drank a fifth-handle q2-3 days prior to his stroke -Currently drinks approximately 2 beers daily -Last drink was on 01/14, currently denies any withdrawal symptoms -Will start AWSS protocol to monitor and treat for withdrawal -Patient is S/P 200 mg IV thiamine in the ED -Continue home multivitamin Admission and Anticipated Discharge Date Admission Date: January 17, 2023 Subjective Patient says that he still feels he is in atrial fibrillation. He does not have the heart pounding sensation but feels worn out. He has been informed that he will go for cardioversion today. Review of Systems Review of Systems: All systems reviewed & are unremarkable except as noted in Subjective Physical Exam Physical Exam: General: Awake, conversant Heart: S1, S2/irregular rhythm but controlled rate, no murmur rubs or gallops Lungs: Clear to auscultation bilaterally. Normal effort Abdomen: Soft/nontender/nondistended. No hepatosplenomegaly Extremities: No clubbing/cyanosis. No edema Behavior: Appropriate, cooperative Results & Data Results & Data Vital Signs (Past 12 Hours) Vital Signs Temp Pulse Pulse Resp BP Pulse Ox O2 Del Method 01/18/23 13:05 121 H 20 112/86 96 Room Air 01/18/23 11:20 36.3 C L 64 16 98/63 L 97 Room Air 01/18/23 09:22 99 H 117/79 01/18/23 07:35 36.3 C L 76 16 109/80 94 Room Air 01/18/23 02:56 36.3 C L 59 L 16 112/78 94 Room Air Laboratory Results Abnormal lab results 01/17/23 01/18/23 Range/Units 12:52 07:00 Chloride 108 H (98-107) mmol/L BUN/Creatinine Ratio 22.4 H (10-20) Glucose 127 H (70-99(Fasting)) mg/dl AST 11 L (13-39) U/L Diagnostic Findings Chest X-Ray 01/17/23 12:47 XR chest 1V portable HISTORY: 67 years-old Male Chest pain, nonspecific acute chest pain COMPARISON: 12/30/2021 TECHNIQUE: AP view of the chest FINDINGS: Calcified granuloma the lateral right lung base. Cardiac mediastinal and hilar silhouettes are within normal limits. No pneumothorax, pleural effusion, airspace consolidation or pulmonary edema. Bones of the chest appear grossly intact. Healed chronic mid left clavicular fracture deformity. IMPRESSION: No acute process. ACT 112: Negative or not required by law. The above report was generated using voice recognition software. It may contain grammatical, syntax or spelling errors. Electronically signed by: Anderson Roberts M.D. 01/17/2023 1:21 PM PG Care Time/CCT Total # of Minutes Spent Total Time Spent with Patient: Total time spent is greater than 50% in coordination of care (as documented) at patient's floor/unit and/or counseling patient: Coding Level of Care Code 69234 SUB INP/OBS CARE 2/35MIN Diagnoses Atrial fibrillation with RVR I48.91 Atrial fibrillation I48.91 HTN (hypertension) I10 Hypertension type: essential hypertension History of stroke Z86.73 Alcohol abuse F10.10 (3) HTN (hypertension) Hypertension type: essential hypertension Qualified Code(s): I10 - Essential (primary) hypertension
--- NOTE | 2023-01-18 13:39 | Anesthesiology Consultation ---
Date of Service January 18, 2023 Assessment & Plan Chart Review Chart Review: Acceptable Risk for Surgery Consults Requested none ASA ASA3 Proposed Anesthesia Anesthesia Type: MAC Risk / Benefits Reviewed With: PT / POA / Parent / Guardian, Accepts Plan and Informed Consent Obtained History Surgery Operation Date: 01/18/23 13:00 Proposed Procedures p Cardioversion [employer] Associate w/Anesthesia - Jus Pope MD Height/Weight Height: 5 ft 11 in Weight: 87.1 kg Allergies Allergy/AdvReac Type Severity Reaction Status Date / Time shellfish derived Allergy Anaphylaxis Verified 01/17/23 17:04 Medications Home Medications Medication Instructions Recorded Confirmed Last Taken lisinopril 10 mg tablet 10 mg PO QAM 11/01/19 01/17/23 01/17/23 multivitamin 1 tab PO QAM 12/19/19 01/17/23 01/17/23 apixaban 5 mg tablet (Eliquis) 5 mg PO BID #60 tabs 05/02/20 01/17/23 01/17/23 am dose ropinirole 0.5 mg tablet 2 mg PO HS #0 tabs 05/02/20 01/17/23 01/16/23 naproxen sodium 220 mg tablet 440 mg PO BID PRN Pain 02/20/21 01/17/23 02/20/21 metoprolol succinate 25 mg 12.5 mg PO QAM 01/17/23 01/17/23 01/17/23 tablet,extended release 24 hr Active Medications Generic Name Dose Route Start Last Admin Trade Name Freq PRN Reason Stop Dose Admin Apixaban 5 mg 01/17/23 21:00 01/18/23 09:25 Apixaban 5 Mg Tablet PO 02/16/23 20:59 5 mg BID NATHANIEL Administration Metoprolol Succinate 25 mg 01/18/23 09:00 01/18/23 09:25 Metoprolol Succ 25mg Ext Rel Tab PO 02/17/23 08:59 25 mg QAM NATHANIEL Administration Multivitamins 1 tab 01/18/23 09:00 01/18/23 09:26 Multivitamin Tab PO 02/17/23 08:59 1 tab QAM NATHANIEL Administration Ropinirole HCl 2 mg 01/17/23 18:00 01/17/23 19:57 Ropinirole Hcl 2 Mg Tablet PO 02/16/23 17:59 2 mg DAILY@1800 NATHANIEL Administration NPO Date Last Intake of Fluids: 01/18/23 Time Last Intake of Fluids: 00:00 Date Last Intake of Solids: 01/18/23 Time Last Intake of Solids: 00:00 Past Medical History Medical History Anxiety Atrial fibrillation dx 2-3 years - on eliquis - [facility] Change in bowel movement HTN (hypertension) Neuropathy Osteoarthritis Palpitations Restless leg syndrome Stroke 8 years ago - right sided weakness - 2/2 htn, smoking - on eliquis Exercise / Class Metabolic Activity II 4-5 Yardwork/Stairs/Walk up hill Past Family History Family History Other No family history of adverse response to anesthesia Past Surgical History Surgical History H/O hemorrhoidectomy History of colonoscopy with polypectomy History of surgery lipoma removal History of tooth extraction Past Anesthesia History No Hx of Anesthesia Complications and No Family Hx of Anesthesia Complications History of PONV No Hx of PONV and No Hx of Motion Sickness Social History Smoking Status: Never smoker tobacco type: cigarettes Smoking cigarettes per day: 15 Hx Alcohol Use: Yes Alcohol type: other alcohol intake frequency: 0-2 drinks per day Alcohol Intake Frequency Comment: drinks 1-2 beers daily Hx Substance Use: No substance use type: marijuana Last Used Substance Other:: 1 week ago Physical Exam Vital Signs Last Vital Signs Temp 97.3 F L 01/18/23 11:20 Pulse 121 H 01/18/23 13:05 Resp 20 01/18/23 13:05 BP 112/86 01/18/23 13:05 Pulse Ox 96 01/18/23 13:05 O2 Del Method Room Air 01/18/23 13:05 ENMT Mouth: + chipped teeth (Upper R front) and + loose teeth Thyromental Distance: > or= 3.5 Finger Breadths Mallampati Class: II Neck normal visual inspection Respiratory normal respiratory effort Auscultation: lungs clear to auscultation bilaterally Cardiovascular Rate/Rhythm: + abnormal rate and + abnormal rhythm Testing Laboratory Results 01/18/23 07:00 01/18/23 07:00 PT 10.9 Seconds (9.0-12.0) 01/18/23 07:00 INR 1.0 (0.9-1.1) 01/18/23 07:00 APTT 26.2 Seconds (21.0-31.0) 01/17/23 12:52
--- NOTE | 2023-01-18 13:47 | Cardioversion ---
Date of Service January 18, 2023 PG Electrical Cardioversion Rp Electrical Cardioversion Report Procedure performed: Cardioversion Indication: Atrial fibrillation Staff operating room surgical technician: Jus Pope MD Procedure in detail: The patient was informed of the risks benefits and alternatives to the intended procedure. He understood such which proceed. He was taken to the cardiac catheterization suite holding area. A general anesthetic was administered by the Anesthesiology Service. Once appropriately anesthetized, the patient was cardioverted using 200 joules delivered in a biphasic fashion. This returned the patient to sinus rhythm. The patient tolerated procedure well, there were no immediate complications. Patient was neurologically intact subsequent to the procedure. Impression: Successful cardioversion from atrial fibrillation to normal sinus rhythm Coding Level of Care Code 15069 CARDIOVERSION, ELECTIVE Additional Codes Electrical Cardioversion Report ([id number])
--- NOTE | 2023-01-18 14:15 | Anesthesiology Progress Note ---
Date of Service January 18, 2023 Anesthesia Post Procedure Vital Signs Vital Signs: Temp Pulse Pulse Pulse Resp BP BP 01/18/23 14:04 63 16 103/72 01/18/23 13:45 62 16 112/78 01/18/23 13:05 121 H 20 112/86 01/18/23 11:20 97.3 F L 64 16 98/63 L 01/18/23 09:22 99 H 117/79 01/18/23 07:35 97.3 F L 76 16 109/80 01/18/23 02:56 97.3 F L 59 L 16 112/78 01/17/23 22:33 98.4 F 71 19 90/61 L 01/17/23 19:47 97.9 F 100 H 18 98/64 L 01/17/23 17:25 95 H 01/17/23 16:51 97.9 F 76 18 108/66 01/17/23 16:46 01/17/23 16:19 114/74 01/17/23 16:05 98.0 F 92 H 22 97/80 L 01/17/23 15:28 104 H 19 112/79 01/17/23 14:30 113 H 19 Pulse Ox Pulse Ox O2 Del Method O2 Del Method 01/18/23 14:04 96 Room Air 01/18/23 13:45 99 Room Air 01/18/23 13:05 96 Room Air 01/18/23 11:20 97 Room Air 01/18/23 09:22 01/18/23 07:35 94 Room Air 01/18/23 02:56 94 Room Air 01/17/23 22:33 95 Room Air 01/17/23 19:47 96 Room Air 01/17/23 17:25 01/17/23 16:51 97 Room Air 01/17/23 16:46 96 Room Air 01/17/23 16:19 01/17/23 16:05 95 Room Air 01/17/23 15:28 96 Room Air 01/17/23 14:30 Transfer of Care Handoff Completed per policy Notes Mental Status: alert / awake / arousable and participated in evaluation Patient Amnestic to Procedure: Yes Nausea / Vomiting: adequately controlled Pain: adequately controlled Airway Patency, RR, SpO2: stable & adequate BP & HR: stable & adequate Hydration State: stable & adequate Anesthetic Complications: no major complications apparent and Pt Satisfied with anesthetic care
[2023-01-18] MEDS: rOPINIRole HCL 2 MG TABLET PO SCH (18:13)
[2023-01-18] MEDS: NAPROXEN 250 MG TAB PO PRN (18:13)
[2023-01-19] MEDS ORDERED: MELATONIN 3 MG TAB PO STA (03:40)
[2023-01-19] MEDS: APIXABAN 5 MG TABLET PO SCH (08:10)
[2023-01-19] MEDS: NAPROXEN 250 MG TAB PO PRN (08:10)
[2023-01-19] MEDS: MULTIVITAMIN TAB PO SCH (08:10)
[2023-01-19] MEDS: METOPROLOL SUCC 25MG EXT REL TAB PO SCH (08:10)
[2023-01-19 08:16] LABS: Hematocrit (blood only) 44.2 % (42.0-52.0); Hemoglobin 15.2 g/dl (14.0-18.0); Mean Corpuscular Hemoglobin 30.6 pg (25.0-34.0); Mean Corpuscular Hgb Conc 34.4 g/dL (32.0-36.0); Mean Corpuscular Volume 89.1 fL (80.0-100.0); Mean Platelet Volume 11.7 fL (9.4-12.4); Platelet Count 225 K/uL (130-400); RDW Coefficient of Variation 13.2 % (11.5-14.5); RDW Standard Deviation 43.1 fL (36.4-46.3); Red Blood Count 4.96 M/uL (4.70-6.10); White Blood Count 6.21 K/ul (4.8-10.8)
[2023-01-19 08:37] LABS: Prothrombin Time 11.1 Seconds (9.0-12.0)
[2023-01-19 08:41] LABS: Calcium 9.3 mg/dl (8.6-10.3); Creatinine Clr Calc Pharmacy 77.4 ml/min; Est GFR (African American) 90.5 ml/min; Est GFR (Non-African American) 78.1 ml/min; Potassium 4.4 mmol/L (3.5-5.1)
--- NOTE | 2023-01-19 09:49 | Discharge Summary ---
Date of Service January 19, 2023 Admission HPI Per Admitting Provider Aristides is a 67 year old male with a PMH significant for paroxysmal afib on eliquis, previous CVA with residual right-sided weakness, restless leg syndrome, HTN who presented to the [facility] ED on 01/17/23 with a chief complaint of 2-3 days of heart palpitations. In the ED the patient was found to being in afib RVR with HR in the low 100's-120's, otherwise stable vitals. Labs including CBC, CMP, and high sen trop were WNL. Chest xray was read as "No acute process.". Prior to admission the patient was given 1gm IV mag, 5 mg IV lopressor, 1L NSS, and 200 mg IV thiamine. At the time of the exam the patient was sitting in bed in no acute distress. He states that he can typically feel when he goes into afib as he will experience heart palpitations. He states that this occurred more frequently when he was a heavy drinker in the past, he currently drinks 2 beers daily. On 01/14 he noticed that he was back in afib with increased HR. He experienced some heart palpitations with a slight amount of central chest tightness but was otherwise asymptomatic. He states that he has a prescription for 12.5 mg PO Metoprolol Succinate to be used prn for persistent aifb written by his [facility]. Since 01/14 he has been taking the 12.5 mg PO daily without relief. His last drink was on 01/14 as he thought the alcohol may be contributing, he denies a history of serious alcohol withdrawal or history of withdrawal seizures. He currently denies any withdrawal symptoms. He has been taking his Eliquis BID without any recently missed doses. He is a full code and would want his Son, Prince, to make medical decisions for him if he could not make them himself. Please refer to Dr. Guzman's attestation for any changes to the treatment plan Admission Exam Per Admitting Provider General:In no acute distress, stated age, well-nourished, good hygiene HEENT:Normocephalic, atraumatic, no scleral icterus, pupils around round, symmetrical, and reactive to light, moist mucus membranes, trachea midline, no thyromegaly Chest/Pulm:No respiratory distress, symmetrical chest expansion, clear breath sounds throughout Cardiac:irregular rate and rhythm, systolic murmur noted Abdomen:Negative for ascites and bruising, normoactive bowel sounds, soft, non-tender to palpation throughout Musculoskeletal:Symmetrical and without signs of acute trauma, upper and lower extremities with full ROM, no atrophy, spasticity, or flaccidity Extremities:Radial, dorsalis pedis, and posterior tibial pulses are intact and symmetrical, no edema noted in the BL LE's Skin:Warm, dry, no rashes , lesions, or scars noted Neuro:Alert and oriented to person, place, month, year, and president, no focal defects, CN II-XII tested and intact, finger to nose test negative, no tremors noted Psych:No acute distress, calm and cooperative during the exam Principal Diagnosis Atrial fibrillation with rapid ventricular response Discharge Exam General: Awake, conversant Heart: S1, S2/irregular rhythm but controlled rate, no murmur rubs or gallops Lungs: Clear to auscultation bilaterally. Normal effort Abdomen: Soft/nontender/nondistended. No hepatosplenomegaly Extremities: No clubbing/cyanosis. No edema Behavior: Appropriate, cooperative Discharge Data Allergies Allergy/AdvReac Type Severity Reaction Status Date / Time shellfish derived Allergy Anaphylaxis Verified 01/17/23 17:04 Consultations 01/17/23 15:13 ED Decision to Admit Stat 01/17/23 15:39 Consult Cardiology Routine 01/19/23 08:02 Consult [facility] legal nurse consultant Routine Procedures Performed Operation Date: 01/18/23 13:00 Actual Procedures p Cardioversion - Jus Pope MD Hospital Course (1) Atrial fibrillation with RVR: Patient presented with in rapid atrial fibrillation and remained in A-fib despite rate control Cardiology performed a successful electrical cardioversion on 01/18 Patient remained in sinus rhythm for 24 hours since cardioversion TTE findings reviewed. Unremarkable. Continue Eliquis Continue metoprolol succinate 25 mg every morning Cardiology cleared the patient for discharge with no change in medications Follow-up with cardiology in 1 month Flecainide as pill in the pocket will be considered by cardiology (2) Atrial fibrillation: -See afib rvr (3) HTN (hypertension): -Stable -Resume lisinopril. Continue metoprolol 25 mg (4) History of stroke: -Thought to be due to previously undiagnosed afib -Continue eliquis (5) Alcohol abuse: -Previously drank a fifth-handle q2-3 days prior to his stroke -Currently drinks approximately 2 beers daily -Last drink was on 01/14, currently denies any withdrawal symptoms -No signs of withdrawal during the hospital stay Total Time Total Time Spent Total Time Spent (In Minutes): 35 Discharge Plan Discharge Items Patient Disposition: Home - Self-Care Reason For Visit: PALPITATIONS Discharge Diagnosis: Rapid Afib Activity: Resume your previous activity Non-emergency contact: Primary Care Provider Call non-emergency contact if: you have any medication questions and your symptoms worsen Follow-up/Referrals: [facility] [Primary Care Provider] - (Please call to schedule follow up in 1 week) Diet: Heart Healthy Addtl Attending Provider Instructions: Advised to follow-up with PCP in 1 week Advised to follow-up with decal maker in 1 month Pending Studies at Discharge: No Stand-Alone Forms: My [facility] Medications and DC Order Prescriptions: New metoprolol succinate 25 mg Tablet Extended Release 24 Hr 25 mg PO QAM Qty: 30 0RF Continued multivitamin Tablet 1 tab PO QAM lisinopril 10 mg Tablet 10 mg PO QAM Eliquis 5 mg Tablet 5 mg PO BID Qty: 60 3RF ropinirole 0.5 mg Tablet 2 mg PO HS Qty: 0 0RF naproxen sodium 220 mg Tablet 440 mg PO BID PRN (Reason: Pain) Discontinued metoprolol succinate 25 mg Tablet Extended Release 24 Hr 12.5 mg PO QAM Discharge Orders: Discharge Order (Routine); Ordered 01/19/23 Ordered By: Shakir Muller Admission Data Admit Date/Time: 01/17/23 15:38 Attending Provider: Shakir Muller Admit Provider: Won Guzman Primary Care Provider: [facility] Other Providers: Won Guzman ; Jus Pope Other Interventions: Discharge Summary Assessment (RN) Last Done: 01/19/23 10:40 Coding Level of Care Code 58386 INP/OBS DISCH >30 MIN Diagnoses Atrial fibrillation with RVR I48.91 Atrial fibrillation I48.91 HTN (hypertension) I10 Hypertension type: essential hypertension History of stroke Z86.73 Alcohol abuse F10.10
--- NOTE | 2023-01-19 13:12 | Electrocardiogram Report ---
Test Reason : Blood Pressure : / mmHG Vent. Rate : 067 BPM Atrial Rate : 067 BPM P-R Int : 142 ms QRS Dur : 072 ms QT Int : 392 ms P-R-T Axes : 033 021 016 degrees QTc Int : 414 ms Normal sinus rhythm Normal ECG When compared with ECG of 17-JAN-2023 12:49, Sinus rhythm has replaced Atrial fibrillation Vent. rate has decreased BY 39 BPM Confirmed by Jus Pope ([id number]) on 01/19/2023 1:11:44 PM Referred By: REFERRED SELF Confirmed By:Puma Pope
== END 2023-01-19 11:35 | disposition home or self-care (01) | DRG 309 ==
LOC: ED 12:41 → SUATTDRO 15:38 → 2S 15:38

== ENCOUNTER 2023-03-12 21:13 | Observation (INO) ==
[2023-03-12] MEDS ORDERED: METOPROLOL TARTRATE 1 MG/ML VIAL IV STA (21:30)
[2023-03-12] MEDS ORDERED: SODIUM CHLORIDE 0.9% 1000ML 1,000 ML IV STA (21:30)
[2023-03-12] MEDS ORDERED: METOPROLOL TARTRATE 1 MG/ML VIAL IV ONE (21:32)
[2023-03-12 21:55] LABS: Basophils # (auto) 0.03 K/uL (0-0.2); Basophils % (auto) 0.4 %; Eosinophils # (auto) 0.16 K/uL (0-0.50); Eosinophils % (auto) 2.2 %; Hematocrit (blood only) 45.7 % (42.0-52.0); Hemoglobin 16.1 g/dl (14.0-18.0); Immature Granulocytes # (auto) 0.01 K/uL (0.01-0.20); Immature Granulocytes % (auto) 0.1 %; Lymphocytes # (auto) 1.79 K/uL (1.2-3.4); Lymphocytes % (auto) 24.4 %; Mean Corpuscular Hemoglobin 31.1 pg (25.0-34.0); Mean Corpuscular Hgb Conc 35.2 g/dL (32.0-36.0); Mean Corpuscular Volume 88.2 fL (80.0-100.0); Mean Platelet Volume 11.6 fL (9.4-12.4); Monocytes # (auto) 0.62 K/uL (0.11-0.59); Monocytes % (auto) 8.5 %; Neutrophils # (auto) 4.72 K/uL (1.40-6.50); Neutrophils % (auto) 64.4 %; Platelet Count 234 K/uL (130-400); RDW Coefficient of Variation 13.1 % (11.5-14.5); RDW Standard Deviation 42.4 fL (36.4-46.3); Red Blood Count 5.18 M/uL (4.70-6.10); White Blood Count 7.33 K/ul (4.8-10.8)
[2023-03-12] MEDS: METOPROLOL TARTRATE 1 MG/ML VIAL IV PRN ×2 (22:10→23:02)
[2023-03-12 22:13] LABS: Albumin Globulin Ratio 1.6 (0.9-2); Albumin Level 4.2 gm/dl (3.4-5.0); BUN Creatinine Ratio 16.5 (10-20); Bilirubin,Total 0.4 mg/dl (0.2-1.0); Calcium 9.4 mg/dl (8.6-10.3); Creatinine Clr Calc Pharmacy 81.1 ml/min; Est GFR (African American) 93.2 ml/min; Est GFR (Non-African American) 80.5 ml/min; Globulin 2.7 gm/dl (2.5-4.0); Potassium 3.5 mmol/L (3.5-5.1); Total Protein 6.9 gm/dl (6.0-8.3)
[2023-03-12] MEDS ORDERED: POLYETHYLENE (MIRALAX) 17 GM PACK PO PRN (22:47)
[2023-03-12] MEDS ORDERED: ACETAMINOPHEN 325 MG TAB PO PRN (22:47)
[2023-03-12] MEDS ORDERED: MELATONIN 3 MG TAB PO PRN (22:53)
--- NOTE | 2023-03-12 22:59 | Emergency Department Note ---
History of Present Illness General Chief complaint: Arrhythmia/Palpitations Stated complaint: A-FIB Time Seen by Provider: 03/12/23 21:25 History of Present Illness Maximum Pain Intensity: 6 This 68-year-old male with a history of A-fib on Eliquis presents the ER complaining of racing heart feeling dehydrated and cannot sleep for the past few days since returning from [place]. He had a couple whiskeys today. Patient denies chest pain, dyspnea, abdominal pain, vomiting, diarrhea. Home Medications Medication Instructions Recorded Confirmed Type lisinopril 10 mg tablet 10 mg PO QAM 11/01/19 03/12/23 History multivitamin 1 tab PO QAM 12/19/19 03/12/23 History apixaban 5 mg tablet (Eliquis) 5 mg PO BID #60 tabs 05/02/20 03/12/23 Rx ropinirole 0.5 mg tablet 2 mg PO HS #0 tabs 05/02/20 03/12/23 Rx metoprolol succinate 50 mg 50 mg PO DAILY 02/22/23 03/12/23 History tablet,extended release 24 hr Allergies Allergy/AdvReac Type Severity Reaction Status Date / Time shellfish derived Allergy Anaphylaxis Verified 03/12/23 22:53 Past Med/Surg History Medical History (Updated 03/12/23 @ 23:03 by Arianna De Dios PA-C) Alcohol abuse Anxiety Atrial fibrillation dx 2-3 years - on eliquis [facility] Change in bowel movement History of stroke HTN (hypertension) Mitral regurgitation Neuropathy Osteoarthritis Palpitations Restless leg syndrome Stroke 8 years ago - right sided weakness - 2/2 htn, smoking - on eliquis Surgical History H/O hemorrhoidectomy History of colonoscopy with polypectomy History of surgery lipoma removal History of tooth extraction Family History Other No family history of adverse response to anesthesia Social History Smoking Status: Former smoker Cigarettes Per Day: 15; Second Hand Exposure: No; Do You Dip or Chew Tobacco: No; Tobacco Cessation Education Requested by Patient: No Hx Alcohol Use: Yes Alcohol type: hard liquor Hx Substance Use: Yes Last Used Substance: Days (ago) Last Used Substance Other:: 1 week ago Preferred Language: Mexican Communication Ability: Effective Drying Oven Tender Required: No Beliefs That Will Affect Care: None Current Living Situation: Homeless Current Living Situation Comment: pt currently homeless but is living with his brother and his son's Other Information That Helps Us Care for You: No Feels Safe at Home: Declines to Answer Assistive Devices: None Review of Systems A total of 10 systems reviewed and were otherwise negative Physical Exam Vital Signs Vital Signs - 24 hr 03/12/23 21:17 03/12/23 21:35 03/12/23 22:10 Temperature 36.8 C Temperature Source Temporal Artery Scan Pulse Rate 128 H 140 H 128 H Respiratory Rate 20 Blood Pressure 107/72 130/99 117/86 Blood Pressure Mean 83 Pulse Oximetry 95 Oxygen Delivery Method Room Air Sepsis Recent Fever Within 48 Hours No Sepsis New/Unexplained Change in Mental Status No Sepsis Action Taken by Nursing No Action Required 03/12/23 21:30 Temperature Temperature Source Pulse Rate 147 H Respiratory Rate Blood Pressure Blood Pressure Mean Pulse Oximetry Oxygen Delivery Method Sepsis Recent Fever Within 48 Hours Sepsis New/Unexplained Change in Mental Status Sepsis Action Taken by Nursing VITALS: Vitals are noted on the nurse's note and reviewed by myself. Vital signs tachycardic. GENERAL: White male, in no acute distress, nondiaphoretic, well-developed well- nourished. SKIN: The skin was without rashes, erythema, edema, or bruising. There is no tenting of the skin. Capillary reflex less than 2 seconds. HEAD: Normocephalic atraumatic. EARS: External auditory canals clear, EYES: Pupils equal round and reactive to light and accommodation. Conjunctivae without injection, sclerae without icterus. Extraocular movements intact. NOSE: Patent, turbinates without inflammation or discharge. MOUTH: Mucous membranes mildly dry. Pharynx without erythema or exudate. Uvula midline. Airway patent. Tongue does not deviate. NECK: Supple without nuchal rigidity. No lymphadenopathy. No thyromegaly. Cervical spine is nontender. No JVD. HEART: Tachycardic irregularly irregular LUNGS: Clear to auscultation bilaterally without wheezes, rales or rhonchi. No retractions or accessory muscle use. ABDOMEN: Positive bowel sounds x 4. Normal tympanic percussion. Soft, nontender, without masses or organomegaly. Faith sign negative. No guarding or rebound tenderness. No CVA tenderness MUSCULOSKELETAL: No muscle atrophy, erythema, or edema noted. NEURO: Patient was alert and oriented to person place and time. Normal sensation to light and sharp touch. No focal neurological deficits. Course Administered Medications Apixaban (Apixaban 5 Mg Tablet) 5 mg PO BID NATHANIEL Stop: 04/12/23 00:24 Last Admin: 03/13/23 08:40 Dose: 5 mg Documented By: Admin: 03/13/23 01:19 Dose: 5 mg Documented By: KIKA Lisinopril (Lisinopril 10 Mg Tab) 10 mg PO QAM NATHANIEL Stop: 04/12/23 08:59 Last Admin: 03/13/23 08:40 Dose: 10 mg Documented By: DORA Metoprolol Succinate (Metoprolol Succ 50mg Ext Rel Tab) 100 mg PO DAILY NATHANIEL Stop: 04/12/23 08:59 Last Admin: 03/13/23 09:52 Dose: 100 mg Documented By: DORA Discontinued Medications Acetaminophen (Acetaminophen 500 Mg Tab) 500 mg PO ONE ONE Stop: 03/13/23 02:59 Last Admin: 03/13/23 03:16 Dose: 500 mg Documented By: LMP Diphenhydramine HCl (Diphenhydramine Capsule 25 Mg Cap) 25 mg PO NOW ONE Stop: 03/13/23 02:58 Last Admin: 03/13/23 03:17 Dose: 25 mg Documented By: LMP Flecainide Acetate (Flecainide Acetate 100 Mg Tablet) 300 mg PO ONE ONE Stop: 03/13/23 10:10 Last Admin: 03/13/23 10:53 Dose: 300 mg Documented By: DORA Sodium Chloride (Nss 1000ml) 1,000 mls @ 999 mls/hr IV .Q1H1M STA Stop: 03/12/23 22:30 Last Infusion: 03/12/23 22:13 Dose: 0 mls/hr Documented By: Admin: 03/12/23 21:36 Dose: 999 mls/hr Documented By: VINNIE Metoprolol Tartrate (Metoprolol Tartrate 1 Mg/Ml Vial) 5 mg IV NOW STA Stop: 03/12/23 21:31 Last Admin: 03/12/23 21:35 Dose: 5 mg Documented By: VINNIE Metoprolol Tartrate (Metoprolol Tartrate 1 Mg/Ml Vial) Confirm Administered Dose 5 mg IV .STK-MED ONE Stop: 03/12/23 21:33 Last Admin: 03/12/23 21:36 Dose: Not Given Documented By: VINNIE Metoprolol Tartrate (Metoprolol Tartrate 1 Mg/Ml Vial) 5 mg IV Q5M PRN PRN Reason: Tachycardia Stop: 04/11/23 21:31 Last Admin: 03/12/23 23:02 Dose: 5 mg Documented By: sales marketing manager: 03/12/23 22:10 Dose: 5 mg Documented By: NATALI Critical Care Time Critical Care Time: Yes Total Critical Care Time: 35 I have personally spent 35 minutes of critical care time in the direct management of this patient. This includes bedside care, interpretation of diagnostic studies, and testing, discussion with consultants, patient, and family members, and other required patient management activities. This 35 minutes is in excess of all separately billable procedures. Medical Decision Making Medical Records Attestation: I reviewed the patient's medical records. Home Medications Current Medication List: was personally reviewed by me Laboratory Data Attestation: I reviewed the patient's lab results. 03/12/23 21:30 03/12/23 21:30 Lab Results 03/12/23 03/12/23 03/12/23 Range/Units 21:30 21:30 21:30 WBC 7.33 (4.8-10.8) K/ul RBC 5.18 (4.70-6.10) M/uL Hgb 16.1 (14.0-18.0) g/dl Hct 45.7 (42.0-52.0) % MCV 88.2 (80.0-100.0) fL MCH 31.1 (25.0-34.0) pg MCHC 35.2 (32.0-36.0) g/dL RDW Std Deviation 42.4 (36.4-46.3) fL RDW Coeff of Alejandro 13.1 (11.5-14.5) % Plt Count 234 (130-400) K/uL MPV 11.6 (9.4-12.4) fL Immature Gran % (Auto) 0.1 % Neut % (Auto) 64.4 % Lymph % (Auto) 24.4 % [place] % (Auto) 8.5 % Eos % (Auto) 2.2 % Baso % (Auto) 0.4 % Neut # (Auto) 4.72 (1.40-6.50) K/uL Lymph # (Auto) 1.79 (1.2-3.4) K/uL [place] # (Auto) 0.62 H (0.11-0.59) K/uL Eos # (Auto) 0.16 (0-0.50) K/uL Baso # (Auto) 0.03 (0-0.2) K/uL Immature Gran # (Auto) 0.01 (0.01-0.20) K/uL Sodium 139 (136-145) mmol/L Potassium 3.5 (3.5-5.1) mmol/L Chloride 106 (98-107) mmol/L Carbon Dioxide 25 (21-32) mmol/L Anion Gap 8 (3-11) BUN 16 (6-23) mg/dl Creatinine 0.97 (0.6-1.4) mg/dl Est Cr Clr Drug Dosing 81.1 ml/min Est GFR ( Amer) 93.2 ml/min Est GFR (Non-Af Amer) 80.5 ml/min BUN/Creatinine Ratio 16.5 (10-20) Glucose 153 H (70-99(Fasting)) mg/dl Calcium 9.4 (8.6-10.3) mg/dl Magnesium 2.0 (1.7-2.4) mg/dl Total Bilirubin 0.4 (0.2-1.0) mg/dl AST 20 (13-39) U/L ALT 17 (7-52) U/L Alkaline Phosphatase 51 (34-104) U/L Troponin I High Sens 8.0 (0-20) pg/ml Total Protein 6.9 (6.0-8.3) gm/dl Albumin 4.2 (3.4-5.0) gm/dl Globulin 2.7 (2.5-4.0) gm/dl Albumin/Globulin Ratio 1.6 (0.9-2) TSH 0.795 (0.300-4.500) uIu/ml Ethyl Alcohol mg/dL (<10.0) mg/dl Lyme Disease IgG Ab (Negative) Lyme Disease IgM Ab (Negative) 03/12/23 03/12/23 Range/Units 21:30 21:30 WBC (4.8-10.8) K/ul RBC (4.70-6.10) M/uL Hgb (14.0-18.0) g/dl Hct (42.0-52.0) % MCV (80.0-100.0) fL MCH (25.0-34.0) pg MCHC (32.0-36.0) g/dL RDW Std Deviation (36.4-46.3) fL RDW Coeff of Alejandro (11.5-14.5) % Plt Count (130-400) K/uL MPV (9.4-12.4) fL Immature Gran % (Auto) % Neut % (Auto) % Lymph % (Auto) % [place] % (Auto) % Eos % (Auto) % Baso % (Auto) % Neut # (Auto) (1.40-6.50) K/uL Lymph # (Auto) (1.2-3.4) K/uL [place] # (Auto) (0.11-0.59) K/uL Eos # (Auto) (0-0.50) K/uL Baso # (Auto) (0-0.2) K/uL Immature Gran # (Auto) (0.01-0.20) K/uL Sodium (136-145) mmol/L Potassium (3.5-5.1) mmol/L Chloride (98-107) mmol/L Carbon Dioxide (21-32) mmol/L Anion Gap (3-11) BUN (6-23) mg/dl Creatinine (0.6-1.4) mg/dl Est Cr Clr Drug Dosing ml/min Est GFR ( Amer) ml/min Est GFR (Non-Af Amer) ml/min BUN/Creatinine Ratio (10-20) Glucose (70-99(Fasting)) mg/dl Calcium (8.6-10.3) mg/dl Magnesium (1.7-2.4) mg/dl Total Bilirubin (0.2-1.0) mg/dl AST (13-39) U/L ALT (7-52) U/L Alkaline Phosphatase (34-104) U/L Troponin I High Sens (0-20) pg/ml Total Protein (6.0-8.3) gm/dl Albumin (3.4-5.0) gm/dl Globulin (2.5-4.0) gm/dl Albumin/Globulin Ratio (0.9-2) TSH (0.300-4.500) uIu/ml Ethyl Alcohol mg/dL < 10.0 (<10.0) mg/dl Lyme Disease IgG Ab Positive A (Negative) Lyme Disease IgM Ab Negative (Negative) Imaging Data Attestation: I personally reviewed and interpreted this imaging study as follows: Radiologist's Impression: Chest X-Ray 03/12/23 21:31 XR chest 1V portable CLINICAL HISTORY: Dysrhythmia TECHNIQUE: Single frontal radiograph of the chest was obtained. Comparison: Comparison is made to chest radiograph 01/17/2023 FINDINGS: No lines and tubes are seen. The cardiomediastinal silhouette is normal. The lungs are clear. No evidence of pleural effusion or pneumothorax. IMPRESSION: No acute chest disease. ACT 112: Negative or not required by law. Electronically signed by: Juan Flores M.D. 03/13/2023 9:30 AM MDM Narrative Prior records/ancillary studies reviewed and summarized above. Nursing notes reviewed. Additional history obtained from family. The patient's history was concerning for racing heart feeling weak with a history of A-fib. Differential diagnosis: Etiologies such as metabolic, infection, hypo/hyperglycemia, electrolyte abnormalities, cardiac sources, intracerebral event, toxicologic, neurologic, as well as others were entertained. Physical examination: As above. ER treatment provided: IV Lock An order was placed for continuous cardiac monitoring. The monitor shows a rate of 60-1 50 with a A-fib rhythm per my interpretation. IV fluids Lopressor On reassessment the patient felt better. Diagnostics interpretation by me: ECG: Ordered for tachycardia EKG: Irregularly irregular with occasional PVC rate of 145. Impression A-fib with RVR with occasional PVCs independently interpreted by myself The labs Independently Interpreted by myself revealed euthyroid, negative troponin, hyperglycemia without DKA Imaging studies: Chest x-ray with no acute consolidation, pneumothorax or free air per my independent rotation Consultation: A consultation was placed with the hospitalist. The case was discussed and diagnostics were reviewed. The patient was evaluated in the ER for further treatment. Exam and history seem consistent with A-fib with RVR. Patient was medicated as above. Heart rate did come down. He was given a few doses of Lopressor. Labs and diagnostics were independent reviewed by myself. Medicine was consulted and the case is discussed. Patient be admitted to the medical team. Patient is agreeable. By the evaluation outlined above emergent etiologies such as infection, electrolyte abnormalities, intracerebral event, neurologic, abno rmalities blood glucose, metabolic, as well as others were deemed relatively unlikely. The pt informed about the findings as listed above. All questions were answered and pleased with the treatment. The chart was completed utilizing [employer] Speech voice recognition software. Grammatical errors, random word insertions, pronoun errors, and incomplete sentences are an occassional consequence of this system due to software limitations, ambient noise, and hardware issues. Any formal questions or concerns about the content, text, or information contained within the body of this dictation should be directly addressed to the physician credit control assistant for clarification. Impression & Plan Atrial fibrillation with rapid ventricular response Discharge Plan Visit Data Chief Complaint: Arrhythmia/Palpitations Stated Complaint: A-FIB ED Provider: Tahir Villagran ED Midlevel Provider: Arianna De Dios Discharge Problem: Atrial fibrillation with rapid ventricular response Patient Disposition: Admitted As Inpatient Condition: Fair Discharge Instructions Interventions: ED Discharge Assessment Last Done: 03/13/23 00:19 Addendum March 13, 2023 15:43 HPI: The patient is a 68-year-old gentleman with a past medical history of atrial fibrillation on Eliquis, alcohol use who presents to the emergency department for evaluation of heart racing and concern for dehydration over the past several days. He reports drinking whiskey. A/P: EKG demonstrates atrial fibrillation with RVR at [address] abnormality without overt ST elevation. WBC, H/H and platelets within normal limits. Chemistry without metabolic acidosis. Electrolytes and LFTs without significant abnormality. High-sensitivity troponin 8.0, within normal limits. TSH within normal limits. Patient was treated with IV fluids and IV Lopressor X 2. Referred to hospitalist service for admission for further management of Afib with RVR. I was consulted by the Advanced Practice Provider.I performed a substantive portion of the visit.This includes aspects of the HPI, MDM, diagnostic interp retations, and disposition/plan. I discussed the case with the MACARENA, examined the patient, and agree with the findings and plan as documented in MACARENA De Dios's note.
--- NOTE | 2023-03-13 00:17 | History & Physical Report ---
Date of Service March 12, 2023 Assessment & Plan (1) Atrial fibrillation with rapid ventricular response: Plan: 68 M with PMH of hypertension, RLS, untreated insomnia, and A-fib who presented with palpitations, insomnia x2 days. Found to be in A-fib. Admitted for monitoring, further evaluation, med management of A-fib with RVR. AF with RVR -Paroxysmal. On anticoagulation due to history of CVA. Recent cardioversion in January of this year. -Metoprolol 25 mg prescribed by [facility] director hematology. Increased to 50 mg daily by outpatient director hematology. -Atrial fibrillation likely triggered by alcohol consumption, as patient reported palpitations started hours after drinking. Unclear if/how much alcohol he has been consuming regularly since discharge a few weeks ago. If today's alcohol consumption represent isolated episode, A-fib may be self-limited. -Patient's recent visit to [place] x2 weeks and frequent outdoor exposure raises small suspicion for insidious presentation of Lyme, as patient denies recent flulike illness, rash, tick bites, or joint pain. * Admit to observation: PCU telemetry * Lyme IgG & IgM PCR results pending * Continue home metoprolol succinate 50 mg daily, Eliquis 5 mg twice daily * IV Lopressor 5 mg Q5M x3 as needed for persistent tachycardia >120 bpm * Appreciate cardiology consult for rhythm/rate control med evaluation. May cancel consult if A-fib resolves by the a.m. Hypertension -Chronic; managed on lisinopril * Continue home lisinopril 10 mg daily Restless leg syndrome -Chronic; managed on ropinirole 2 mg nightly * Continue home ropinirole Insomnia -Appears to be acute on chronic (current episode ~2 days); not on any medication for sleep. Previously on Ativan for years (0.5 mg - 1 mg as needed) but this was stopped sometime ago by [facility] PCP. -Also has history of generalized anxiety, for which he is currently unmedicated -Review of discharge summary from last month shows Ativan had been discontinued by [facility] PCP. -Refused melatonin, hydroxyzine * As needed acetaminophen 500 mg-diphenhydramine 25 mg nightly for insomnia * Consider outpatient follow-up to address in depth. Suspect patient may be self-medicating with alcohol Code: Full code Dispo: PCU FEN/GI: Heart healthy DVT Prophylaxis: Home Eliquis 5 mg twice daily PT/OT: No Consults: Cardiology Case Management: No (2) HTN (hypertension): (3) Restless leg syndrome: (4) Anxiety: History of Present Illness Primary Care Provider: [facility] Aristides is a 68-year-old man with past medical history significant for atrial fibrillation (on Eliquis anticoagulation, rate controlled with metoprolol succinate) s/p cardioversion in January, CVA (2014), restless leg syndrome, and hypertension, who presented to the emergency room with heart palpitations, and insomnia x2 days. 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 He felt great throughout the trip, but has been unable to sleep since returning home 2 days ago. He denies any recent illness, fever, chills, shortness of breath, chest pain, nausea, vomiting, or pedal edema. He reports only a slight headache. In the ED, vitals were notable for elevated heart rate ranging from the 120s- 140s. Other vital signs were within normal limits. Labs were also normal, save for elevated glucose. No evidence of leukocytosis, anemia, HARSHAL, or electrolyte derangements. He received an NS bolus x1 L and hospitalist was consulted for admission for observation of AF with RVR. Allergies Allergy/AdvReac Type Severity Reaction Status Date / Time shellfish derived Allergy Anaphylaxis Verified 03/12/23 22:53 Home Medications Medication Instructions Recorded Confirmed Type lisinopril 10 mg tablet 10 mg PO QAM 11/01/19 03/12/23 History multivitamin 1 tab PO QAM 12/19/19 03/12/23 History apixaban 5 mg tablet (Eliquis) 5 mg PO BID #60 tabs 05/02/20 03/12/23 Rx ropinirole 0.5 mg tablet 2 mg PO HS #0 tabs 05/02/20 03/12/23 Rx metoprolol succinate 50 mg 50 mg PO DAILY 02/22/23 03/12/23 History tablet,extended release 24 hr Past Med/Surg History Medical History (Updated 03/12/23 @ 23:03 by Arianna De Dios PA-C) Alcohol abuse Anxiety Atrial fibrillation dx 2-3 years - on eliquis - [facility] Change in bowel movement History of stroke HTN (hypertension) Mitral regurgitation Neuropathy Osteoarthritis Palpitations Restless leg syndrome Stroke 8 years ago - right sided weakness - 2/2 htn, smoking - on eliquis Surgical History H/O hemorrhoidectomy History of colonoscopy with polypectomy History of surgery lipoma removal History of tooth extraction Family History Other No family history of adverse response to anesthesia Social History Smoking Status: Former smoker Cigarettes Per Day: 15; Second Hand Exposure: No; Do You Dip or Chew Tobacco: No; Tobacco Cessation Education Requested by Patient: No Hx Alcohol Use: Yes Alcohol type: hard liquor Hx Substance Use: Yes Last Used Substance: Days (ago) Last Used Substance Other:: 1 week ago Preferred Language: Spanish Communication Ability: Effective Heel Padder Required: No Beliefs That Will Affect Care: None Current Living Situation: Homeless Current Living Situation Comment: pt currently homeless but is living with his brother and his son's Other Information That Helps Us Care for You: No Feels Safe at Home: Declines to Answer Assistive Devices: None Review of Systems Review of Systems: All systems reviewed & are unremarkable except as noted in HPI & below Physical Exam Physical Exam: General: No acute distress HEENT: PERRLA. Normal conjunctiva, anicteric sclera. Oropharynx normal. Respiratory: Normal respiratory effort. End inspiratory crackles in right lower lobe. Otherwise CTA. Cardiovascular: Tachycardic. Irregular rhythm. No murmurs, gallops, or rubs. No pedal edema. GI: Soft abdomen with normal bowel sounds heard on auscultation. Nontender x4 quadrants Neuro: Alert and oriented x3. Results & Data Results & Data Vital Signs (Past 12 Hours) Vital Signs Temp Pulse Resp BP Pulse Ox O2 Del Method 03/12/23 23:02 120 H 112/88 03/12/23 22:10 128 H 117/86 03/12/23 21:35 140 H 130/99 03/12/23 21:17 36.8 C 128 H 20 107/72 95 Room Air Code Status & VTE Plan VTE Prophylaxis Plan VTE Prophylaxis will be ordered: Yes Supervising Physician Co-Signing Physician Notes Attending addendum: I have physically seen this patient, have supervised the medical residents activities, and agree with the H&P unless as otherwise noted. Assessment and Plan: Atrial fibrillation with RVR/hypertension- Recurrent holiday heart Alcohol cessation Continue Eliquis, history of CVA Hold lisinopril to be able to push metoprolol dosing Continue metoprolol succinate 50 mg daily Received Lopressor 5 mg IV in ED, continue as needed every 4 hours for heart rate greater than 110 Potassium 3.5, optimized to rise and record of 4 Restless leg syndrome- Continue ropinirole Remaining orders and notations as noted Resident Activity Tracking Resident Involvement: Resident Care Provided Care Provided: Adult Hospital Medicine (2) HTN (hypertension) Hypertension type: essential hypertension Qualified Code(s): I10 - Essential (primary) hypertension
[2023-03-13] MEDS ORDERED: hydrOXYzine HCl 25 MG TAB PO PRN (00:25)
[2023-03-13 01:00] LABS: Lyme Ab IgM w/WB Rflx Negative (Negative)
[2023-03-13 01:05] LABS: Lyme Ab IgG w/WB Rflx Positive (Negative)
[2023-03-13] MEDS: APIXABAN 5 MG TABLET PO SCH ×3 (01:19→21:10)
[2023-03-13] MEDS ORDERED: diphenhydrAMINE Capsule 25 MG CAP PO ONE (02:57)
[2023-03-13] MEDS ORDERED: ACETAMINOPHEN 500 MG TAB PO ONE (02:58)
[2023-03-13 05:19] LABS: Hematocrit (blood only) 41.9 % (42.0-52.0); Hemoglobin 14.6 g/dl (14.0-18.0); Mean Corpuscular Hemoglobin 31.3 pg (25.0-34.0); Mean Corpuscular Hgb Conc 34.8 g/dL (32.0-36.0); Mean Corpuscular Volume 89.9 fL (80.0-100.0); Mean Platelet Volume 11.7 fL (9.4-12.4); Platelet Count 213 K/uL (130-400); RDW Coefficient of Variation 13.2 % (11.5-14.5); RDW Standard Deviation 43.2 fL (36.4-46.3); Red Blood Count 4.66 M/uL (4.70-6.10); White Blood Count 6.62 K/ul (4.8-10.8)
[2023-03-13 05:31] LABS: BUN Creatinine Ratio 15.8 (10-20); Calcium 8.7 mg/dl (8.6-10.3); Creatinine Clr Calc Pharmacy 82.8 ml/min; Est GFR (African American) 95.6 ml/min; Est GFR (Non-African American) 82.5 ml/min; Magnesium 1.8 mg/dl (1.7-2.4); Phosphorus 2.6 mg/dl (2.5-4.9); Potassium 4.1 mmol/L (3.5-5.1)
[2023-03-13] MEDS ORDERED: ACETAMINOPHEN 500 MG TAB PO PRN (07:19)
[2023-03-13] MEDS ORDERED: diphenhydrAMINE Capsule 25 MG CAP PO PRN (07:19)
--- NOTE | 2023-03-13 07:37 | Electrocardiogram Report ---
Test Reason : Blood Pressure : / mmHG Vent. Rate : 145 BPM Atrial Rate : 000 BPM P-R Int : 000 ms QRS Dur : 080 ms QT Int : 300 ms P-R-T Axes : 000 050 023 degrees QTc Int : 466 ms Atrial fibrillation with rapid ventricular response with premature ventricular or aberrantly conducte d complexes Nonspecific ST abnormality Abnormal ECG When compared with ECG of 18-JAN-2023 13:48, Atrial fibrillation has replaced Sinus rhythm Vent. rate has increased BY 78 BPM Confirmed by Jus Pope ([id number]) on 03/13/2023 7:37:02 AM Referred By: REFERRED SELF Confirmed By:Puma Pope
[2023-03-13 08:38] LABS: Estimated Average Glucose 105 mg/dl; Hemoglobin A1C 5.3 % (4.5-5.6)
[2023-03-13] MEDS: lisinopril 10 MG TAB PO SCH (08:40)
--- NOTE | 2023-03-13 08:45 | Hospitalist Progress Note ---
Date of Service March 13, 2023 Assessment & Plan (1) Atrial fibrillation with rapid ventricular response: Plan: Patient with history of atrial fibrillation, at times does have elevated rates, typically does not seek medical attention his episodes tend to be self-limited. However, has required cardioversion in the past and may require such this admission. Overnight patient with heart rates as high as the 120s, did receive increased dose of metoprolol this morning 100 mg daily, also received a dose of flecainide per cardiology provider. Had spontaneous conversion to normal sinus rhythm later this afternoon. Continue to monitor overnight, can consider cardioversion if becomes necessary. Continue Eliquis 5 mg twice daily, and home metoprolol 50 mg daily dosing. Question if patient's alcohol consumption plays a role in exacerbation of A-fib RVR event. Lyme IgM negative, IgG positive with bands pending. Continue telemetry for cardiac monitoring overnight. (2) Anxiety: Plan: Anxiety and insomnia: Acute on chronic, had previously been on Ativan for several years (0.5 mg nightly for about 6 years total), was taken off of this medication several years ago by [place] primary care provider. Once in a while will be given a 2 or 3-day course of the medication and episodes of severe panic and insomnia, for example over the last 4 days has not been able to sleep more than an hour or 2 here or there due to increasing anxiety. Patient reports that he has been on melatonin, hydroxyzine, trazodone in the past without relief. He does not endorse nightmares or PTSD related difficulties with sleep, more so anxiety is worst at night when he does not have activities to keep his mind off of his anxieties. PDMP was reviewed and last prescription for benzodiazepine was in January 2023 for 5 alprazolam 0.25 mg tablets, prior to that in May 2022 for 10 lorazepam 0.5 mg tablets. Patient certainly needs outpatient follow-up in this regard, and did have a long discussion with him about the fact that Ativan is not a long- term solution for insomnia or anxiety. However, given that the patient's anxiety is so severe that he has not slept for 4 days, and is likely causing some increase in his heart rate as well, I am amenable to him receiving Ativan this evening for sleep, but let him know that I would not be amenable to prescribing him the medication for discharge from the hospital and that he will need to discuss with his primary care provider/psychiatrist if he has them. (3) HTN (hypertension): Plan: Continue home lisinopril 10 mg daily (4) Restless leg syndrome: Plan: Continue home ropinirole Plan Case management provided info for housing transitions, food [place], homeless shelters. No other Case management discharge needs identified at this time. Admission and Anticipated Discharge Date Admission Date: March 12, 2023 Subjective Overnight continued to be in A-fib with rapid ventricular response in the [id number], associated anxiety symptoms and some sensation of palpitations. He notes that he has not slept in the last 4 days due to significant anxiety from social stressors, losing his house, difficulty with finding a place to live. Does have a friend that he can move in with but understandably this is created some increase in stress in his life. Review of Systems Review of Systems: All systems reviewed & are unremarkable except as noted in Subjective Physical Exam Constitutional: WD/WN, vitals as above Respiratory: normal respiratory effort, lungs clear to auscultation Cardiovascular: Heart rate irregularly irregular, no murmurs, no peripheral edema Gastrointestinal (Abdomen): normal bowel sounds, soft, nontender, no hepatosplenomegaly Skin: no rashes, warm and dry Psychiatric: Alert and oriented, anxious affect Results & Data Results & Data Vital Signs (Past 12 Hours) Vital Signs Temp Pulse Pulse Resp BP BP Pulse Ox 03/13/23 08:16 36.4 C L 70 19 119/72 96 03/13/23 08:00 103 H 03/13/23 08:00 03/13/23 03:00 36.6 C 90 20 105/69 96 03/13/23 01:23 100 H 03/13/23 00:32 36.3 C L 140 H 18 109/73 96 03/13/23 00:19 102 H 97 03/12/23 21:30 147 H 03/12/23 23:02 120 H 112/88 03/12/23 22:10 128 H 117/86 03/12/23 21:35 140 H 130/99 03/12/23 21:17 36.8 C 128 H 20 107/72 95 O2 Del Method 03/13/23 08:16 Room Air 03/13/23 08:00 03/13/23 08:00 Room Air 03/13/23 03:00 Room Air 06/11/23 01:23 03/13/23 00:32 Room Air 03/13/23 00:19 Room Air 03/12/23 21:30 03/12/23 23:02 03/12/23 22:10 03/12/23 21:35 03/12/23 21:17 Room Air PG Care Time/CCT Total # of Minutes Spent Total Time Spent with Patient: Total time spent is greater than 50% in coordination of care (as documented) at patient's floor/unit and/or counseling patient: Coding Level of Care Code 75501 SUB INP/OBS CARE 3/50MIN Diagnoses Atrial fibrillation with rapid ventricular response I48.91 Anxiety F41.9 HTN (hypertension) I10 Hypertension type: essential hypertension Restless leg syndrome G25.81 (3) HTN (hypertension) Hypertension type: essential hypertension Qualified Code(s): I10 - Essential (primary) hypertension
[2023-03-13] MEDS ORDERED: METOPROLOL SUCC 50MG EXT REL TAB PO SCH ×2 (09:00)
--- NOTE | 2023-03-13 09:32 | XRay Report ---
XR chest 1V portable CLINICAL HISTORY: Dysrhythmia TECHNIQUE: Single frontal radiograph of the chest was obtained. Comparison: Comparison is made to chest radiograph 01/17/2023 FINDINGS: No lines and tubes are seen. The cardiomediastinal silhouette is normal. The lungs are clear. No evid ence of pleural effusion or pneumothorax. IMPRESSION: No acute chest disease. ACT 112: Negative or not required by law. Electronically signed by: Juan Flores M.D. 03/13/2023 9:30 AM
--- NOTE | 2023-03-13 09:33 | Cardiology Consultation ---
Date of Consultation March 13, 2023 Assessment & Plan (1) Atrial fibrillation with rapid ventricular response: Plan 1. Atrial fibrillation: He has a long history of atrial fibrillation and some elevated rates at times. Generally speaking, the episodes are well tolerated. In fact, he rarely seeks medical attention as they tend to be limited less than 24 hours. His admission in January was related to more prolonged episode and did require cardioversion. He was seen in the outpatient setting and we discussed additional options for treatment to include pill in the pocket flecainide or daily flecainide should the episodes themselves become more frequent. These are still good options. The option for catheter based therapy also exists if these measures are ineffectual or he prefers not to take medication. I think if he still in atrial fibrillation later this morning we can give him 1 dose of flecainide to see if he converts. If not, he could stay in the hospital until tomorrow and we could plan a cardioversion. Alternatively, if the patient wishes to leave the hospital I think that is also reasonable and he can be seen in the outpatient setting or cardioversion arranged on an outpatient basis. He should continue systemic anticoagulation indefinitely with Eliquis. 2. Mitral regurgitation: Mild on his last echocardiogram. No loud murmur today. We can follow this over time. History of Present Illness Reason for Consultation: Atrial fibrillation Requesting Physician: Carmela Attending Physician: Kerry Mena, DO History of Present Illness the patient is a 68-year-old gentleman with a well-established history of paroxysmal atrial fibrillation presented to the emergency room due to concerns palpitations and rapid heartbeat. Patient has not been feeling well lately and has been concerned about anxiety and insomnia. He recently made a road trip to [place] to help a friend. He reported not sleeping for the last 3 days. He has been very anxious due to financial and social concerns as well. Yesterday evening he was somewhat agitated and believes he triggered an episode of atrial fibrillation. Again, this is generally manifest by a sense of a more rapid heartbeat and more forceful heartbeat. He presented to the emergency room for evaluation. He did not report any associated dizziness, lightheadedness, breathing difficulty or chest pain. Patient was admitted to the hospital in January for similar symptoms. At that time he had had an episode of atrial fibrillation he believes was lasting several days. He did undergo cardioversion and since that time states he has felt quite well. He generally has not experienced any palpitations or change in his heart rhythm. His history of atrial fibrillation dates back many years when he 1st presented with a TIA. His typical pattern involves episodes last less than 24 hours and resolved spontaneously. These tend to happen fairly infrequently, perhaps twice yearly. He does drink alcohol regularly. However, he reports limiting himself to 2 drinks daily. He has not consumed more recently by his report. while he is still aware of his atrial fibrillation this morning, his bigger concern is anxiety and insomnia. Allergies Allergy/AdvReac Type Severity Reaction Status Date / Time shellfish derived Allergy Anaphylaxis Verified 03/12/23 22:53 Home Medications Medication Instructions Recorded Confirmed Type lisinopril 10 mg tablet 10 mg PO QAM 11/01/19 03/12/23 History multivitamin 1 tab PO QAM 12/19/19 03/12/23 History apixaban 5 mg tablet (Eliquis) 5 mg PO BID #60 tabs 05/02/20 03/12/23 Rx ropinirole 0.5 mg tablet 2 mg PO HS #0 tabs 05/02/20 03/12/23 Rx metoprolol succinate 50 mg 50 mg PO DAILY 02/22/23 03/12/23 History tablet,extended release 24 hr Patient History Medical History (Updated 03/12/23 @ 23:03 by Arianna De Dios PA-C) Alcohol abuse Anxiety Atrial fibrillation dx 2-3 years - on eliquis - [facility] Change in bowel movement History of stroke HTN (hypertension) Mitral regurgitation Neuropathy Osteoarthritis Palpitations Restless leg syndrome Stroke 8 years ago - right sided weakness - 2/2 htn, smoking - on eliquis Surgical History H/O hemorrhoidectomy History of colonoscopy with polypectomy History of surgery lipoma removal History of tooth extraction Family History Other No family history of adverse response to anesthesia Social History Smoking Status: Former smoker Cigarettes Per Day: 15; Second Hand Exposure: No; Do You Dip or Chew Tobacco: No; Tobacco Cessation Education Requested by Patient: No Hx Alcohol Use: Yes Alcohol type: hard liquor Hx Substance Use: Yes Last Used Substance: Days (ago) Last Used Substance Other:: 1 week ago Preferred Language: Upper Sorbian Communication Ability: Effective Assistant Guest Services Manager Required: No Beliefs That Will Affect Care: None Current Living Situation: Homeless Current Living Situation Comment: pt currently homeless but is living with his brother and his son's Other Information That Helps Us Care for You: No Feels Safe at Home: Declines to Answer Assistive Devices: CPAP and Glasses Review of Systems Review of Systems: Per HPI. Physical Exam Physical Exam: The patient is alert and oriented. Mood and affect appeared normal. He answered all questions appropriately. HEENT: Pupils are equal and reactive to light and accommodation. Extraocular movements are intact. The sclerae are anicteric. Neuro: Cranial nerves intact Neck: Patient's neck is supple. He has palpable carotid pulses bilaterally without bruits on auscultation. There is no evidence of jugular venous distention. The thyroid is not enlarged. Lungs: Clear to auscultation bilaterally. He has good air movement without use of accessory muscles. No rales wheezes or rhonchi. Cardiac: Heart demonstrates an irregular rate and rhythm. Normal S1 and S2. No murmurs on examination. Pulses: The patient has palpable radial pulses bilaterally that are equal in intensity Extremities: There was no evidence of hypoperfusion. There is no cyanosis or clubbing. There is no edema. Skin: I did not appreciate any rashes on examination today. Results & Data Vital Signs (Past 12 Hours) Vital Signs Temp Pulse Pulse Resp BP BP Pulse Ox 03/13/23 08:16 36.4 C L 70 19 119/72 96 03/13/23 08:00 103 H 03/13/23 08:00 03/13/23 03:00 36.6 C 90 20 105/69 96 03/13/23 01:23 100 H 03/13/23 00:32 36.3 C L 140 H 18 109/73 96 03/13/23 00:19 102 H 97 03/12/23 21:30 147 H 03/12/23 23:02 120 H 112/88 03/12/23 22:10 128 H 117/86 03/12/23 21:35 140 H 130/99 O2 Del Method 03/13/23 08:16 Room Air 03/13/23 08:00 03/13/23 08:00 Room Air 03/13/23 03:00 Room Air 03/13/23 01:23 03/13/23 00:32 Room Air 03/13/23 00:19 Room Air 03/12/23 21:30 03/12/23 23:02 03/12/23 22:10 03/12/23 21:35 Laboratory Results Abnormal Lab Results 03/12/23 03/12/23 03/12/23 21:30 21:30 21:30 WBC 7.33 RBC 5.18 Hgb 16.1 Hct 45.7 MCV 88.2 MCH 31.1 MCHC 35.2 RDW Std Deviation 42.4 RDW Coeff of Alejandro 13.1 Plt Count 234 MPV 11.6 Immature Gran % (Auto) 0.1 Neut % (Auto) 64.4 Lymph % (Auto) 24.4 Lee % (Auto) 8.5 Eos % (Auto) 2.2 Baso % (Auto) 0.4 Neut # (Auto) 4.72 Lymph # (Auto) 1.79 Lee # (Auto) 0.62 H Eos # (Auto) 0.16 Baso # (Auto) 0.03 Immature Gran # (Auto) 0.01 Sodium 139 Potassium 3.5 Chloride 106 Carbon Dioxide 25 Anion Gap 8 BUN 16 Creatinine 0.97 Est Cr Clr Drug Dosing 81.1 Est GFR ( Amer) 93.2 Est GFR (Non-Af Amer) 80.5 BUN/Creatinine Ratio 16.5 Glucose 153 H Estimat Average Glucose Hemoglobin A1c Calcium 9.4 Phosphorus Magnesium 2.0 Total Bilirubin 0.4 AST 20 ALT 17 Alkaline Phosphatase 51 Troponin I High Sens 8.0 Total Protein 6.9 Albumin 4.2 Globulin 2.7 Albumin/Globulin Ratio 1.6 TSH 0.795 Ethyl Alcohol mg/dL Lyme Disease IgG Ab Lyme Disease IgM Ab 03/12/23 03/12/23 03/12/23 21:30 21:30 22:46 WBC RBC Hgb Hct MCV MCH MCHC RDW Std Deviation RDW Coeff of Alejandro Plt Count MPV Immature Gran % (Auto) Neut % (Auto) Lymph % (Auto) Lee % (Auto) Eos % (Auto) Baso % (Auto) Neut # (Auto) Lymph # (Auto) Lee # (Auto) Eos # (Auto) Baso # (Auto) Immature Gran # (Auto) Sodium Potassium Chloride Carbon Dioxide Anion Gap BUN Creatinine Est Cr Clr Drug Dosing Est GFR ( Amer) Est GFR (Non-Af Amer) BUN/Creatinine Ratio Glucose Estimat Average Glucose Hemoglobin A1c Calcium Phosphorus Magnesium Total Bilirubin AST ALT Alkaline Phosphatase Troponin I High Sens 11.1 Total Protein Albumin Globulin Albumin/Globulin Ratio TSH Ethyl Alcohol mg/dL < 10.0 Lyme Disease IgG Ab Positive A Lyme Disease IgM Ab Negative 03/13/23 03/13/23 03/13/23 04:50 04:50 04:50 WBC 6.62 RBC 4.66 L Hgb 14.6 Hct 41.9 L MCV 89.9 MCH 31.3 MCHC 34.8 RDW Std Deviation 43.2 RDW Coeff of Alejandro 13.2 Plt Count 213 MPV 11.7 Immature Gran % (Auto) Neut % (Auto) Lymph % (Auto) Lee % (Auto) Eos % (Auto) Baso % (Auto) Neut # (Auto) Lymph # (Auto) Lee # (Auto) Eos # (Auto) Baso # (Auto) Immature Gran # (Auto) Sodium 140 Potassium 4.1 Chloride 112 H Carbon Dioxide 24 Anion Gap 4 BUN 15 Creatinine 0.95 Est Cr Clr Drug Dosing 82.8 Est GFR ( Amer) 95.6 Est GFR (Non-Af Amer) 82.5 BUN/Creatinine Ratio 15.8 Glucose 105 H Estimat Average Glucose 105 Hemoglobin A1c 5.3 Calcium 8.7 Phosphorus 2.6 Magnesium 1.8 Total Bilirubin AST ALT Alkaline Phosphatase Troponin I High Sens Total Protein Albumin Globulin Albumin/Globulin Ratio TSH Ethyl Alcohol mg/dL Lyme Disease IgG Ab Lyme Disease IgM Ab Diagnostic Findings Echocardiogram obtained 01/18/2023: Normal LV systolic function. Mild right ventricular dilation. Mild mitral regurgitation. Chest x-ray was obtained the time admission which did not reveal any acute cardiopulmonary process. ECG Additional Comments: EKG obtained the time admission revealed atrial fibrillation and rapid ventricular response along with some aberrant conduction. PG Care Time/CCT Total # of Minutes Spent Total Time Spent with Patient: Total time spent is greater than 50% in coordination of care (as documented) at patient's floor/unit and/or counseling patient: Coding Level of Care Code 74904 INT INP/OBS CARE 3/75MIN Diagnoses Atrial fibrillation with rapid ventricular response I48.91
[2023-03-13] MEDS ORDERED: FLECAINIDE ACETATE 100 MG TABLET PO ONE (10:09)
[2023-03-13] MEDS ORDERED: LORazepam 0.5 MG TAB PO PRN (17:30)
--- NOTE | 2023-03-13 19:32 | Billing Data ---
Date of Service March 13, 2023 Coding Level of Care Code 92629 INT INP/OBS CARE
[2023-03-13] MEDS ORDERED: rOPINIRole HCL 2 MG TABLET PO SCH (21:00)
[2023-03-14 06:11] LABS: Hematocrit (blood only) 40.3 % (42.0-52.0); Hemoglobin 13.7 g/dl (14.0-18.0); Mean Corpuscular Hemoglobin 31.1 pg (25.0-34.0); Mean Corpuscular Volume 91.6 fL (80.0-100.0); Mean Platelet Volume 11.6 fL (9.4-12.4); Platelet Count 203 K/uL (130-400); RDW Coefficient of Variation 13.4 % (11.5-14.5); RDW Standard Deviation 45.7 fL (36.4-46.3); White Blood Count 6.75 K/ul (4.8-10.8)
[2023-03-14 06:24] LABS: Calcium 8.7 mg/dl (8.6-10.3); Creatinine Clr Calc Pharmacy 78.7 ml/min; Est GFR (African American) 89.9 ml/min; Est GFR (Non-African American) 77.5 ml/min; Magnesium 1.9 mg/dl (1.7-2.4); Phosphorus 2.9 mg/dl (2.5-4.9); Potassium 4.1 mmol/L (3.5-5.1)
[2023-03-14] MEDS ORDERED: METOPROLOL SUCC 50MG EXT REL TAB PO SCH (09:00)
[2023-03-14] MEDS: APIXABAN 5 MG TABLET PO SCH (09:04)
[2023-03-14] MEDS: lisinopril 10 MG TAB PO SCH (09:04)
--- NOTE | 2023-03-14 11:05 | Discharge Summary ---
Date of Service March 14, 2023 Admission HPI Per Admitting Provider Aristides is a 68-year-old man with past medical history significant for atrial fibrillation (on Eliquis anticoagulation, rate controlled with metoprolol succinate) s/p cardioversion in January, CVA (2014), restless leg syndrome, and hypertension, who presented to the emergency room with heart palpitations, and insomnia x2 days. 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 He felt great throughout the trip, but has been unable to sleep since returning home 2 days ago. He denies any recent illness, fever, chills, shortness of breath, chest pain, nausea, vomiting, or pedal edema. He reports only a slight headache. In the ED, vitals were notable for elevated heart rate ranging from the 120s- 140s. Other vital signs were within normal limits. Labs were also normal, save for elevated glucose. No evidence of leukocytosis, anemia, HARSHAL, or electrolyte derangements. He received an NS bolus x1 L and hospitalist was consulted for admission for observation of AF with RVR. Principal Diagnosis Chronic atrial fibrillation with rapid ventricular rate Discharge Exam General-alert and oriented x3, no fevers, no chills HEENT-head atraumatic and normocephalic,pupils equal and reactive to light, extraocular muscles intact Neck-no lymphadenopathy or thyromegaly, trachea midline Chest-clear to auscultation percussion. No rales wheezing or rhonchi Cardiac-regular rate and rhythm, normal S1 and S2 Abdomen-normal bowel sounds, nontender, no hepatosplenomegaly Extremities-no cyanosis, clubbing, or edema Neuro-cranial nerves II through XII intact, motor and sensory function within normal limits, strength symmetrical , no focal deficits Psych-normal affect, normal mood Discharge Data Allergies Allergy/AdvReac Type Severity Reaction Status Date / Time shellfish derived Allergy Anaphylaxis Verified 03/12/23 22:53 Consultations 03/12/23 22:23 ED Decision to Admit Stat 03/12/23 22:47 Consult Cardiology Routine Hospital Course (1) Atrial fibrillation with rapid ventricular response: The patient converted to normal sinus rhythm after given 1 dose of flecainide by cardiology. He remains on metoprolol. EKG today reveals normal sinus rhythm. He will be discharged home on his previous medications and follow-up with cardiology as an outpatient. (2) HTN (hypertension): Stable. Continue metoprolol and lisinopril (3) Restless leg syndrome: Stable. Continue Requip (4) Anxiety: Stable. Continue current medical management Plan Stable for discharge home today, March 14. Continue metoprolol. Follow-up with cardiology as an outpatient to determine if daily flecainide is necessary. Continue Eliquis. Total Time Total Time Spent Total Time Spent (In Minutes): 35 minutes Discharge Plan Discharge Items Patient Disposition: Home - Self-Care Reason For Visit: PALPITATIONS / ARRHYTHMIA Discharge Diagnosis: Chronic atrial fibrillation with rapid ventricular rate Condition on Discharge: Good Activity: Resume your previous activity Non-emergency contact: Primary Care Provider Call non-emergency contact if: you have any medication questions and your symptoms worsen Follow-up/Referrals: [facility] [Primary Care Provider] - Diet: Regular and Heart Healthy Addtl Attending Provider Instructions: No new medications at this time Pending Studies at Discharge: No Stand-Alone Forms: My [facility] [employer], Smoking Cessation Medications and DC Order Prescriptions: Continued metoprolol succinate 50 mg tablet extended release 24 hr 50 mg PO DAILY multivitamin Tablet 1 tab PO QAM lisinopril 10 mg Tablet 10 mg PO QAM Eliquis 5 mg Tablet 5 mg PO BID Qty: 60 3RF ropinirole 0.5 mg Tablet 2 mg PO HS Qty: 0 0RF Discharge Orders: Discharge Order (Routine); Ordered 03/14/23 Ordered By: Dimas Hopkins Admission Data Admit Date/Time: 03/12/23 22:46 Attending Provider: Dimas Hopkins Admit Provider: Mila Casey Primary Care Provider: [facility] Other Providers: Marito Edwards ; Jus Pope Coding Level of Care Code 09232 INP/OBS DISCH >30 MIN Diagnoses Atrial fibrillation with rapid ventricular response I48.91 HTN (hypertension) I10 Hypertension type: essential hypertension Restless leg syndrome G25.81 Anxiety F41.9
--- NOTE | 2023-03-14 15:55 | Electrocardiogram Report ---
Test Reason : Blood Pressure : / mmHG Vent. Rate : 060 BPM Atrial Rate : 060 BPM P-R Int : 150 ms QRS Dur : 096 ms QT Int : 410 ms P-R-T Axes : 045 040 015 degrees QTc Int : 410 ms Normal sinus rhythm Normal ECG When compared with ECG of 12-MAR-2023 21:24, Sinus rhythm has replaced Atrial fibrillation Vent. rate has decreased BY 85 BPM Confirmed by Jus Pope ([id number]) on 03/14/2023 3:54:39 PM Referred By: REFERRED SELF Confirmed By:Puma Pope
--- NOTE | 2023-03-14 18:04 | Electrocardiogram Report ---
Test Reason : Blood Pressure : / mmHG Vent. Rate : 061 BPM Atrial Rate : 061 BPM P-R Int : 152 ms QRS Dur : 094 ms QT Int : 428 ms P-R-T Axes : 017 053 016 degrees QTc Int : 430 ms Normal sinus rhythm Normal ECG When compared with ECG of 13-MAR-2023 11:51, (unconfirmed) No significant change was found Confirmed by Jus Pope ([id number]) on 03/14/2023 6:03:55 PM Referred By: REFERRED SELF Confirmed By:Puma Pope
[2023-03-16 02:21] LABS: 18KDIGG Band REACTIVE; 23KDIGG Band REACTIVE; 23KDIGM Band REACTIVE; 28KDIGG Band NON-REACTIVE; 30KDIGG Band NON-REACTIVE; 39KDIGG Band NON-REACTIVE; 39KDIGM Band NON-REACTIVE; 41KDIGG Band REACTIVE; 41KDIGM Band NON-REACTIVE; 45KDIGG Band NON-REACTIVE; 58KDIGG Band NON-REACTIVE; 66KDIGG Band NON-REACTIVE; 93KDIGG Band NON-REACTIVE; Lyme Antibodies, WB IgG NEGATIVE (NEGATIVE); Lyme Antibodies, WB IgM NEGATIVE (NEGATIVE)
== END 2023-03-14 13:52 | disposition home or self-care (01) ==
LOC: 4W 21:13 → ED 21:13 → SUATTDRO 22:46 → 4W 03-13 00:19